=== PATIENT | female | born 1945 | race Two or more races ===

== ENCOUNTER 2017-01-18 08:38 | Inpatient (IN) | payer BC, MEDICAID ==
[~2017-01-18] VITALS: Ht 160 cm; Wt 79.8 kg
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
[2017-01-18 08:45] VITALS: BP 117/51
[2017-01-18 09:04] LABS: BASOPHILS % (AUTO) 0.2 % (0.0-2.0); EOSINOPHILS % (AUTO) 0.1 % (0.0-6.0); HEMATOCRIT 28 % (33-45); HEMOGLOBIN 9.5 g/dL (11.5-14.8); LYMPHOCYTES # (AUTO) 1.5 /CMM (0.8-4.8); LYMPHOCYTES % (AUTO) 13.2 % (20.0-44.0); MEAN CORPUSCULAR HEMOGLOBIN 30 PG (26.0-33.0); MEAN CORPUSCULAR HGB CONC 34 g/dl (31.0-36.0); MEAN CORPUSCULAR VOLUME 88 fL (82-100); MONOCYTES # (AUTO) 0.5 /CMM (0.1-1.30); MONOCYTES % (AUTO) 4.6 % (2.0-12.0); NEUTROPHILS # (AUTO) 9.5 /CMM (1.8-8.9); NEUTROPHILS % (AUTO) 81.9 % (43.0-81.0); PLATELET COUNT (AUTO) 261 /CMM (150-450); RDW COEFFICIENT OF VARIATION 15.6 (11.5-15.0); RED BLOOD CELL COUNT(AUTO) 3.22 MIL/uL (4.0-5.2); WHITE BLOOD COUNT (AUTO) 11.6 K/uL (4.3-11.0)
--- NOTE | 2017-01-18 09:05 | NUR ---
XRAY AT BEDSIDE
[2017-01-18 09:13] LABS: CALCIUM, SERUM 10.1 mg/dL (8.5-10.1); CARBON DIOXIDE 28 mmol/L (21-32); CHLORIDE 99 mmol/L (98-107); CREATININE 1.5 mg/dL (0.6-1.3); GLUCOSE 139 mg/dL (74-106); POTASSIUM 5.1 mmol/L (3.5-5.1); SODIUM SERUM 136 mmol/L (136-145); UREA NITROGEN, BLOOD 35 mg/dL (7-18)
[2017-01-18 09:19] LABS: ALANINE AMINOTRANSFERASE 41 U/L (12-78); ALBUMIN 2.9 g/dL (3.4-5.0); ALKALINE PHOSPHATASE 165 U/L (46-116); ASPARTATE AMINOTRANSFERASE 58 U/L (15-37); BILIRUBIN,DIRECT 0.2 mg/dL (0.0-0.2); BILIRUBIN,TOTAL 0.5 mg/dL (0.2-1.0); TOTAL PROTEIN, SERUM 10.2 g/dL (6.4-8.2)
[2017-01-18 09:21] LABS: TROPONIN I < 0.017 ng/mL (0.00-0.056)
[2017-01-18 09:23] LABS: ACETAMINOPHEN 0 ug/ml (10-30); ALCOHOL, BLOOD < 3 mg/dL (0-0); SALICYLATE 1.5 mg/dL (2.8-20.0)
--- NOTE | 2017-01-18 10:03 | NUR ---
panel batch or continuous still operator paged
--- NOTE | 2017-01-18 10:05 | NUR ---
UA COLLECTED, SENT TO LAB
--- NOTE | 2017-01-18 10:27 | NUR ---
ASSIGNED BED 319. GIVE REPORT TO PAUL SANCHEZ
[2017-01-18] MEDS ORDERED: IV NS 0.9% 500 ML BAG IV ONE (10:30)
[2017-01-18] MEDS ORDERED: FURO20TA4 GT (10:37)
[2017-01-18] MEDS ORDERED: ISOS10TA2 GT (10:37)
[2017-01-18] MEDS ORDERED: IPRA3AMP IH (10:37)
[2017-01-18] MEDS ORDERED: PANT40SU2 GT (10:37)
[2017-01-18] MEDS ORDERED: CHOL200026 GT (10:37)
[2017-01-18] MEDS ORDERED: ASPI81TA2 GT (10:37)
[2017-01-18] MEDS ORDERED: ZOLP5TAB7 GT (10:37)
[2017-01-18] MEDS ORDERED: LEVE500T20 GT (10:37)
[2017-01-18] MEDS ORDERED: GABA-532 GT (10:37)
[2017-01-18] MEDS ORDERED: QUET50TA GT (10:37)
[2017-01-18] MEDS ORDERED: NPH,100V SQ (10:37)
[2017-01-18] MEDS ORDERED: CLON0.5T4 GT (10:37)
[2017-01-18] MEDS ORDERED: OLAN5TAB3 GT (10:37)
[2017-01-18] MEDS ORDERED: LEVO100T9 GT (10:37)
[2017-01-18] MEDS ORDERED: DIVA250T GT (10:37)
[2017-01-18] MEDS ORDERED: BLOO-668 IN (10:37)
[2017-01-18] MEDS ORDERED: FOLI1TAB16 GT (10:37)
[2017-01-18] MEDS ORDERED: ATOR20TA GT (10:37)
[2017-01-18] MEDS ORDERED: INSU100V27 SQ (10:37)
[2017-01-18] MEDS ORDERED: QUET100T PO (10:37)
[2017-01-18] MEDS ORDERED: ACET325T53 GT (10:40)
[2017-01-18] MEDS ORDERED: LORA1TAB GT (10:40)
[2017-01-18] MEDS ORDERED: ACET-73 GT (10:40)
--- NOTE | 2017-01-18 10:44 | NUR ---
REPORT GIVEN TO GALINA, MED SURG 3RD FLOOR
[2017-01-18] MEDS ORDERED: CIPR2.5D EACHEYE (10:51)
[2017-01-18 11:00] LABS: BILIRUBIN,URINE Negative (NEGATIVE); BLOOD, URINE Trace-intact Ery/uL (NEGATIVE); COLOR,URINE Yellow (YELLOW); KETONES,URINE Negative (NEGATIVE); LEUKOCYTE ESTERASE ,URINE Small (NEGATIVE); NITRITE, URINE Negative (NEGATIVE); PH,URINE 6.5 (5.0-8.0); PROTEIN,URINE Negative (NEGATIVE); UGLUCOSE Negative (NEGATIVE); UROBILINOGEN,URINE 0.2 EU/dL (0.2)
[2017-01-18 11:02] LABS: APPEARANCE,URINE Hazy (CLEAR)
[2017-01-18 11:05] LABS: BACTERIA,URINE None seen /HPF (None Seen)
[2017-01-18 11:06] LABS: SQUAMOUS EPITHELIAL CELL,UR Few /HPF (None Seen)
[2017-01-18 11:30] VITALS: BP 132/56
[2017-01-18] MEDS ORDERED: ACETAMINOPHEN 325 MG TABLET MC PRN (11:30)
[2017-01-18] MEDS ORDERED: MAG HYDROX/AL HYDROX/SIMETH 30 ML UDC PO PRN (11:30)
[2017-01-18] MEDS ORDERED: MAGNESIUM HYDROXIDE 30 ML UDC PO PRN (11:30)
[2017-01-18] MEDS ORDERED: ZOLPIDEM TARTRATE 5 MG TABLET PO PRN (11:30)
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
[2017-01-18] MEDS: IV NS 0.9% 1,000 ML IV PRN (11:53)
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
[2017-01-18] MEDS: BLOOD SUGAR DIAGNOSTIC 1 EACH STRIP IN SCH ×2 (12:58→17:38)
[2017-01-18] MEDS: LEVETIRACETAM SOL (5 ML) 100 MG/ML UDC GT SCH ×2 (12:59→22:07)
[2017-01-18] MEDS: DIVALPROEX SODIUM 125 MG CAP.SPRINK GT SCH ×2 (13:00→22:05)
[2017-01-18] MEDS: CIPROFLOXACIN HCL 0.3% 5 ML BOTTLE EACHEYE SCH ×3 (13:00→22:04)
[2017-01-18] MEDS: GABAPENTIN 100 MG CAPSULE GT SCH ×2 (13:00→22:09)
[2017-01-18] MEDS: ENOXAPARIN SODIUM 30 MG/0.3 ML DISP.SYRIN SQ SCH (13:00)
[2017-01-18] MEDS: IPRATROPIUM NEB FS 0.5 MG/2.5 ML AMPUL.NEB NEB SCH ×2 (13:26→20:03)
[2017-01-18] MEDS: ALBUTEROL FS 2.5 MG/0.5 ML VIAL.NEB NEB SCH ×2 (13:26→20:03)
[2017-01-18] MEDS ORDERED: Medication Not On Formulary EA (Ipratropium/Albuterol Sulfate (Duoneb 2.5-0.5 Mg/3 Ml So IH SCH (13:30)
[2017-01-18] MEDS ORDERED: GLYTROL 1,000 ML BAG GT SCH ×2 (14:00→18:10)
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
[2017-01-18 16:00] VITALS: BP 130/52
--- NOTE | 2017-01-18 16:00 | NUR ---
PT WAS SEEN BY TANIAPIPE AND BOILER COVERS SUPERVISOR WHO NOTIFIED APS(ADULT PROTECTION SERVICES) FOR THE PT.
--- NOTE | 2017-01-18 17:00 | NUR ---
PT WAS SEEN BY PSYCH UPKEEP MECHANIC,DR RUSHING WITH NO NEW ORDERS SAYING THAT 51/50 CRITERIA IS NOT MET AND PT DIDN'T VERBALIZE ANY SUICIDAL IDEATIONS.
[2017-01-18] MEDS: QUETIAPINE FUMARATE 25 MG TABLET GT SCH (17:37)
--- NOTE | 2017-01-18 18:14 | NUR ---
UNIFORM ATTENDANT: CLOSING NOTE PT ALERT AND ORIENTED X3. ON VENTILATOR. SATING AT 98%. NO DISTRESS NOTED. NO SOB NOTED. NO PAIN NOTED. RUNNING G-TUBE LUQ WITH GLYTROL AT 65ML/HR FOR 20 HOURS. NO RESIDUAL NOTED. G-TUBE PATENT. NO REDNESS. NO PAIN AT SITE. ALL MEDICATIONS GIVEN VIA G-TUBE. NO ADVERSE REACTIONS NOTED. SKIN INTACT. R AC RUNNING NS AT 75ML/HR. CONTACT DAUGHTER FREDDIE AT FOR ANY QUESTIONS OR UPDATES. PT IS ROMANIAN SPEAKING ONLY. RESTING COMFORTABLY IN BED. CALL LIGHT WITHIN REACH.
--- NOTE | 2017-01-18 19:30 | NUR ---
TELE/ACCOUNT RETENTION REPRESENTATIVE; RECEIVED PT FROM THE DAY SHIFT RN REPORT FOR CONTINUITY OF CARE. PT AT THIS TIME IN BED AWAKE, NON VERBAL . TRACH/ VENT INTACT. IVF ON PROGRESS NS AT 75 ML / HOUR ON RAC INFUSING FINE. GT FEEDING ON PROGRESS WITH 5 ML RESIDUAL. GT SITE INTACT NO DRAINAGE. BED ON LOWER POSITION AND LOCKED FOR SAFETY. SIDE RAILS ARE UP FOR SAFETY. WITH TELEMETRY ON. CONTINUE TO MONITOR . CALL LIGHT WITHIN REACH.
[2017-01-18 20:00] VITALS: BP 123/76
[2017-01-18] MEDS: Z GUARD REMEDY 4 OZ OINT TP SCH (21:00)
--- NOTE | 2017-01-18 21:30 | NUR ---
TELE/ASSISTANCE COORDINATOR; BS 236 NOVOLIN N 32 UNITS SQ GIVEN ORDERED.
[2017-01-18] MEDS: INSULIN NPH, HUMAN ISOPHANE 100 UNIT/ML VIAL SQ SCH (21:39)
[2017-01-18] MEDS: ISOSORBIDE DINITRATE (10MG) 10 MG TABLET GT SCH (22:07)
[2017-01-18] MEDS: FUROSEMIDE 20 MG TABLET GT SCH (22:08)
[2017-01-18] MEDS: OLANZAPINE 5 MG TABLET GT SCH (22:10)
[2017-01-18] MEDS: ATORVASTATIN 10 MG TABLET GT SCH (22:13)
[2017-01-18] MEDS: clonazePAM 0.5 MG TABLET GT SCH (22:13)
[2017-01-18] MEDS: QUETIAPINE FUMARATE 100 MG TABLET PO SCH (22:14)
[2017-01-19] VITALS (7 sets, daily range): BP systolic 121–138; BP diastolic 49–81
--- NOTE | 2017-01-19 | NUR ---
TELE/PHOTOGRAPHIC EQUIPMENT TECHNICIAN; BS 276 NO SLIDING SCALE COVERAGE ORDER. CHARGE NURSE MADE AWARE.
[2017-01-19] MEDS: BLOOD SUGAR DIAGNOSTIC 1 EACH STRIP IN SCH ×4 (00:04→17:03)
[2017-01-19] MEDS: CIPROFLOXACIN HCL 0.3% 5 ML BOTTLE EACHEYE SCH ×6 (00:51→21:26)
[2017-01-19] MEDS: IV NS 0.9% 1,000 ML IV PRN (01:27)
[2017-01-19] MEDS: IPRATROPIUM NEB FS 0.5 MG/2.5 ML AMPUL.NEB NEB SCH ×4 (01:59→20:06)
[2017-01-19] MEDS: ALBUTEROL FS 2.5 MG/0.5 ML VIAL.NEB NEB SCH ×4 (01:59→20:06)
[2017-01-19] MEDS: DIVALPROEX SODIUM 125 MG CAP.SPRINK GT SCH ×3 (05:21→21:25)
[2017-01-19] MEDS: GABAPENTIN 100 MG CAPSULE GT SCH ×3 (05:22→21:27)
--- NOTE | 2017-01-19 06:00 | NUR ---
TELE/FIRE EXTINGUISHER INSPECTOR; BS 237 NO SLIDING SCALE COVERAGE ORDER.
[2017-01-19 06:48] LABS: BASOPHILS % (AUTO) 0.3 % (0.0-2.0); EOSINOPHILS # (AUTO) 0.1 /CMM (0.0-0.7); EOSINOPHILS % (AUTO) 1.7 % (0.0-6.0); HEMATOCRIT 25 % (33-45); HEMOGLOBIN 8.5 g/dL (11.5-14.8); LYMPHOCYTES # (AUTO) 1.4 /CMM (0.8-4.8); LYMPHOCYTES % (AUTO) 17.1 % (20.0-44.0); MEAN CORPUSCULAR HEMOGLOBIN 30 PG (26.0-33.0); MEAN CORPUSCULAR HGB CONC 34 g/dl (31.0-36.0); MEAN CORPUSCULAR VOLUME 89 fL (82-100); MONOCYTES # (AUTO) 0.6 /CMM (0.1-1.30); MONOCYTES % (AUTO) 7.1 % (2.0-12.0); NEUTROPHILS # (AUTO) 6.2 /CMM (1.8-8.9); NEUTROPHILS % (AUTO) 73.8 % (43.0-81.0); PLATELET COUNT (AUTO) 220 /CMM (150-450); RDW COEFFICIENT OF VARIATION 15.4 (11.5-15.0); RED BLOOD CELL COUNT(AUTO) 2.84 MIL/uL (4.0-5.2); WHITE BLOOD COUNT (AUTO) 8.4 K/uL (4.3-11.0)
--- NOTE | 2017-01-19 07:00 | NUR ---
TELE/WATERSHED COORDINATOR; PT ON SR 100. GT FEEDING ON PROGRESS. HAS SOFT BM LAST NIGHT. TRACH/ VENT INTACT. WILL ENDORSE TO THE DAY SHIFT NURSE.
[2017-01-19 07:15] LABS: CREATININE 1.1 mg/dL (0.6-1.3); MAGNESIUM 1.5 mg/dL (1.8-2.4); PHOSPHORUS 3.4 mg/dL (2.5-4.9); POTASSIUM 4.2 mmol/L (3.5-5.1)
--- NOTE | 2017-01-19 08:17 | NUR ---
SEASONAL PACKAGE HANDLER: INITIAL NOTE RECEIVED PT A/O X2-3. COLOMBIAN SPEAKING ONLY. SITTER AT BEDSIDE. VENT PATIENT. NO DISTRESS NOTED. NO SOB NOTED. NO PAIN NOTED. IV RUNNING NS AT 75ML/HR ON RIGHT AC. NO REDNESS OR INFILTRATION NOTED. G-TUBE RUNNING GLYTROL AT 65ML/HR. SITE CLEAR, PATENT. RESTING COMFORTABLY IN BED. CALL LIGHT WITHIN REACH.
[2017-01-19] MEDS: INSULIN NPH, HUMAN ISOPHANE 100 UNIT/ML VIAL SQ SCH ×2 (08:57→21:30)
[2017-01-19] MEDS: LEVETIRACETAM SOL (5 ML) 100 MG/ML UDC GT SCH ×2 (08:59→21:26)
[2017-01-19] MEDS: PANTOPRAZOLE 40 MG TABLET.DR PO SCH (08:59)
[2017-01-19] MEDS: ENOXAPARIN SODIUM 30 MG/0.3 ML DISP.SYRIN SQ SCH (08:59)
[2017-01-19] MEDS: Z GUARD REMEDY 4 OZ OINT TP SCH ×2 (09:00→21:30)
[2017-01-19] MEDS: FUROSEMIDE 20 MG TABLET GT SCH ×2 (09:01→21:26)
[2017-01-19] MEDS: FOLIC ACID 1 MG TABLET GT SCH (09:01)
[2017-01-19] MEDS: ISOSORBIDE DINITRATE (10MG) 10 MG TABLET GT SCH ×2 (09:01→21:26)
[2017-01-19] MEDS: OLANZAPINE 5 MG TABLET GT SCH ×2 (09:01→21:27)
[2017-01-19] MEDS: ASPIRIN 81 MG TAB.CHEW GT SCH (09:01)
[2017-01-19] MEDS: QUETIAPINE FUMARATE 25 MG TABLET GT SCH ×2 (09:01→17:01)
--- NOTE | 2017-01-19 09:59 | NUR ---
ANTONIA filed a report with Dept. of Public health at [email or web address] the following was the response after report was filed by ANTOINA: "Thank you for filing your complaint about the health facility/provider. You will receive a letter from the Licensing and Certification District Office within the next 2 working days. This letter will confirm receipt of your complaint and other important information including the Departments investigation process and your rights as the complainant."
[2017-01-19] MEDS: Magnesium 1GM/D5W 100ML PREMIX 100 ML IV SCH ×3 (11:09→13:31)
[2017-01-19] MEDS: INSULIN NPH/REG 70/30 MIX INJ 100 UNIT/ML CARTRIDGE SQ SCH ×2 (11:53→17:02)
[2017-01-19] MEDS: PROSOURCE / PROSTAT (PYXIS) 30 ML UDC GT SCH (17:07)
--- NOTE | 2017-01-19 18:18 | NUR ---
SIDE LASTER TACK: CLOSING NOTE PT ALERT AND ORIENTED X2-3. ADMINISTERED ALL MEDICATIONS VIA G-TUBE. SITE CLEAR. 3ML RESIDUAL NOTED. NO REDNESS OR DRAINAGE. GLYTROL FEEDING RUNNING AT 65ML/HR FOR 20 HOURS. STOPPED AT 1600 AND SHOULD RESTART AT 2000. NO DISTRESS NOTED. NO SOB NOTED. VENT PATIENT. 1:1 SITTER AT BEDSIDE THROUGHOUT ENTIRE SHIFT. PT ATTEMPTED TO GET OUT OF BED BUT STOPPED AND RE-ORIENTED TO SITUATION AND PLACE. PT VERBALIZED UNDERSTANDING. PT REPOSITIONED [id number]. RESTING COMFORTABLY IN BED. CALL LIGHT WITHIN REACH.
[2017-01-19] MEDS: GLYTROL 1,000 ML BAG GT PRN (19:24)
--- NOTE | 2017-01-19 20:06 | NUR ---
PT RCVD ON [facility] VENT WITH NOTED SETTINGS . VENT ALARM WORKING AND AUDIBLE, VENT PLUGGED INTO RED OUTLET. TRACH SECURE IN AND IN PROPER POSITION. CUFF CHECKED PROCESSING SUPERVISOR. SXN SMALL AMOUNT OF WHITE THICK SECRETIONS . NO RESPIRATORY DISTRESS AT THIS TIME .BREATHING TX'S GIVEN ORDERED, NO ADVERSE REACTION NOTED. AMBU BAG AT [facility], WILL CONTINUE THE PT. Addendum: 01/20/17 at 0448 by SUSANNE FISHER RT WILL CONTINUE TO MONITOR THE PT.
--- NOTE | 2017-01-19 20:14 | NUR ---
RN NOTE RECEIVED REPORT. PT ON TRACH, VENT SETTINGS ACCURATE. RESTING COMFORTABLY IN BED WITH EYES CLOSED. 1:1 SITTER AT BEDSIDE. TELE SHOWS ST 105. IV INTACT AND PATENT, TOLERATING FLUIDS WELL. TOLERATING GTF WELL. CALL LIGHT IN REACH, WILL CONT TO MONITOR.
[2017-01-19] MEDS: QUETIAPINE FUMARATE 100 MG TABLET PO SCH (21:26)
[2017-01-19] MEDS: ATORVASTATIN 10 MG TABLET GT SCH (21:26)
[2017-01-19] MEDS: clonazePAM 0.5 MG TABLET GT SCH (21:30)
[2017-01-20] VITALS: BP 123/45
[2017-01-20] MEDS: IV NS 0.9% 1,000 ML IV PRN (00:16)
[2017-01-20] MEDS: BLOOD SUGAR DIAGNOSTIC 1 EACH STRIP IN SCH ×5 (00:18→23:19)
[2017-01-20] MEDS: CIPROFLOXACIN HCL 0.3% 5 ML BOTTLE EACHEYE SCH ×6 (01:00→20:35)
[2017-01-20] MEDS: IPRATROPIUM NEB FS 0.5 MG/2.5 ML AMPUL.NEB NEB SCH ×4 (01:04→20:09)
[2017-01-20] MEDS: ALBUTEROL FS 2.5 MG/0.5 ML VIAL.NEB NEB SCH ×4 (01:04→20:09)
--- NOTE | 2017-01-20 01:59 | NUR ---
RN NOTE REPORT GIVEN TO FRANK HOLBROOK. PT STABLE, NO DISTRESS NOTED.
--- NOTE | 2017-01-20 02:00 | NUR ---
TELE/ISOTOPE TECHNOLOGIST; RECEIVED PT FROM THE RN FARAZ FOR CONTINUITY OF CARE. PT AT THIS TIME SLEEPING WITH EYES CLOSED. IVF ON PROGRESS. GT FEEDING ON PROGRESS TOLERATED. TRACH/ VENT INTACT. TRACH FRANSISCA # 8. WILL CONTINUE TO MONITOR.
--- NOTE | 2017-01-20 04:00 | NUR ---
TELE/SALES ADMINISTRATION SPECIALIST; PT SLEEPING QUIETLY. TRACH/ VENT INTACT. IVF INFUSING FINE. GT FEEDING ON PROGRESS TOLERATING.
[2017-01-20 04:15] VITALS: BP 125/49
[2017-01-20] MEDS: DIVALPROEX SODIUM 125 MG CAP.SPRINK GT SCH ×3 (05:06→20:15)
[2017-01-20] MEDS: GABAPENTIN 100 MG CAPSULE GT SCH ×3 (05:07→20:15)
--- NOTE | 2017-01-20 06:00 | NUR ---
TELE/REIKI PRACTITIONER; BS 209 NO SLIDING SCALE COVERAGE ORDER.
--- NOTE | 2017-01-20 06:30 | NUR ---
TELE/LIGHT RAIL VEHICLE OPERATOR; PT ON SR 99 WITH PVC'S. MORNING BED BATH RENDERED. GT FEEDING ON PROGRESS. HAS SLIGHT LOOSE BM LAST NIGHT. NO SEIZURE'S ACTIVITIES NOTED. PT WOKE UP EVERY TIMES SHE HAD A BM THEN BACK TO SLEEP. IVF ON PROGRESS . SITTER PRESENT AT ALL TIMES. SOMETIMES PT NOTED SHE KEEP REMOVING THE BED SHEET NAND TRYING TO PUT HER LEGS TO THE SIDE RAILS. ORAL CARE RENDERED. WILL CONTINUE TO MONITOR WILL ENDORSE TO THE DAY SHIFT NURSE.
[2017-01-20 07:34] VITALS: BP 122/57
[2017-01-20 07:46] LABS: CALCIUM, SERUM 9.2 mg/dL (8.5-10.1); MAGNESIUM 1.8 mg/dL (1.8-2.4); POTASSIUM 4.5 mmol/L (3.5-5.1)
[2017-01-20 08:00] VITALS: BP 122/57
--- NOTE | 2017-01-20 08:09 | NUR ---
INSURANCE VERIFIER: INITIAL NOTE RECEIVED PT A/O X2-3. ON VENT. NO DISTRESS NOTED. NO SOB NOTED. NO PAIN NOTED. SLIGHTLY RESTLESS. R AC RUNNING IV NS AT 40ML/HR. NO REDNESS. NO INFILTRATION NOTED. G-TUBE RUNNING GLYTROL AT 65ML/HR FOR 20 HOURS. SITE CLEAR. NO REDNESS NOTED. PATENT. RESTING COMFORTABLY IN BED. CALL LIGHT WITHIN REACH. 1:1 SITTER.
[2017-01-20 08:28] LABS: BASOPHILS % (AUTO) 0.1 % (0.0-2.0); EOSINOPHILS # (AUTO) 0.1 /CMM (0.0-0.7); EOSINOPHILS % (AUTO) 1.2 % (0.0-6.0); HEMATOCRIT 22 % (33-45); HEMOGLOBIN 7.4 g/dL (11.5-14.8); LYMPHOCYTES # (AUTO) 2.3 /CMM (0.8-4.8); LYMPHOCYTES % (AUTO) 19.6 % (20.0-44.0); MEAN CORPUSCULAR HEMOGLOBIN 29 PG (26.0-33.0); MEAN CORPUSCULAR HGB CONC 33 g/dl (31.0-36.0); MEAN CORPUSCULAR VOLUME 87 fL (82-100); MONOCYTES # (AUTO) 0.7 /CMM (0.1-1.30); MONOCYTES % (AUTO) 6.2 % (2.0-12.0); NEUTROPHILS # (AUTO) 8.6 /CMM (1.8-8.9); NEUTROPHILS % (AUTO) 72.9 % (43.0-81.0); PLATELET COUNT (AUTO) 207 /CMM (150-450); RDW COEFFICIENT OF VARIATION 14.9 (11.5-15.0); RED BLOOD CELL COUNT(AUTO) 2.57 MIL/uL (4.0-5.2); WHITE BLOOD COUNT (AUTO) 11.8 K/uL (4.3-11.0)
--- NOTE | 2017-01-20 09:10 | NUR ---
AM CARE DONE AND REPOSITIONED PT EVERY TWO HRS.PT REFUSED TO HAVE PILLOWS PLACED UNDER HER HEELS AND KICKS THE PILLOWS OUT OF HER ARMS AND BLE.ON DVT PUMP.REAPPLIED PILLOWS TO AFLOAT HEELS NEEDED.
[2017-01-20] MEDS: ASPIRIN 81 MG TAB.CHEW GT SCH (09:11)
[2017-01-20] MEDS: LEVETIRACETAM SOL (5 ML) 100 MG/ML UDC GT SCH ×2 (09:11→20:14)
[2017-01-20] MEDS: FOLIC ACID 1 MG TABLET GT SCH (09:11)
[2017-01-20] MEDS: PROSOURCE / PROSTAT (PYXIS) 30 ML UDC GT SCH ×2 (09:11→16:38)
[2017-01-20] MEDS: ISOSORBIDE DINITRATE (10MG) 10 MG TABLET GT SCH ×2 (09:11→20:22)
[2017-01-20] MEDS: OLANZAPINE 5 MG TABLET GT SCH ×2 (09:11→20:15)
[2017-01-20] MEDS: FUROSEMIDE 20 MG TABLET GT SCH ×2 (09:11→20:31)
[2017-01-20] MEDS: PANTOPRAZOLE 40 MG TABLET.DR PO SCH (09:12)
[2017-01-20] MEDS: QUETIAPINE FUMARATE 25 MG TABLET GT SCH ×2 (09:12→16:36)
[2017-01-20] MEDS: INSULIN NPH/REG 70/30 MIX INJ 100 UNIT/ML CARTRIDGE SQ SCH ×2 (09:16→16:39)
[2017-01-20] MEDS: ENOXAPARIN SODIUM 30 MG/0.3 ML DISP.SYRIN SQ SCH (09:16)
[2017-01-20] MEDS: INSULIN NPH, HUMAN ISOPHANE 100 UNIT/ML VIAL SQ SCH ×2 (09:16→21:04)
[2017-01-20] MEDS: Z GUARD REMEDY 4 OZ OINT TP SCH (09:17)
[2017-01-20] MEDS: Z GUARD REMEDY 2 OZ OINT TP SCH ×2 (09:24→20:31)
[2017-01-20] MEDS: LORAZEPAM 1 MG TABLET GT PRN ×2 (09:27→16:36)
--- NOTE | 2017-01-20 09:27 | NUR ---
POULTRY OFFAL ICER: NOTE PT WAS RESTLESS IN BED. KICKING PILLOWS OF, TRYING TO LIFT SELF UP, AND TRYING TO PULL OUT TRACH. FACIAL GRIMACING NOTED.SITTER 1:1 THROUGHOUT SHIFT. RE-ORIENTED PT TO CONDITION, AND PLACE. REPOSITIONED PT FOR COMFORT. NORCO 5-325MG 1 TAB G-TUBE AND ATIVAN 1MG G-TUBE ADMINISTERED DUE TO PTS CONDITION. WILL CONTINUE TO MONITOR.
[2017-01-20] MEDS: HYDROCODONE/APAP 5/325MG 1 EACH TABLET PO PRN (09:28)
--- NOTE | 2017-01-20 10:27 | NUR ---
GATE CUTTER: NOTE RE-ASSESSED PT, PT NOT RESTLESS, NO DISTRESS NOTED. SLEEPING COMFORTABLY IN BED BUT AROUSABLE. MEDICATION GIVEN EFFECTIVE. CALL LIGHT WITHIN REACH. 1:1 SITTER.
--- NOTE | 2017-01-20 10:42 | NUR ---
WOUND CARE CONSULT: PT PRESENTS IMMOBILE AND INCONTINENT, ON VENTILATOR. DRY CALLUS NOTED TO RT PLANTAR FOOT, PRESENT ON ADMISSION. SOME SCARRING AND DISCOLORATION NOTED TO UPPER AND LOWER EXTREMITIES. SOME SKIN STAINING NOTED TO BUTTOCKS. ALL SKIN PROTECTION MEASURES IN PLACE AND DISCUSSED WITH NURSING STAFF. WILL SEE PRN. BARNES IN AGREEMENT WITH PLAN OF CARE. CURRENT KENDRA SCORE IS 12. Addendum: 01/20/17 at 1044 by GLORY SALMON WNDNU Amended: Links added.
--- NOTE | 2017-01-20 12:00 | NUR ---
VIDEO GAME PRODUCER: NOTE PT TURNED AND REPOSITIONED Q2 HOURS. COMFORTABLY SLEEPING IN BED. AROUSABLE TO LIGHT TOUCH. NO DISTRESS. FAMILY WENT TO MEET WITH THE INTERNET ARCHITECT. 1:1 SITTER.
--- NOTE | 2017-01-20 18:48 | NUR ---
TWIST PACKER: CLOSING NOTE PT A/O X2-3. TOOK ALL MEDICATIONS ON TIME VIA G-TUBE. SITE CLEAR AND PATENT. NO ADVERSE REACTIONS NOTED. ADMINISTERED ATIVAN X2 DURING SHIFT DUE TO RESTLESSNESS, PUSHING PILLOWS AWAY, TRYING TO MOVE OUT OF BED. RE-ORIENTED TO SITUATION IMMEDIATELY. SITTER 1:1. ATIVAN WAS EFFECTIVE IN CALMING PT. NO SOB NOTED. VENT PT. PAIN CONTROLLED WITH PAIN MANAGEMENT. IV R AC RUNNING NS AT 40ML/HR. SITE CLEAR AND PATENT. RESTING COMFORTABLY IN BED. CALL LIGHT WITHIN REACH.
--- NOTE | 2017-01-20 19:52 | NUR ---
TELE/RN NOTES PATIENT IN BED,HOB ELEVATED, RESPIRATIONS EVEN AND UNLABORED.SKIN WARM TO TOUCH, REQUIRE 1:1 SITTER PATIENT TRIES TO PULL OUT TUBINGS. ON SR 98. ON VENT W/ SETTING AC 14, FI02-40%, TV 500 PEEP 5. BED IN LOCK POSITION GTUBE WILL START FEEDING 1999. WILL MONITOR RESIDUAL/PLACEMENT. WILL CONTINUE TO MONITOR.
[2017-01-20 20:26] VITALS: BP 138/55
[2017-01-20] MEDS: GLYTROL 1,000 ML BAG GT PRN (20:57)
[2017-01-20] MEDS: clonazePAM 0.5 MG TABLET GT SCH (22:29)
[2017-01-20] MEDS: ATORVASTATIN 10 MG TABLET GT SCH (22:29)
[2017-01-20] MEDS: QUETIAPINE FUMARATE 100 MG TABLET PO SCH (22:29)
[2017-01-21] VITALS: BP 133/54
[2017-01-21] MEDS: CIPROFLOXACIN HCL 0.3% 5 ML BOTTLE EACHEYE SCH ×6 (01:01→21:24)
--- NOTE | 2017-01-21 01:12 | NUR ---
TELE/RN NOTES PATIENT HAD BM 5 TIMES SEMI FORMED DURING SHIFT.
[2017-01-21] MEDS: IPRATROPIUM NEB FS 0.5 MG/2.5 ML AMPUL.NEB NEB SCH ×4 (02:08→19:41)
[2017-01-21] MEDS: ALBUTEROL FS 2.5 MG/0.5 ML VIAL.NEB NEB SCH ×4 (02:08→19:41)
[2017-01-21] MEDS: ACETAMINOPHEN 325 MG TABLET PO PRN (02:44)
[2017-01-21] MEDS: LORAZEPAM 1 MG TABLET GT PRN ×2 (03:15→11:42)
--- NOTE | 2017-01-21 03:20 | NUR ---
tele/rn notes patient pulling out tubings, sitter at bedside, assist and remind not to pull tubings, patient unable to relax, as needed medication ativan give and monitoring for effectiveness.
[2017-01-21 04:00] VITALS: BP 146/74
[2017-01-21] MEDS: DIVALPROEX SODIUM 125 MG CAP.SPRINK GT SCH ×3 (04:19→21:24)
[2017-01-21] MEDS: GABAPENTIN 100 MG CAPSULE GT SCH ×3 (04:19→21:25)
[2017-01-21] MEDS: BLOOD SUGAR DIAGNOSTIC 1 EACH STRIP IN SCH ×4 (05:35→23:47)
[2017-01-21] MEDS: IV NS 0.9% 1,000 ML IV PRN (06:26)
--- NOTE | 2017-01-21 06:36 | NUR ---
329-1 Tele/rn closing notes patient hob elevated, on vent , traech,, w/ gtube, patent and w/ no residual., require extensive assistance and change diaper for bm, had bm 7x.will endorse to am tong paul.
--- NOTE | 2017-01-21 07:10 | NUR ---
customs compliance analyst Initial Notes: Received patient resting in bed. Patient alert oriented x2-3. Non-labored breathing noted. Patient on Mechanical Ventilation. No signs of distress. Patient on Telemetry monitoring with sinus rhythm and PVCs noted. IV patent and intact. Gtube feeding running. Bed in lowest/locked position. Call light within reach. Sitter at bed side. Will continue to monitor.
[2017-01-21 08:00] VITALS: BP_SYST 132; BP_SYST 145; BP_DIAS 50; BP_DIAS 70
[2017-01-21] MEDS: ISOSORBIDE DINITRATE (10MG) 10 MG TABLET GT SCH ×2 (09:00→21:00)
[2017-01-21] MEDS: FOLIC ACID 1 MG TABLET GT SCH (09:21)
[2017-01-21] MEDS: LEVETIRACETAM SOL (5 ML) 100 MG/ML UDC GT SCH ×2 (09:21→21:24)
[2017-01-21] MEDS: QUETIAPINE FUMARATE 25 MG TABLET GT SCH ×2 (09:22→16:22)
[2017-01-21] MEDS: ASPIRIN 81 MG TAB.CHEW GT SCH (09:23)
[2017-01-21] MEDS: FUROSEMIDE 20 MG TABLET GT SCH ×2 (09:23→21:00)
[2017-01-21] MEDS: PANTOPRAZOLE 40 MG TABLET.DR PO SCH (09:23)
[2017-01-21] MEDS: OLANZAPINE 5 MG TABLET GT SCH ×2 (09:24→21:25)
[2017-01-21] MEDS: PROSOURCE / PROSTAT (PYXIS) 30 ML UDC GT SCH ×2 (09:46→16:21)
[2017-01-21 09:48] LABS: BASOPHILS % (AUTO) 0.1 % (0.0-2.0); EOSINOPHILS # (AUTO) 0.2 /CMM (0.0-0.7); HEMATOCRIT 26 % (33-45); HEMOGLOBIN 8.4 g/dL (11.5-14.8); LYMPHOCYTES # (AUTO) 2.2 /CMM (0.8-4.8); LYMPHOCYTES % (AUTO) 20.2 % (20.0-44.0); MEAN CORPUSCULAR HEMOGLOBIN 28 PG (26.0-33.0); MEAN CORPUSCULAR HGB CONC 32 g/dl (31.0-36.0); MEAN CORPUSCULAR VOLUME 88 fL (82-100); MONOCYTES # (AUTO) 0.7 /CMM (0.1-1.30); MONOCYTES % (AUTO) 6.2 % (2.0-12.0); NEUTROPHILS # (AUTO) 7.8 /CMM (1.8-8.9); NEUTROPHILS % (AUTO) 71.5 % (43.0-81.0); PLATELET COUNT (AUTO) 187 /CMM (150-450); RDW COEFFICIENT OF VARIATION 15.1 (11.5-15.0); RED BLOOD CELL COUNT(AUTO) 2.96 MIL/uL (4.0-5.2); WHITE BLOOD COUNT (AUTO) 10.8 K/uL (4.3-11.0)
[2017-01-21] MEDS: INSULIN NPH, HUMAN ISOPHANE 100 UNIT/ML VIAL SQ SCH ×2 (09:48→21:00)
[2017-01-21] MEDS: INSULIN NPH/REG 70/30 MIX INJ 100 UNIT/ML CARTRIDGE SQ SCH ×2 (09:48→16:28)
[2017-01-21] MEDS: ENOXAPARIN SODIUM 30 MG/0.3 ML DISP.SYRIN SQ SCH (09:51)
[2017-01-21] MEDS: Z GUARD REMEDY 2 OZ OINT TP SCH ×2 (09:56→21:25)
[2017-01-21 12:00] VITALS: BP 99/54
[2017-01-21 16:00] VITALS: BP 108/42
--- NOTE | 2017-01-21 18:50 | NUR ---
associate professor of geography Closing Notes: Patient resting in bed. Patient alert oriented x2-3. Non-labored breathing noted. Patient on Mechanical Ventilation. No signs of distress. Patient on Telemetry monitoring with sinus rhythm noted. IV patent and intact. Bed in lowest/locked position. Call light within reach. Sitter at bed side. Will endorse to next shift.
--- NOTE | 2017-01-21 19:45 | NUR ---
SLEEVE FIXER NOTES RECEIVED ON BED A/O X1-2,APPEARS RESTLESS.ON TRACH TO VENT AC-14,TV-500,FIO2-40%,PEEP-5,SHILEY#8 TOLERATED WELL.SUCTION ORALLY AND VIA TRACH NEEDED.SITTER AT BEDSIDE FOR SUICIDAL IDEATION.SCD MACHINE IN USED FOR DVT PROPHYLAXIS,ISOFLEX BED IN USED FOR SKIN MANAGEMENT.REPOSITION Q 2 HOURS PER PROTOCOL.GT FEEDING HOLD FOR 4 HOURS.OFF AT 1600,ON AT 2000.GT FLUSHED WITH 30ML WATER,NO RESIDUAL VOLUME NOTED.ABDOMEN SOFT NON DISTENDED,PER REPORT,SHE HAD 5X LOOSE BM.HAD ONE ON MY SHIFT BEFORE FEEDING START AND IT WAS SOFT AND FORMED.WITH IVF NS AT 40ML/HR RATE.SITE PATENT,RIGHT AC.WILL CONTONUE TO MONITOR STATUS.
[2017-01-21 19:57] LABS: CALCIUM, SERUM 9.3 mg/dL (8.5-10.1); MAGNESIUM 1.6 mg/dL (1.8-2.4); POTASSIUM 3.9 mmol/L (3.5-5.1)
[2017-01-21] MEDS: GLYTROL 1,000 ML BAG GT PRN (20:14)
--- NOTE | 2017-01-21 21:00 | NUR ---
SENIOR CLINICAL PROJECT MANAGER NOTES DUE PO MEDS GIVEN VIA GT,HOB ELEVATED FOR ASPIRATION PRECAUTION
--- NOTE | 2017-01-21 21:00 | NUR ---
GEAR ROOM KEEPER NOTES DUE BP MED HELD FOR LOW DIASTOLIC BP 129/51
[2017-01-21 22:00] VITALS: BP 129/51
--- NOTE | 2017-01-21 22:00 | NUR ---
GOSPEL SINGER NOTES ACCU-CHECK BLOOD SUGAR CHECK 68,ASYMPTOMATIC,OPEN EYES,NON DIAPHORETIC. ORANGE JUICE GIVEN WITH SUGAR,AND APPLE SAUCE GIVEN WITH DUE MEDS,ADDED SUGAR TAKEN WELL.NEGATIVE FOR ASPIRATION.WILL CONTINUE TO MONITOR STATUS. Addendum: 01/21/17 at 2316 by WICHO SCHULTZ RN WRONG PATIENT NOTES
--- NOTE | 2017-01-21 22:00 | NUR ---
LUMBER SALVAGER NOTES ACCU-CHECK BLOOD SUGAE CHECK 96,NOVOLIN N 32 UNITS HELD. GLYTROL FEEDING IN PROGRESS.
[2017-01-21] MEDS: ATORVASTATIN 10 MG TABLET GT SCH (22:31)
[2017-01-21] MEDS: QUETIAPINE FUMARATE 100 MG TABLET PO SCH (22:31)
[2017-01-21] MEDS: clonazePAM 0.5 MG TABLET GT SCH (22:31)
--- NOTE | 2017-01-21 23:51 | NUR ---
INSPECTOR FIBROUS WALLBOARD NOTES ACCU-CHECK BLOOD SUGAR CHECK 102,NO INSULIN COVERAGE
[2017-01-22] VITALS: BP 100/50
[2017-01-22] MEDS: CIPROFLOXACIN HCL 0.3% 5 ML BOTTLE EACHEYE SCH ×6 (01:01→20:50)
[2017-01-22] MEDS: ALBUTEROL FS 2.5 MG/0.5 ML VIAL.NEB NEB SCH ×4 (01:52→19:42)
[2017-01-22] MEDS: IPRATROPIUM NEB FS 0.5 MG/2.5 ML AMPUL.NEB NEB SCH ×4 (01:52→19:42)
[2017-01-22 04:00] VITALS: BP 120/40
[2017-01-22] MEDS: GABAPENTIN 100 MG CAPSULE GT SCH ×3 (04:30→20:50)
[2017-01-22] MEDS: DIVALPROEX SODIUM 125 MG CAP.SPRINK GT SCH ×3 (04:30→20:50)
--- NOTE | 2017-01-22 04:30 | NUR ---
STABLEHAND NOTES AWAKE,RESTLESS,DUE NEURONTIN AND DEPAKOTE /GT GIVEN EARLY TO CALM HER DOWN
--- NOTE | 2017-01-22 05:45 | NUR ---
SENIOR BUYER PLANNER NOTES ACCU-CHECK BLOOD SUGAR CHECK 132,NO SLIDING SCALE COVERAGE BUT NPH 70/30 10 UNITS AND NOVOLIN N 32 UNITS AT 0900.
[2017-01-22] MEDS: BLOOD SUGAR DIAGNOSTIC 1 EACH STRIP IN SCH ×3 (05:50→17:31)
--- NOTE | 2017-01-22 06:56 | NUR ---
YOUTH SUPPORT WORKER NOTES STILL WITH EPISODE ON CONFUSION.SLEPT WITH INTERVALS.IVF INFUSING.VENT SETTINGS TOLERATED WELL.GT FEEDING IN PROGRESS.WITH 5 BM LAST NIGHT,WITH ONLY LOOSE BM MIX WITH PEE.IN NO ACUTE DISTRESS.SITTER AT BEDSIDE..WILL ENDORSE TO DAY NURSE FOR SANJEEV.
--- NOTE | 2017-01-22 07:15 | NUR ---
COFFEE ROASTER Notes Patient in bed, A/O x1. On Tele monitor sinus rhythm with PVC HR 94. On mech vent. Maintain HOB elevated, on Gtube feeding Glytrol at 65ml/hr. No c/o pain at this time, no moaning, no facial grimacing. Call light within reach. 1:1 sitter at the bedside.
[2017-01-22] MEDS: PANTOPRAZOLE 40 MG TABLET.DR PO SCH (07:43)
[2017-01-22] MEDS: LORAZEPAM 1 MG TABLET GT PRN ×2 (07:43→13:31)
--- NOTE | 2017-01-22 07:47 | NUR ---
Patient in bed, appears anxious, slides herself while lying in bed, fall precaution observed. Given ativan 1 mg via GT. 1:1 sitter at the bedside.
[2017-01-22 08:00] VITALS: BP 121/57
[2017-01-22] MEDS: LEVETIRACETAM SOL (5 ML) 100 MG/ML UDC GT SCH ×2 (08:47→20:50)
[2017-01-22] MEDS: FOLIC ACID 1 MG TABLET GT SCH (08:47)
[2017-01-22] MEDS: ISOSORBIDE DINITRATE (10MG) 10 MG TABLET GT SCH ×2 (08:47→20:54)
[2017-01-22] MEDS: FUROSEMIDE 20 MG TABLET GT SCH ×2 (08:47→20:53)
[2017-01-22] MEDS: ASPIRIN 81 MG TAB.CHEW GT SCH (08:47)
[2017-01-22] MEDS: ENOXAPARIN SODIUM 30 MG/0.3 ML DISP.SYRIN SQ SCH (08:49)
[2017-01-22] MEDS: OLANZAPINE 5 MG TABLET GT SCH ×2 (08:53→20:49)
[2017-01-22] MEDS: PROSOURCE / PROSTAT (PYXIS) 30 ML UDC GT SCH ×2 (08:53→16:25)
[2017-01-22] MEDS: QUETIAPINE FUMARATE 25 MG TABLET GT SCH ×2 (08:53→16:25)
[2017-01-22] MEDS: INSULIN NPH/REG 70/30 MIX INJ 100 UNIT/ML CARTRIDGE SQ SCH ×2 (09:04→17:37)
[2017-01-22] MEDS: INSULIN NPH, HUMAN ISOPHANE 100 UNIT/ML VIAL SQ SCH ×2 (09:05→20:57)
[2017-01-22] MEDS: Z GUARD REMEDY 2 OZ OINT TP SCH ×2 (09:07→20:56)
[2017-01-22] MEDS: IV NS 0.9% 1,000 ML IV PRN (11:38)
[2017-01-22 12:00] VITALS: BP 122/59
[2017-01-22] MEDS: ACETAMINOPHEN 325 MG TABLET PO PRN (12:18)
[2017-01-22 14:11] LABS: BASOPHILS % (AUTO) 0.5 % (0.0-2.0); EOSINOPHILS # (AUTO) 0.2 /CMM (0.0-0.7); EOSINOPHILS % (AUTO) 2.1 % (0.0-6.0); HEMATOCRIT 24 % (33-45); HEMOGLOBIN 7.9 g/dL (11.5-14.8); LYMPHOCYTES # (AUTO) 2.3 /CMM (0.8-4.8); LYMPHOCYTES % (AUTO) 23.7 % (20.0-44.0); MEAN CORPUSCULAR HEMOGLOBIN 29 PG (26.0-33.0); MEAN CORPUSCULAR HGB CONC 33 g/dl (31.0-36.0); MEAN CORPUSCULAR VOLUME 87 fL (82-100); MONOCYTES # (AUTO) 0.7 /CMM (0.1-1.30); MONOCYTES % (AUTO) 6.7 % (2.0-12.0); NEUTROPHILS # (AUTO) 6.5 /CMM (1.8-8.9); PLATELET COUNT (AUTO) 202 /CMM (150-450); RED BLOOD CELL COUNT(AUTO) 2.73 MIL/uL (4.0-5.2); WHITE BLOOD COUNT (AUTO) 9.7 K/uL (4.3-11.0)
[2017-01-22 14:25] LABS: CALCIUM, SERUM 9.1 mg/dL (8.5-10.1); CREATININE 0.8 mg/dL (0.6-1.3); MAGNESIUM 1.4 mg/dL (1.8-2.4); PHOSPHORUS 3.8 mg/dL (2.5-4.9); POTASSIUM 3.7 mmol/L (3.5-5.1)
[2017-01-22 16:00] VITALS: BP 146/69
[2017-01-22] MEDS: Magnesium 1GM/D5W 100ML PREMIX 100 ML IV SCH ×4 (16:56→20:27)
--- NOTE | 2017-01-22 17:16 | NUR ---
Stool OB resulted positive. hemoglobin 7.9 hct 24 no active bleeding. Notified Jolley/HANDBAG FINISHER ordered to changed protonix to 2 x a day and refer patient to GI. Charge nurse made aware.
[2017-01-22] MEDS: PANTOPRAZOLE 40 MG/PACK PACK GT SCH (17:31)
--- NOTE | 2017-01-22 18:34 | NUR ---
KNIFE GLAZER closing notes Patient in bed, on tele monitor sinus rhythm HR 98. Vent settings remains the same, breathing treatment given by RT. Blood sugar monitored, on gtube feeding glytrol at 65ml/hr, tolerating well, no episode of vomiting, no c/o nausea. Turn and reposition in bed, with anxiety behavior during the shift, medicated PRN. 1:1 sitter at the bed side. For GI consult per Shola/FOAM MOLDER. Will endorse to rn night RN for continuity of care.
--- NOTE | 2017-01-22 19:30 | NUR ---
CAREER PLACEMENT SERVICES COUNSELOR OPENING NOTES: PATIENT IN BED, AOX1, OPENS EYES SPONTANEOUSLY WHEN CALLED, APPEARS CALM AND IN NO DISTRESS AT THIS TIME. ON [facility] VENTILATION WITH THE FF SETTINGS: AC:14, TV: 500, FIO2: 40%, PEEP: 5. RHONCHI SOUNDS HEARD OVER MID UPPER LUNG ELLIS. ON TELE MONITORING: SR AT RATE OF 90S WITH PACS. WITH G TUBE AT MID ABDOMEN, BUT FEEDING TO BE STARTED AT 2000 PM. PIV OVER RAC G20 INTACT AND INFUSING WELL CURRENTLY WITH 3RD BAG OF MAGNESIUM 1 GM IV. PROVIDED FOR COMFORT AND SAFETY. BED IN LOWEST AND LOCKED POSITION, SIDERAILS UP X3, SITTER AT BEDSIDE. WILL CONT TO MONITOR.
[2017-01-22 20:00] VITALS: BP 158/62
[2017-01-22] MEDS: GLYTROL 1,000 ML BAG GT PRN (20:12)
--- NOTE | 2017-01-22 20:20 | NUR ---
RN NOTES: GTUBE WITHOUT RESIDUAL, RESTARTED FEEDING OF GLYTROL AT 65 ML/HR. MAINTAINED HOB ELEVATED AT ALL TIMES.
[2017-01-22] MEDS: ATORVASTATIN 10 MG TABLET GT SCH (22:43)
[2017-01-22] MEDS: QUETIAPINE FUMARATE 100 MG TABLET PO SCH (22:43)
[2017-01-22] MEDS: clonazePAM 0.5 MG TABLET GT SCH (22:43)
--- NOTE | 2017-01-22 23:57 | NUR ---
RN NOTES: SPOKE TO DR DINH RE LOOSE , FOUL SMELLING DIARRHEA, ORDERED FOR STOOL FOR C.DIFF. ALSO INFORMED MD THAT PATIENT IS HAVING SR AT RATE OF 90S WITH PACs IN [facility]. NO ORDER GIVEN.
[2017-01-23] VITALS: BP_SYST 117; BP_SYST 142; BP_DIAS 49; BP_DIAS 52
[2017-01-23] MEDS: BLOOD SUGAR DIAGNOSTIC 1 EACH STRIP IN SCH ×4 (00:09→17:00)
--- NOTE | 2017-01-23 00:15 | NUR ---
RN NOTES: BS CHECKED AT 220 MG/DL, NO INSULIN SLIDING SCALE INDICATED, BUT 32 UNITS HUMULIN N GIVEN SQ EARLIER AT 2100 PM. ON CONTINUOUS GT FEEDING OF GLYTROL RUNNING AT 65 ML/HR.
[2017-01-23] MEDS: CIPROFLOXACIN HCL 0.3% 5 ML BOTTLE EACHEYE SCH ×6 (01:18→21:39)
[2017-01-23] MEDS: IPRATROPIUM NEB FS 0.5 MG/2.5 ML AMPUL.NEB NEB SCH ×4 (01:25→19:55)
[2017-01-23] MEDS: ALBUTEROL FS 2.5 MG/0.5 ML VIAL.NEB NEB SCH ×4 (01:25→19:55)
[2017-01-23 04:00] VITALS: BP 144/63
[2017-01-23] MEDS: DIVALPROEX SODIUM 125 MG CAP.SPRINK GT SCH ×3 (04:38→21:40)
[2017-01-23] MEDS: GABAPENTIN 100 MG CAPSULE GT SCH ×3 (04:38→21:40)
--- NOTE | 2017-01-23 06:00 | NUR ---
RN NOTES: BLOOD SUGAR CHECKED AT 179 MG/DL, NO INSULIN SS INDICATED. HUMULIN N 32 UNITS GIVEN AT 2100 PM LAST NIGHT. ON CONTINUOUS GT FEEDING OF GLYTROL AT 65 ML/HR, PATIENT TOLERATING FEEDING WELL.
[2017-01-23 06:44] LABS: CALCIUM, SERUM 8.8 mg/dL (8.5-10.1); CREATININE 0.9 mg/dL (0.6-1.3); MAGNESIUM 1.9 mg/dL (1.8-2.4); POTASSIUM 3.7 mmol/L (3.5-5.1)
--- NOTE | 2017-01-23 07:10 | NUR ---
DIRECTOR AMBULATORY Notes Patient in bed, A/O x1. Appears calm, On Tele monitor sinus rhythm with PAC HR 86. On mech vent. Maintain HOB elevated, on Gtube feeding Glytrol at 65ml/hr. Appears comfortable in bed, No c/o pain at this time, no moaning, no facial grimacing. Call light within reach. 1:1 sitter at the bedside. Will cont to monitor.
--- NOTE | 2017-01-23 07:30 | NUR ---
MS RN CLOSING NOTES: PATIENT IN BED, AOX1, ON [facility] VENTILATION, BREATHING EVEN AND UNLABORED, O2 SATS AT 100% THROUGH SHIFT. APPEARED CALM AND WAS ABLE TO SLEEP WELL THROUGH NIGHT. ON TELE MONITORING: SR AT RATE OF 90S WITH PACS. PIV OVER RAC INFUSING WELL WITH NS RUNNING AT 40 ML/HR. DUE MEDS GIVEN. PROVIDED FOR COMFORT AND SAFETY. TURNED AND REPOSITIONED. NO ACUTE CHANGE IN CONDITION NOTED THROUGH SHIFT. BED IN LOWEST NAD LOCKED POSITION. ENDORSED TO PAUL VASQUEZ FOR SANJEEV.
[2017-01-23 08:00] VITALS: BP 119/60
[2017-01-23] MEDS: PROSOURCE / PROSTAT (PYXIS) 30 ML UDC GT SCH ×2 (08:07→16:09)
[2017-01-23] MEDS: FOLIC ACID 1 MG TABLET GT SCH (08:07)
[2017-01-23] MEDS: ASPIRIN 81 MG TAB.CHEW GT SCH (08:07)
[2017-01-23] MEDS: FUROSEMIDE 20 MG TABLET GT SCH ×2 (08:07→21:40)
[2017-01-23] MEDS: LEVETIRACETAM SOL (5 ML) 100 MG/ML UDC GT SCH ×2 (08:07→21:39)
[2017-01-23] MEDS: PANTOPRAZOLE 40 MG/PACK PACK GT SCH ×2 (08:07→16:09)
[2017-01-23] MEDS: ISOSORBIDE DINITRATE (10MG) 10 MG TABLET GT SCH ×2 (08:08→21:00)
[2017-01-23] MEDS: OLANZAPINE 5 MG TABLET GT SCH ×2 (08:08→21:40)
[2017-01-23] MEDS: QUETIAPINE FUMARATE 25 MG TABLET GT SCH ×2 (08:13→16:09)
[2017-01-23] MEDS: INSULIN NPH/REG 70/30 MIX INJ 100 UNIT/ML CARTRIDGE SQ SCH ×2 (08:21→17:01)
[2017-01-23] MEDS: ENOXAPARIN SODIUM 30 MG/0.3 ML DISP.SYRIN SQ SCH (09:00)
[2017-01-23] MEDS: INSULIN NPH, HUMAN ISOPHANE 100 UNIT/ML VIAL SQ SCH ×2 (09:10→21:00)
[2017-01-23] MEDS: Z GUARD REMEDY 2 OZ OINT TP SCH ×2 (09:11→21:47)
--- NOTE | 2017-01-23 09:21 | NUR ---
ciprofloxacin eyedrops not available at this time, informed pharmacy.
--- NOTE | 2017-01-23 11:30 | NUR ---
Patient is on contact isolation C-diff stool. Notified Nunuz/STATISTICAL PROGRAMMER, Family informed. Contact isolation observed.
[2017-01-23 12:00] VITALS: BP 124/50
[2017-01-23 16:00] VITALS: BP 118/58
[2017-01-23] MEDS: IV NS 0.9% 1,000 ML IV PRN (16:09)
[2017-01-23] MEDS: VANCOMYCIN HCL 125 MG/2.5 ML ORAL.SUSP PO SCH (17:02)
--- NOTE | 2017-01-23 18:57 | NUR ---
SLAT TWISTER closing notes Patient in bed, on tele monitor sinus rhythm with PAC HR 86. Vent settings remains the same, breathing treatment given by RT. On gtube feeding glytrol at 65ml/hr, tolerating well, no episode of vomiting, no c/o nausea. Started on antibiotic today for c-diff stool, contact isolation observed. 1:1 sitter at the bed side. For GI consult. Will endorse to casino shift manager RN for continuity of care.
--- NOTE | 2017-01-23 19:35 | NUR ---
COMMERCIAL ASSISTANT Notes Patient in bed, A/O x1. Appears calm, On Tele monitor sinus rhythm with PAC HR 88. On mech vent. Maintain HOB elevated, on Gtube feeding Glytrol at 65ml/hr to be started at 1999. iv access is intact and infusing with NS @ 40cc/hr. Appears comfortable in bed, No c/o pain at this time, no moaning, no facial grimacing. Call light within reach. 1:1 sitter at the bedside. Will cont to monitor.
[2017-01-23] MEDS: LORAZEPAM 1 MG TABLET GT PRN (19:47)
--- NOTE | 2017-01-23 20:00 | NUR ---
pt began to get anxious, ativan was administered
[2017-01-23] MEDS: GLYTROL 1,000 ML BAG GT PRN (20:05)
--- NOTE | 2017-01-23 20:20 | NUR ---
glytrol @ 65 ml/hr was started
[2017-01-23] MEDS: QUETIAPINE FUMARATE 100 MG TABLET PO SCH (21:40)
[2017-01-23] MEDS: ATORVASTATIN 10 MG TABLET GT SCH (21:40)
[2017-01-23] MEDS: clonazePAM 0.5 MG TABLET GT SCH (21:40)
[2017-01-24] VITALS: BP 150/95
[2017-01-24] MEDS: VANCOMYCIN HCL 125 MG/2.5 ML ORAL.SUSP PO SCH ×5 (00:03→23:15)
[2017-01-24] MEDS: CIPROFLOXACIN HCL 0.3% 5 ML BOTTLE EACHEYE SCH ×6 (00:19→21:34)
[2017-01-24] MEDS: IPRATROPIUM NEB FS 0.5 MG/2.5 ML AMPUL.NEB NEB SCH ×4 (01:50→20:00)
[2017-01-24] MEDS: ALBUTEROL FS 2.5 MG/0.5 ML VIAL.NEB NEB SCH ×4 (01:51→20:00)
[2017-01-24 04:00] VITALS: BP 132/81
[2017-01-24] MEDS: BLOOD SUGAR DIAGNOSTIC 1 EACH STRIP IN SCH ×5 (05:01→23:11)
[2017-01-24] MEDS: GABAPENTIN 100 MG CAPSULE GT SCH ×3 (05:02→21:28)
[2017-01-24] MEDS: DIVALPROEX SODIUM 125 MG CAP.SPRINK GT SCH ×3 (05:02→21:28)
--- NOTE | 2017-01-24 06:14 | NUR ---
RN ONCOLOGY CLOSING NOTES PT IS IN BED RESTING, NO SIGNS OF SOB OR DISTRESS. ON MECHANICAL VENT TOLERATING WELL. G-TUBE IS INTACT WITH FEEDING RUNNING AT 65 CC/HR. IV ACCESS IS INTACT AND PATENT WITH NS RUNNING AT 40 ML/HR. 1:1 SITTER IN THE ROOM. WILL ENDORSE TO DAY SHIFT
--- NOTE | 2017-01-24 07:30 | NUR ---
MAINTENANCE CRAFTSMAN NOTES PATIENT ALERT AND ORIENTED, APPEARS TO BE RESTLESS, SITTER AT BEDSIDE, NO S/SX OF DISTRESS NOTED, NO SOB NOR COMPLAINT OF PAIN AT THIS TIME, PIV PATENT AND INTACT, IVF INFUSING AND TOLERATING WELL, GTF FEEDING ONGOING, PLACEMENT VERIFIED, NO RESIDUAL NOTED, CALL LIGHT WITHIN REACH, SAFETY MEASURES IN PLACED, HOB ELEVATED AT ALL TIMES, TURNED AND REPOSITION FOR COMFORT, WILL CONTINUE TO MONITOR.
[2017-01-24] MEDS: ASPIRIN 81 MG TAB.CHEW GT SCH (08:27)
[2017-01-24] MEDS: FUROSEMIDE 20 MG TABLET GT SCH ×2 (08:27→21:28)
[2017-01-24] MEDS: PROSOURCE / PROSTAT (PYXIS) 30 ML UDC GT SCH ×2 (08:27→17:02)
[2017-01-24] MEDS: LEVETIRACETAM SOL (5 ML) 100 MG/ML UDC GT SCH ×2 (08:27→21:27)
[2017-01-24] MEDS: OLANZAPINE 5 MG TABLET GT SCH ×2 (08:27→21:28)
[2017-01-24] MEDS: PANTOPRAZOLE 40 MG/PACK PACK GT SCH ×2 (08:28→17:02)
[2017-01-24] MEDS: FOLIC ACID 1 MG TABLET GT SCH (08:28)
[2017-01-24] MEDS: ACETAMINOPHEN 325 MG TABLET PO PRN (08:28)
[2017-01-24] MEDS: ISOSORBIDE DINITRATE (10MG) 10 MG TABLET GT SCH ×2 (08:29→21:29)
[2017-01-24] MEDS: Z GUARD REMEDY 2 OZ OINT TP SCH ×2 (08:29→21:30)
--- NOTE | 2017-01-24 08:40 | NUR ---
FILLER FEEDER NOTES PATIENT APPEARS TO BE TEARY EYED, DENIES ANY SUICIDAL IDEATION AT THIS TIME, ACTIVELY LISTENED, COMFORTED PATIENT, ENCOURAGED PATIENT TO REST, COMPLAINED OF ABDOMINAL PAIN, ALL DUE MEDICATIONS PROVIDED, WILL CONTINUE TO MONITOR.
[2017-01-24] MEDS: QUETIAPINE FUMARATE 25 MG TABLET GT SCH ×2 (08:42→17:02)
[2017-01-24] MEDS: INSULIN NPH, HUMAN ISOPHANE 100 UNIT/ML VIAL SQ SCH ×2 (08:45→21:47)
[2017-01-24] MEDS: INSULIN NPH/REG 70/30 MIX INJ 100 UNIT/ML CARTRIDGE SQ SCH ×2 (08:45→17:22)
[2017-01-24] MEDS: ENOXAPARIN SODIUM 30 MG/0.3 ML DISP.SYRIN SQ SCH (09:16)
--- NOTE | 2017-01-24 09:30 | NUR ---
MACHINE ASSEMBLER SUPERVISOR NOTES PATIENT RESTING AT THIS TIME, APPEARS TO BE ASLEEP, BUT EASILY AROUSABLE, NO S/SX OF PAIN AT THIS TIME, REPOSITIONED PATIENT FOR SAFETY AND COMFORT, CALL LIGHT WITHIN REACH, WILL CONTINUE TO MONITOR.
[2017-01-24 12:00] VITALS: BP 119/76
[2017-01-24] MEDS: LORAZEPAM 1 MG TABLET GT PRN (12:14)
[2017-01-24] MEDS: ACIDOPHILUS/BULGARICUS 1 EACH TAB.CHEW PO SCH ×2 (12:15→17:02)
[2017-01-24 12:32] LABS: BASOPHILS % (AUTO) 0.3 % (0.0-2.0); EOSINOPHILS # (AUTO) 0.2 /CMM (0.0-0.7); EOSINOPHILS % (AUTO) 2.2 % (0.0-6.0); HEMATOCRIT 24 % (33-45); LYMPHOCYTES % (AUTO) 24.6 % (20.0-44.0); MEAN CORPUSCULAR HEMOGLOBIN 30 PG (26.0-33.0); MEAN CORPUSCULAR HGB CONC 34 g/dl (31.0-36.0); MEAN CORPUSCULAR VOLUME 88 fL (82-100); MONOCYTES # (AUTO) 0.6 /CMM (0.1-1.30); MONOCYTES % (AUTO) 6.7 % (2.0-12.0); NEUTROPHILS # (AUTO) 5.5 /CMM (1.8-8.9); NEUTROPHILS % (AUTO) 66.2 % (43.0-81.0); PLATELET COUNT (AUTO) 210 /CMM (150-450); RDW COEFFICIENT OF VARIATION 15.3 (11.5-15.0); WHITE BLOOD COUNT (AUTO) 8.3 K/uL (4.3-11.0)
[2017-01-24 12:40] LABS: CALCIUM, SERUM 8.4 mg/dL (8.5-10.1); POTASSIUM 3.2 mmol/L (3.5-5.1)
[2017-01-24] MEDS ORDERED: ACIDOPHILUS/BULGARICUS 1 EACH GRAN.PACK PO SCH (13:00)
--- NOTE | 2017-01-24 13:27 | NUR ---
LAST PICKER NOTES CLARIFIED WITH DR. DAWKINS RE: MICHAEL RIVERA, PER , ITS OK TO GIVE. Addendum: 01/24/17 at 1328 by AMPARO BRUNER RN CLARIFICATION TIME OF ENTRY: 09
[2017-01-24] MEDS: POTASSIUM CHLORIDE 20 MEQ POWDER PACKET NG SCH ×2 (13:40→14:50)
[2017-01-24] MEDS: QUETIAPINE FUMARATE 25 MG TABLET PO PRN (14:51)
[2017-01-24] MEDS: IV NS 0.9% 1,000 ML IV PRN (17:10)
--- NOTE | 2017-01-24 19:00 | NUR ---
MS RN NOTES RECEIVE PT RESTING IN BED, A/OX 1. NO S/S OF DISTRESS OR SOB. SAFETY MEASURES IN PLACE, ON ISOLATION, ON LOW BED TO ENSURE SAFETY. CALL LIGHT WITHIN REACH. WILL CONTINUE TO MONITOR.
--- NOTE | 2017-01-24 19:04 | NUR ---
CORPSMAN NOTES PATIENT ALERT AND ORIENTED X1, ABLE TO MOUTH WORDS, NO S/SX OF RESPIRATORY DISTRESS, DENIES PAIN OR DISCOMFORT AT THIS TIME, SITTER AT BEDSIDE TO ENSURE SAFETY, ISOLATION PRECAUTION OBSERVED, PIV PATENT AND FLUSHES WELL, ON IVF NS AT 40CC/HR, GTF OFF AT THIS TIME, ALL DUE MEDICATIONS GIVEN ORDERED, PATIENT HAD 2 LOOSE BM THIS SHIFT, ADL CARE RENDERED, TURNED AND REPOSITIONED, OFFLOADED, ALL NEEDS ATTENDED, CALL LIGHT WITHIN REACH, WILL ENDORSE TO RN PEDIATRIC ICU FOR SANJEEV.
[2017-01-24 20:00] VITALS: BP 138/92
--- NOTE | 2017-01-24 20:00 | NUR ---
PT RCVD ON [facility] VENT WITH NOTED SETTINGS . VENT ALARM WORKING AND AUDIBLE, VENT PLUGGED INTO RED OUTLET. TRACH SECURE IN AND IN PROPER POSITION. CUFF CHECKED EXERCISER. SXN SMALL AMOUNT OF WHITE THIN SECRETIONS . NO RESPIRATORY DISTRESS AT THIS TIME .BREATHING TX'S GIVEN ORDERED, NO ADVERSE REACTION NOTED. AMBU BAG AT [facility], WILL CONTINUE THE PT.
[2017-01-24 20:48] VITALS: BP 138/92
[2017-01-24] MEDS: GLYTROL 1,000 ML BAG GT PRN (21:27)
[2017-01-24] MEDS: QUETIAPINE FUMARATE 100 MG TABLET PO SCH (21:28)
[2017-01-24] MEDS: clonazePAM 0.5 MG TABLET GT SCH (21:28)
[2017-01-24] MEDS: ATORVASTATIN 10 MG TABLET GT SCH (21:33)
[2017-01-25] VITALS: BP 129/60
[2017-01-25] MEDS: CIPROFLOXACIN HCL 0.3% 5 ML BOTTLE EACHEYE SCH ×7 (01:20→23:46)
[2017-01-25] MEDS: ALBUTEROL FS 2.5 MG/0.5 ML VIAL.NEB NEB SCH ×4 (01:23→19:38)
[2017-01-25] MEDS: IPRATROPIUM NEB FS 0.5 MG/2.5 ML AMPUL.NEB NEB SCH ×4 (01:23→19:38)
[2017-01-25 04:00] VITALS: BP 123/53
[2017-01-25] MEDS: GABAPENTIN 100 MG CAPSULE GT SCH ×3 (05:13→20:47)
[2017-01-25] MEDS: DIVALPROEX SODIUM 125 MG CAP.SPRINK GT SCH ×3 (05:13→20:47)
[2017-01-25] MEDS: VANCOMYCIN HCL 125 MG/2.5 ML ORAL.SUSP PO SCH ×4 (05:17→23:46)
[2017-01-25] MEDS: BLOOD SUGAR DIAGNOSTIC 1 EACH STRIP IN SCH ×4 (05:17→23:46)
--- NOTE | 2017-01-25 06:42 | NUR ---
MS RN CLOSING NOTES PATIENT COMFORTABLY ASLEEP AND EASILY AWAKEN, HEAD OF BED ELEVATED, GLYTROL RUNNING AT 65 CC/HR INFUSING AND TOLERATED WELL.NO S/S OF HYPO/HYPERGLYCEMIA. MECH VENT SETTING ORDERED RAC 20 PATENT AND INTACT WITH NO S/S OF INFILTRATION NOTED. NS 40 CC/HR. APPEARS NOT IN DISTRESS. RESPIRATIONS EVEN AND UNLABORED, FREQUENT VISUAL CHECK DONE FOR SAFETY EVERY 2 HOURS. PATIENT WAS REPOSITIONED EVERY 2 HOURS FOR SKIN MGT. NURSING CARE RENDERED, NEEDS ATTENDED AND ANTICIPATED, KEPT CLEAN AND DRY AND COMFORTABLE, GOOD SKIN CARE PROVIDED. OFFLOAD AT ALL TIMES. SAFE HAZARD FREE ENVIRONMENT PROVIDED. CALL LIGHT WITHIN EASY TO REACH, ON LOW BED AT ALL TIMES TO ENSURE SAFETY, WILL ENDORSE TO THE NEXT SHIFT CONTINUE PLAN OF CARE
--- NOTE | 2017-01-25 07:42 | NUR ---
RN NOTES RECEIVED PT. PT IS STABLE AND IN BED RESTING. A/OX1. NO S/S OF DISTRESS OR SOB. NO APPARENT SIGNS OF PAIN AT THIS MOMENT. PT IS VENT DEPENDENT, VENT SETTINGS IN PLACE. PT IS ON A TELE MONITOR, CURRENTLY READING SR AT 70BPM. IV ACCESS LOCATED ON RIGHT AC 20G RUNNING NS AT 40 ML/HR. PT IS ON A G TUBE FEEDING OF GLYTROL AT 65 ML/HR. SAFETY MEASURES IN PLACE, CALL LIGHT WITHIN REACH. WILL CONTINUE TO MONITOR.
[2017-01-25 07:46] LABS: BASOPHILS % (AUTO) 0.3 % (0.0-2.0); EOSINOPHILS # (AUTO) 0.1 /CMM (0.0-0.7); EOSINOPHILS % (AUTO) 1.8 % (0.0-6.0); HEMATOCRIT 23 % (33-45); HEMOGLOBIN 7.9 g/dL (11.5-14.8); LYMPHOCYTES # (AUTO) 1.5 /CMM (0.8-4.8); LYMPHOCYTES % (AUTO) 19.2 % (20.0-44.0); MEAN CORPUSCULAR HEMOGLOBIN 30 PG (26.0-33.0); MEAN CORPUSCULAR HGB CONC 34 g/dl (31.0-36.0); MEAN CORPUSCULAR VOLUME 87 fL (82-100); MONOCYTES # (AUTO) 0.5 /CMM (0.1-1.30); MONOCYTES % (AUTO) 5.8 % (2.0-12.0); NEUTROPHILS # (AUTO) 5.8 /CMM (1.8-8.9); NEUTROPHILS % (AUTO) 72.9 % (43.0-81.0); PLATELET COUNT (AUTO) 232 /CMM (150-450); RDW COEFFICIENT OF VARIATION 15.1 (11.5-15.0); RED BLOOD CELL COUNT(AUTO) 2.69 MIL/uL (4.0-5.2)
[2017-01-25] MEDS: ASPIRIN 81 MG TAB.CHEW GT SCH (08:13)
[2017-01-25] MEDS: FOLIC ACID 1 MG TABLET GT SCH (08:13)
[2017-01-25] MEDS: PANTOPRAZOLE 40 MG/PACK PACK GT SCH ×2 (08:14→17:15)
[2017-01-25] MEDS: OLANZAPINE 5 MG TABLET GT SCH ×2 (08:14→20:47)
[2017-01-25] MEDS: QUETIAPINE FUMARATE 25 MG TABLET GT SCH ×2 (08:14→17:15)
[2017-01-25] MEDS: LEVETIRACETAM SOL (5 ML) 100 MG/ML UDC GT SCH ×2 (08:15→20:47)
[2017-01-25] MEDS: FUROSEMIDE 20 MG TABLET GT SCH ×2 (08:15→20:48)
[2017-01-25] MEDS: ACIDOPHILUS/BULGARICUS 1 EACH TAB.CHEW PO SCH ×3 (08:15→17:15)
[2017-01-25] MEDS: PROSOURCE / PROSTAT (PYXIS) 30 ML UDC GT SCH ×2 (08:16→17:15)
[2017-01-25] MEDS: ENOXAPARIN SODIUM 30 MG/0.3 ML DISP.SYRIN SQ SCH (08:20)
[2017-01-25] MEDS: INSULIN NPH, HUMAN ISOPHANE 100 UNIT/ML VIAL SQ SCH ×2 (08:21→20:57)
[2017-01-25] MEDS: INSULIN NPH/REG 70/30 MIX INJ 100 UNIT/ML CARTRIDGE SQ SCH ×2 (08:21→17:50)
[2017-01-25 08:24] LABS: CALCIUM, SERUM 8.7 mg/dL (8.5-10.1); CREATININE 0.8 mg/dL (0.6-1.3); MAGNESIUM 1.5 mg/dL (1.8-2.4); POTASSIUM 4.2 mmol/L (3.5-5.1)
[2017-01-25] MEDS: ISOSORBIDE DINITRATE (10MG) 10 MG TABLET GT SCH ×2 (09:00→20:52)
[2017-01-25] MEDS: Z GUARD REMEDY 2 OZ OINT TP SCH ×2 (09:15→20:58)
--- NOTE | 2017-01-25 09:49 | NUR ---
RN NOTES SPOKE TO DAUGHTER REGARDING CASE MANAGEMENT DISCHARGE PLACEMENT. WILL FOLLOW UP WITH ER MEDICAL TECHNICIAN.
[2017-01-25] MEDS: Magnesium 1GM/D5W 100ML PREMIX 100 ML IV SCH ×2 (11:12→12:38)
--- NOTE | 2017-01-25 12:28 | NUR ---
RN NOTES RIGHT AC IV ACCESS REMOVED BY PT. NEW IV ACCESS INSERTED INTO RIGHT HAND FINGER, 22G.
[2017-01-25] MEDS: LORAZEPAM 1 MG TABLET GT PRN (13:22)
[2017-01-25] MEDS: HYDROCODONE/APAP 5/325MG 1 EACH TABLET PO PRN (13:22)
--- NOTE | 2017-01-25 13:59 | NUR ---
RN NOTES PT IS IN BED, STABLE. NO S/S OF DISTRESS OR SOB. SITTER IS AT BEDSIDE 1:1. PT GIVEN ATIVAN FOR ANXIETY AND HYDROCODONE FOR PAIN. WILL CONTINUE TO MONITOR.
[2017-01-25] MEDS: GLYTROL 1,000 ML BAG GT PRN (17:20)
[2017-01-25] MEDS: IV NS 0.9% 1,000 ML IV PRN (17:56)
--- NOTE | 2017-01-25 18:37 | NUR ---
RN CLOSING NOTES PT IN BED RESTING. NO S/S OF DISTRESS OR SOB. NO SIGNS OF APPARENT PAIN. 1:1 SITTER IS AT THE BEDSIDE. ALL PT NEEDS ANTICIPATED AND MET. SAFETY MEASURES IN PLACE, CALL LIGHT WITHIN REACH. WILL ENDORSE TO THE TALENT BUYER FOR SANJEEV.
--- NOTE | 2017-01-25 19:30 | NUR ---
MS RN NOTES PATIENT COMFORTABLY ASLEEP AND EASILY AWAKEN, HEAD OF BED ELEVATED, GTUBE FEEDING RUNNING ORDERED. NO S/S OF HYPO/HYPERGLYCEMIA. MECH VENT SETTING ORDERED RAC 20 PATENT AND INTACT WITH NO S/S OF INFILTRATION NOTED. NS 40 CC/HR. APPEARS NOT IN DISTRESS. RESPIRATIONS EVEN AND UNLABORED, CALL LIGHT WITHIN EASY TO REACH, ON LOW BED AT ALL TIMES TO ENSURE SAFETY, WILL CONTINUE TO MONITOR.
--- NOTE | 2017-01-25 19:38 | NUR ---
PT RCVD ON [facility] VENT WITH NOTED SETTINGS . VENT ALARM WORKING AND AUDIBLE, VENT PLUGGED INTO RED OUTLET. TRACH SECURE IN AND IN PROPER POSITION. CUFF CHECKED CHECKER [employer]. SXN SMALL AMOUNT OF PALE YELLOW SECRETIONS . NO RESPIRATORY DISTRESS AT THIS TIME .BREATHING TX'S GIVEN ORDERED, NO ADVERSE REACTION NOTED. AMBU BAG AT [facility], WILL CONTINUE THE PT. Addendum: 01/26/17 at 0539 by SUSANNE FISHER RT WILL CONTINUE TO MONITOR THE PT.
[2017-01-25 20:00] VITALS: BP 94/46
[2017-01-25] MEDS: ATORVASTATIN 10 MG TABLET GT SCH (20:47)
[2017-01-25] MEDS: clonazePAM 0.5 MG TABLET GT SCH (20:47)
[2017-01-25] MEDS: QUETIAPINE FUMARATE 100 MG TABLET PO SCH (20:49)
[2017-01-26] MEDS: ALBUTEROL FS 2.5 MG/0.5 ML VIAL.NEB NEB SCH ×4 (02:03→19:40)
[2017-01-26] MEDS: IPRATROPIUM NEB FS 0.5 MG/2.5 ML AMPUL.NEB NEB SCH ×4 (02:03→19:40)
[2017-01-26] MEDS: GABAPENTIN 100 MG CAPSULE GT SCH ×3 (04:31→21:54)
[2017-01-26] MEDS: DIVALPROEX SODIUM 125 MG CAP.SPRINK GT SCH ×3 (04:31→21:54)
[2017-01-26] MEDS: CIPROFLOXACIN HCL 0.3% 5 ML BOTTLE EACHEYE SCH ×5 (04:33→21:55)
[2017-01-26] MEDS: VANCOMYCIN HCL 125 MG/2.5 ML ORAL.SUSP PO SCH ×4 (05:17→23:25)
[2017-01-26] MEDS: BLOOD SUGAR DIAGNOSTIC 1 EACH STRIP IN SCH ×4 (05:18→23:02)
--- NOTE | 2017-01-26 06:33 | NUR ---
RN CLOSING NOTES PT IN BED RESTING. NO S/S OF DISTRESS OR SOB. NO SIGNS OF APPARENT PAIN. 1:1 SITTER IS AT THE BEDSIDE. ALL PT NEEDS ANTICIPATED AND MET. SAFETY MEASURES IN PLACE, CALL LIGHT WITHIN REACH. WILL ENDORSE TO THE DAY SHIFT FOR SANJEEV.
--- NOTE | 2017-01-26 07:54 | NUR ---
MS/RN OPENING NOTE PATIENT RECEIVED IN BED IN STABLE CONDITION. ALERT AND ORIENTED TIMES 1. SITTER AT BEDSIDE. NO SIGNS OF ACUTE DISTRESS. NO COMPLAIN OF PAIN OR DISCOMFORT. ALL NEEDS ATTENDED TO. CALL LIGHT WITHIN REACH. WILL CONTINUE TO MONITOR TO ENSURE SAFETY.
[2017-01-26] MEDS: Z GUARD REMEDY 2 OZ OINT TP SCH ×2 (09:01→21:55)
[2017-01-26] MEDS: ISOSORBIDE DINITRATE (10MG) 10 MG TABLET GT SCH ×2 (09:02→21:54)
[2017-01-26] MEDS: PROSOURCE / PROSTAT (PYXIS) 30 ML UDC GT SCH ×2 (09:02→17:22)
[2017-01-26] MEDS: PANTOPRAZOLE 40 MG/PACK PACK GT SCH ×2 (09:02→17:23)
[2017-01-26] MEDS: QUETIAPINE FUMARATE 25 MG TABLET GT SCH ×2 (09:03→17:23)
[2017-01-26] MEDS: ACIDOPHILUS/BULGARICUS 1 EACH TAB.CHEW PO SCH ×3 (09:03→17:23)
[2017-01-26] MEDS: FOLIC ACID 1 MG TABLET GT SCH (09:03)
[2017-01-26] MEDS: LEVETIRACETAM SOL (5 ML) 100 MG/ML UDC GT SCH ×2 (09:03→21:53)
[2017-01-26] MEDS: OLANZAPINE 5 MG TABLET GT SCH ×2 (09:03→21:54)
[2017-01-26] MEDS: ASPIRIN 81 MG TAB.CHEW GT SCH (09:03)
[2017-01-26] MEDS: FUROSEMIDE 20 MG TABLET GT SCH ×2 (09:03→21:54)
[2017-01-26] MEDS: ENOXAPARIN SODIUM 30 MG/0.3 ML DISP.SYRIN SQ SCH (09:04)
[2017-01-26] MEDS: INSULIN NPH/REG 70/30 MIX INJ 100 UNIT/ML CARTRIDGE SQ SCH ×2 (09:05→17:00)
[2017-01-26] MEDS: INSULIN NPH, HUMAN ISOPHANE 100 UNIT/ML VIAL SQ SCH ×2 (09:06→22:13)
--- NOTE | 2017-01-26 10:15 | NUR ---
MS/RN SEEN BY DR ZHANG PATIENT SEEN BY DR ZHANG WITH NO NEW ORDERS.
[2017-01-26] MEDS ORDERED: ONDANSETRON HCL/PF 4 MG/2 ML VIAL ONE (11:43)
[2017-01-26] MEDS ORDERED: MORPHINE SULFATE INJ 4 MG/ML DISP.SYRIN ONE (11:44)
[2017-01-26] MEDS ORDERED: FAMOTIDINE/PF INJ 20 MG/2 ML VIAL IV ONE (11:44)
--- NOTE | 2017-01-26 16:22 | NUR ---
MS/RN DR ZHANG PATIENT NOTED WITH RIGHT FINGER IV SALINE LOCK PULLED OUT. DR ZHANG AWARE WITH ORDERS TO INSERT MIDLINE.
--- NOTE | 2017-01-26 18:02 | NUR ---
MS/RN LOW BLOOD SUGAR PATIENT NOTED WITH BLOOD SUGAR OF 63. D5 UNABLE TO BE GIVEN SINCE PATIENT HAVE NO IV ACCESS. AWAITING FOR MIDLINE PLACEMENT. ORANGE JUICE WITH SUGAR GIVEN VIA GT. AFTER ORANGE JUICE BS NOTED 104. PER ORDERED G TUBE TO BE SWITCHED OFF AT [address], [address] ZHANG TO CONTINUE G TUBE FEEDING SECONDARY TO PATIENT HAVE NO IV ACCESS TO MAINTAIN NORMAL BLOOD SUGAR LEVEL.
--- NOTE | 2017-01-26 18:26 | NUR ---
MS/RN CLOSING NOTE PATIENT IN BED IN STABLE CONDITION. ALERT TIMES 1, MARSHALLESE SPEAKING. SITTER AT BEDSIDE. NO SIGNS OF ACUTE DISTRESS. NO COMPLAIN OF PAIN OR DISCOMFORT. TRACH AND VENT DEPENDENT TOLERATING WELL. ALL NEEDS ATTENDED TO. CALL LIGHT WITHIN REACH. WILL ENDORSE TO NEXT SHIFT FOR CONTINUITY OF CARE.
--- NOTE | 2017-01-26 19:45 | NUR ---
CLIENT SUPPORT ANALYST NOTE: PATIENT RESTING IN BED, NO ACUTE DISTRESS NOTED, FAMILY AT BEDSIDE. BREATHING EVEN AND UNLABORED, NO SOB NOTED. VENT SETTINGS IN PLACE. TELE READING SR 90. G-TUBE IN PLACE, WITH 5ML OF RESIDUAL, INFUSING GLYTROL AT 65 ML/HR. HOB ELEVATED. PATIENT PULLED OUT IV DURING DAY SHIFT, WAITING FOR MIDLINE PLACEMENT. ISOLATION PRECAUTIONS OBSERVED. BED LOCKED AND IN LOWEST POSITION, CALL LIGHT IN REACH. CONTINUE TO MONITOR.
[2017-01-26 20:00] VITALS: BP 121/63
--- NOTE | 2017-01-26 21:00 | NUR ---
FULFILLMENT MAIL CLERK NOTE: MIDLINE NURSE ON FLOOR. MIDLINE INSERTED TO RIGHT UPPER ARM #18G WITHOUT COMPLICATIONS. IV FLUIDS CONNECTED. WILL CONTINUE TO MONITOR.
[2017-01-26] MEDS: clonazePAM 0.5 MG TABLET GT SCH (21:53)
[2017-01-26] MEDS: ATORVASTATIN 10 MG TABLET GT SCH (21:53)
[2017-01-26] MEDS: IV NS 0.9% 1,000 ML IV PRN (21:53)
[2017-01-26] MEDS: QUETIAPINE FUMARATE 100 MG TABLET PO SCH (21:54)
--- NOTE | 2017-01-26 22:15 | NUR ---
TELEVISION INSTALLER HELPER NOTE: PATIENT BLOOD SUGAR LEVEL 162 MG/DL, PATIENT TO RECEIVE 34 UNITS OF NOVOLIN N PER MD ORDER. NO S/S OF HYPER/HYPOGLYCEMIA NOTED. PATIENT ON G-TUBE FEEDING. WILL CONTINUE TO MONITOR.
[2017-01-26 22:30] VITALS: BP 121/63
[2017-01-26] MEDS: GLYTROL 1,000 ML BAG GT PRN (23:25)
[2017-01-27] VITALS (9 sets, daily range): BP systolic 65–113; BP diastolic 24–58
[2017-01-27] MEDS: CIPROFLOXACIN HCL 0.3% 5 ML BOTTLE EACHEYE SCH ×6 (00:23→22:23)
[2017-01-27] MEDS: ALBUTEROL FS 2.5 MG/0.5 ML VIAL.NEB NEB SCH ×4 (00:56→20:03)
[2017-01-27] MEDS: IPRATROPIUM NEB FS 0.5 MG/2.5 ML AMPUL.NEB NEB SCH ×4 (00:56→20:03)
[2017-01-27] MEDS: BLOOD SUGAR DIAGNOSTIC 1 EACH STRIP IN SCH ×3 (05:54→18:16)
[2017-01-27] MEDS: GABAPENTIN 100 MG CAPSULE GT SCH ×3 (05:54→21:52)
[2017-01-27] MEDS: DIVALPROEX SODIUM 125 MG CAP.SPRINK GT SCH ×3 (05:54→21:51)
[2017-01-27] MEDS: VANCOMYCIN HCL 125 MG/2.5 ML ORAL.SUSP PO SCH ×3 (05:55→18:16)
--- NOTE | 2017-01-27 05:55 | NUR ---
FUSE CUTTER NOTE: ALL MORNING MEDICATIONS ADMINISTERED ORDERED. SIGNED PAPER MAR AND FILED IN CHART SINCE SYSTEM DOWN. WILL CONTINUE TO MONITOR.
--- NOTE | 2017-01-27 06:20 | NUR ---
SHANK CEMENTER HAND NOTE: PATIENT RESTING IN BED, NO ACUTE DISTRESS NOTED. BREATHING EVEN AND UNLABORED, NO SOB NOTED. VENT SETTINGS IN PLACE. TELE READING SR 88. G-TUBE IN PLACE, INFUSING GLYTROL AT 65 ML/HR. HOB ELEVATED. MIDLINE TO JENELLE #18G IN PLACE, INFUSING NS AT 40ML/HR. ISOLATION PRECAUTIONS OBSERVED. BED LOCKED AND IN LOWEST POSITION, CALL LIGHT IN REACH. WILL ENDORSE TO DAY NURSE TO CONTINUE WITH PLAN OF CARE.
--- NOTE | 2017-01-27 07:15 | NUR ---
RN PSYCHIATRIC NOTE: PATIENT STILL WITH SMALL AMOUNT OF DIARRHEA. PATIENT BLOOD SUGAR LEVEL 290 MG/DL, NO S/S OF HYPERGLYCEMIA NOTED. WITH INSULIN PER MD ORDER.
--- NOTE | 2017-01-27 07:44 | NUR ---
RN NOTES RECEIVED PT. PT IS IN BED RESTING. A/OX1, PT IS NON VERBAL BUT UNDERSTANDS KINYARWANDA. NO S/S OF DISTRESS OR SOB. NO APPARENT SIGNS OF PAIN AT THIS TIME. PT IS VENT DEPENDENT, VENT SETTINGS IN PLACE. IV ACCESS LOCATED ON JENELLE, MIDLINE RUNNING NS AT 40 ML/HR. PT D/C IS PENDING PLACEMENT BY CASE MANAGEMENT, WILL F/U. SITTER IS AT BEDSIDE. SAFETY MEASURES IN PLACE, CALL LIGHT WITHIN REACH. WILL CONTINUE TO MONITOR.
[2017-01-27 07:56] LABS: BASOPHILS % (AUTO) 0.3 % (0.0-2.0); EOSINOPHILS # (AUTO) 0.1 /CMM (0.0-0.7); EOSINOPHILS % (AUTO) 1.7 % (0.0-6.0); HEMATOCRIT 25 % (33-45); HEMOGLOBIN 8.1 g/dL (11.5-14.8); LYMPHOCYTES # (AUTO) 1.6 /CMM (0.8-4.8); LYMPHOCYTES % (AUTO) 19.2 % (20.0-44.0); MEAN CORPUSCULAR HEMOGLOBIN 30 PG (26.0-33.0); MEAN CORPUSCULAR HGB CONC 33 g/dl (31.0-36.0); MEAN CORPUSCULAR VOLUME 90 fL (82-100); MONOCYTES # (AUTO) 0.2 /CMM (0.1-1.30); MONOCYTES % (AUTO) 2.5 % (2.0-12.0); NEUTROPHILS # (AUTO) 6.4 /CMM (1.8-8.9); NEUTROPHILS % (AUTO) 76.3 % (43.0-81.0); PLATELET COUNT (AUTO) 335 /CMM (150-450); RED BLOOD CELL COUNT(AUTO) 2.74 MIL/uL (4.0-5.2); WHITE BLOOD COUNT (AUTO) 8.4 K/uL (4.3-11.0)
[2017-01-27] MEDS: ISOSORBIDE DINITRATE (10MG) 10 MG TABLET GT SCH ×2 (09:00→21:00)
[2017-01-27 09:01] LABS: CALCIUM, SERUM 8.9 mg/dL (8.5-10.1); CREATININE 0.9 mg/dL (0.6-1.3)
[2017-01-27] MEDS: FOLIC ACID 1 MG TABLET GT SCH (09:27)
[2017-01-27] MEDS: ASPIRIN 81 MG TAB.CHEW GT SCH (09:27)
[2017-01-27] MEDS: LEVETIRACETAM SOL (5 ML) 100 MG/ML UDC GT SCH ×2 (09:27→21:52)
[2017-01-27] MEDS: PANTOPRAZOLE 40 MG/PACK PACK GT SCH ×2 (09:27→17:00)
[2017-01-27] MEDS: ACIDOPHILUS/BULGARICUS 1 EACH TAB.CHEW PO SCH ×3 (09:28→17:00)
[2017-01-27] MEDS: QUETIAPINE FUMARATE 25 MG TABLET GT SCH ×2 (09:28→17:00)
[2017-01-27] MEDS: FUROSEMIDE 20 MG TABLET GT SCH ×2 (09:28→21:00)
[2017-01-27] MEDS: OLANZAPINE 5 MG TABLET GT SCH ×2 (09:28→21:52)
[2017-01-27] MEDS: INSULIN NPH/REG 70/30 MIX INJ 100 UNIT/ML CARTRIDGE SQ SCH ×2 (09:43→17:00)
[2017-01-27] MEDS: INSULIN NPH, HUMAN ISOPHANE 100 UNIT/ML VIAL SQ SCH ×2 (09:43→21:00)
[2017-01-27] MEDS: ENOXAPARIN SODIUM 30 MG/0.3 ML DISP.SYRIN SQ SCH (09:44)
[2017-01-27] MEDS: LORAZEPAM 1 MG TABLET GT PRN (09:51)
[2017-01-27] MEDS: Z GUARD REMEDY 2 OZ OINT TP SCH ×2 (09:59→22:23)
[2017-01-27] MEDS: PROSOURCE / PROSTAT (PYXIS) 30 ML UDC GT SCH ×2 (09:59→17:00)
--- NOTE | 2017-01-27 11:12 | NUR ---
RN NOTES AM BLOOD PRESSURE MEDICATION HELD DUE TO LOW BP OF 109/48.
--- NOTE | 2017-01-27 19:46 | NUR ---
RN CLOSING NOTES PT IS IN BED RESTING. NO S/S OF DISTRESS OR SOB. NO C/O PAIN AT THIS MOMENT. SITTER IS BEDSIDE. VENT SETTINGS IN PLACE. SAFETY MEASURES IN PLACE. CALL LIGHT WITHIN REACH. WILL ENDORSE TO LABORATORY SUPERVISOR FOR SANJEEV.
--- NOTE | 2017-01-27 20:00 | NUR ---
RN INITIAL NOTES: RECEIVED REPORT FROM NICOLA RN, PT IN BED, VENT TRACH DEPENDENT WITH THE FF SETTING AC 14 TV 500 FIO2 40% PEEP 5, SHILEY#8, PT IS ASLEEP, NO FACIAL GRIMACE NOTED, APPEARS COMFORTABLE, 1:1 SITTER AT BED SIDE, PT TRIES TO PULL OUT TRACHE AND GTUBE WHEN AWAKE, JENELLE MIDLINE IN PLACED WITH ONGOING IVF OF NS AT 40CC/HR, GTUBE IN PLACED, FEEDING WILL BE TURN ON AT 2100, BLE OFFLOADED, PT ON SR HR 78, SAFETY PRECAUTIONS FOR FALL INITIATED CALL LIGHT IN REACH, WILL CONTINUE TO MONITOR
--- NOTE | 2017-01-27 20:36 | NUR ---
RN NOTES: PT'S BP ON LOW 70, BP 70/30 63/50, INFORMED DR GALVAN, PER MD TO GIVE 1L BOLUS NS AND CHECK VS AFTER HALF AN HOUR POST BOLUS
[2017-01-27] MEDS ORDERED: IV NS 0.9% 1,000 ML IV PRN (21:00)
--- NOTE | 2017-01-27 21:00 | NUR ---
RN NOTES: TURNED ON TUBE FEEDING, PT RECEIVING GLYTROL ULTRAPAK AT 65ML/HR,
--- NOTE | 2017-01-27 21:30 | NUR ---
RN NOTES: PT HAS BLOOD TINGED STOOL, AND DISCHARGE, PT POSITIVE FOR STOOL OB
--- NOTE | 2017-01-27 21:40 | NUR ---
RN NOTES: CHECKED PT'S GTUBE PLACEMENT AND RESIDUAL, OBTAINED 0ML, DUE MEDS GIVEN VIA GTUBE, ABDOMEN IS SOFT TO TOUCH WITH ACTIVE BOWEL SOUND NOTED,
[2017-01-27] MEDS: QUETIAPINE FUMARATE 100 MG TABLET PO SCH (21:50)
--- NOTE | 2017-01-27 21:52 | NUR ---
RN NOTES: ISORDIL 10MG AND LASIX 20MG NOT ADMINISTERED AT THIS TIME, DUE TO PT'S LOW BP, FUROSEMIDE UNFORTUNATELY WAS OPENED BY ME AND WHEN I RECHECK THE BP OF THE PT IT WAS 94/58, FUROSEMIDE WAS WASTED WITH ANOTHER RN, AND ISORDIL WAS RETURNED IN THE [place].
[2017-01-27] MEDS: clonazePAM 0.5 MG TABLET GT SCH (21:53)
[2017-01-27] MEDS: ATORVASTATIN 10 MG TABLET GT SCH (21:53)
--- NOTE | 2017-01-27 22:15 | NUR ---
ACCUC CHECK: BLOOD SUGAR WAS CHECK AND REVEAL 97, ON GTUBE FEEDING GLYTROL AT 65ML/HR, NOVOLIN 34UNITS NOT ADMINISTERED AT THIS TIME, DUE TO RISK OF HYPOGLYCEMIA, WILL MONITOR PT FOR S/S OF HYPOGLYCEMIA
--- NOTE | 2017-01-27 22:27 | NUR ---
difficult placement, [facility] will not accept patient back. [facility] [phone] will coordinate transfer once sub-acute facility is secured. Addendum: 01/27/17 at 2227 by TERRI GIBSON RN Amended: Links added.
--- NOTE | 2017-01-27 22:37 | NUR ---
RN NOTES: TALKED TRO DR GALVAN REGARDING LATEST VS OF THE PT AFTER GIVING 1L NS BOLUS, 108/39 HR 74, 94/58 HR 77, AND 99/33 HR 76, DIASTOLIC ON LOW SIDE, PER MD, ITS OKAY, CONTINUE MONITORING THE PT, ALSO INFORMED MD THAT DUE TO THE PT'S BP I HOLD PT'S FUROSEMIDE/LASIX AND ISORDIL 10MG, MD STATED OKAY
[2017-01-28] VITALS: BP 111/30
[2017-01-28] MEDS: BLOOD SUGAR DIAGNOSTIC 1 EACH STRIP IN SCH ×5 (00:25→23:28)
[2017-01-28] MEDS: GLYTROL 1,000 ML BAG GT PRN ×2 (00:26→21:30)
[2017-01-28] MEDS: VANCOMYCIN HCL 125 MG/2.5 ML ORAL.SUSP PO SCH ×5 (00:26→23:28)
[2017-01-28] MEDS: IV NS 0.9% 1,000 ML IV PRN (00:28)
--- NOTE | 2017-01-28 00:29 | NUR ---
ACCU CHECK: BLOOD SUGAR CHECK AND REVEAL 124, NO INSULIN COVERAGE PER MD
[2017-01-28] MEDS ORDERED: Z GUARD REMEDY 4 OZ OINT TP ONE (00:39)
[2017-01-28] MEDS: IPRATROPIUM NEB FS 0.5 MG/2.5 ML AMPUL.NEB NEB SCH ×4 (00:51→19:16)
[2017-01-28] MEDS: ALBUTEROL FS 2.5 MG/0.5 ML VIAL.NEB NEB SCH ×4 (00:51→19:16)
[2017-01-28] MEDS: CIPROFLOXACIN HCL 0.3% 5 ML BOTTLE EACHEYE SCH ×6 (00:56→21:30)
[2017-01-28 04:00] VITALS: BP 95/60
[2017-01-28] MEDS: DIVALPROEX SODIUM 125 MG CAP.SPRINK GT SCH ×3 (05:02→21:31)
[2017-01-28] MEDS: GABAPENTIN 100 MG CAPSULE GT SCH ×3 (05:02→21:32)
--- NOTE | 2017-01-28 05:11 | NUR ---
ACCU CHECK: BLOOD SUGAR WAS CHECKED AT THIS TIME AND REVEAL 165, NO INSULIN COVERAGE PER MD, WILL CONTINUE TO MONITOR
[2017-01-28 06:42] LABS: BASOPHILS % (AUTO) 0.4 % (0.0-2.0); EOSINOPHILS # (AUTO) 0.2 /CMM (0.0-0.7); EOSINOPHILS % (AUTO) 1.8 % (0.0-6.0); HEMATOCRIT 23 % (33-45); HEMOGLOBIN 7.9 g/dL (11.5-14.8); LYMPHOCYTES # (AUTO) 2.5 /CMM (0.8-4.8); LYMPHOCYTES % (AUTO) 27.9 % (20.0-44.0); MEAN CORPUSCULAR HEMOGLOBIN 30 PG (26.0-33.0); MEAN CORPUSCULAR HGB CONC 34 g/dl (31.0-36.0); MEAN CORPUSCULAR VOLUME 89 fL (82-100); MONOCYTES # (AUTO) 0.5 /CMM (0.1-1.30); MONOCYTES % (AUTO) 5.8 % (2.0-12.0); NEUTROPHILS # (AUTO) 5.7 /CMM (1.8-8.9); NEUTROPHILS % (AUTO) 64.1 % (43.0-81.0); PLATELET COUNT (AUTO) 272 /CMM (150-450); RDW COEFFICIENT OF VARIATION 16.4 (11.5-15.0); RED BLOOD CELL COUNT(AUTO) 2.63 MIL/uL (4.0-5.2); WHITE BLOOD COUNT (AUTO) 8.9 K/uL (4.3-11.0)
--- NOTE | 2017-01-28 06:47 | NUR ---
RN CLOSING NOTES: PT IN BED, AWAKE, TOLERATED MECH VENT SETTING WELL, AMBU BAG AT BED SIDE, CLINICAL ALARMS REMAIN AUDIBLE, ON SR HR 80, SITTER AT BED SIDE, JENELLE MIDLINE REMAINS PATENT AND FLUSHING WELL, INFUSING WITH NS AT 40CC/HR, G-TUBE FEEDING REMAINS INFUSING WITH GLYTROL ULTRAPAK AT 65ML/HR. BLE KEPT OFFLOADED. VS REMAINS STABLE, NEEDS ATTENDED. VS REMAINS STABLE, NEEDS ATTENDED, SAFETY [id number] FOR FALL REMAINS ENGAGED, CALL LIGHT IN REACH, WILL ENDORSE TO DAY RN FOR SANJEEV.
--- NOTE | 2017-01-28 08:00 | NUR ---
SKI PATROL DIRECTOR NOTES PATIENT IN BED RESTING. SITTER AT BEDSIDE. VENT SETTINGS NOTED. G TUBE PATENT RUNNING GLYTROL AT 65ML/HR. RIGHT UPPER ARM MIDLINE INTACT AND PATENT. RUNNING NS AT 40ML/HR. NOTED WITH BLOOD PRESSURE OF 113/36. MD AWARE OF LOW BP. WILL CONTINUE TO MONITOR.
[2017-01-28] MEDS: ASPIRIN 81 MG TAB.CHEW GT SCH (08:28)
[2017-01-28] MEDS: LEVETIRACETAM SOL (5 ML) 100 MG/ML UDC GT SCH ×2 (08:28→21:32)
[2017-01-28 08:29] LABS: CALCIUM, SERUM 8.5 mg/dL (8.5-10.1); CREATININE 0.9 mg/dL (0.6-1.3); POTASSIUM 3.7 mmol/L (3.5-5.1)
[2017-01-28] MEDS: QUETIAPINE FUMARATE 25 MG TABLET GT SCH ×2 (08:29→17:44)
[2017-01-28] MEDS: OLANZAPINE 5 MG TABLET GT SCH ×2 (08:29→21:32)
[2017-01-28] MEDS: PANTOPRAZOLE 40 MG/PACK PACK GT SCH ×2 (08:29→17:44)
[2017-01-28] MEDS: FOLIC ACID 1 MG TABLET GT SCH (08:29)
[2017-01-28] MEDS: ACIDOPHILUS/BULGARICUS 1 EACH TAB.CHEW PO SCH ×3 (08:29→17:44)
[2017-01-28] MEDS: ENOXAPARIN SODIUM 30 MG/0.3 ML DISP.SYRIN SQ SCH (08:30)
[2017-01-28] MEDS: Z GUARD REMEDY 2 OZ OINT TP SCH ×2 (08:31→21:33)
[2017-01-28] MEDS: INSULIN NPH/REG 70/30 MIX INJ 100 UNIT/ML CARTRIDGE SQ SCH ×2 (08:47→18:50)
[2017-01-28] MEDS: INSULIN NPH, HUMAN ISOPHANE 100 UNIT/ML VIAL SQ SCH ×2 (08:48→21:46)
[2017-01-28] MEDS: FUROSEMIDE 20 MG TABLET GT SCH ×2 (09:00→21:32)
[2017-01-28] MEDS: ISOSORBIDE DINITRATE (10MG) 10 MG TABLET GT SCH ×2 (09:00→21:31)
[2017-01-28] MEDS: PROSOURCE / PROSTAT (PYXIS) 30 ML UDC GT SCH ×2 (09:08→17:44)
[2017-01-28 12:00] VITALS: BP 97/39
--- NOTE | 2017-01-28 12:00 | NUR ---
CARPENTRY FOREMAN NOTES PATIENT NOTES WITH BP OF 103/34 PULSE OF 63 MAY BUSBY NOTIFIED CONTINUE TO MONITOR.
[2017-01-28 16:00] VITALS: BP 108/35
--- NOTE | 2017-01-28 19:00 | NUR ---
DETONATOR ASSEMBLER NOTES PATIENT IN BED RESTING. VENT SETTINGS NOTED. ALL DUE MEDICATIONS ADMINISTERED. ALL NEEDS MET. PATIENT WITH SITTER MIDLINE INTACT PATENT ON RIGHT UPPER ARM. WILL ENDORSE CARE TO PM SHIFT.
--- NOTE | 2017-01-28 19:00 | NUR ---
MS RN NOTES RECEIVE PT RESTING IN BED, ON VENT ORDERED. A/OX 1. NO S/S OF DISTRESS OR SOB. SAFETY MEASURES IN PLACE, ON ISOLATION, ON LOW BED TO ENSURE SAFETY. CALL LIGHT WITHIN REACH. WILL CONTINUE TO MONITOR.
[2017-01-28 20:00] VITALS: BP 130/43
[2017-01-28] MEDS: QUETIAPINE FUMARATE 100 MG TABLET PO SCH (21:33)
[2017-01-28] MEDS: ATORVASTATIN 10 MG TABLET GT SCH (21:33)
[2017-01-28] MEDS: clonazePAM 0.5 MG TABLET GT SCH (21:33)
[2017-01-29] VITALS: BP 110/54
[2017-01-29] MEDS: IPRATROPIUM NEB FS 0.5 MG/2.5 ML AMPUL.NEB NEB SCH ×4 (01:16→19:56)
[2017-01-29] MEDS: ALBUTEROL FS 2.5 MG/0.5 ML VIAL.NEB NEB SCH ×4 (01:16→19:56)
[2017-01-29] MEDS: CIPROFLOXACIN HCL 0.3% 5 ML BOTTLE EACHEYE SCH ×6 (01:22→21:13)
[2017-01-29] MEDS: IV NS 0.9% 1,000 ML IV PRN ×2 (01:22→17:31)
[2017-01-29 04:00] VITALS: BP 108/49
[2017-01-29] MEDS: VANCOMYCIN HCL 125 MG/2.5 ML ORAL.SUSP PO SCH ×3 (05:12→18:08)
[2017-01-29] MEDS: BLOOD SUGAR DIAGNOSTIC 1 EACH STRIP IN SCH ×3 (05:14→18:21)
[2017-01-29] MEDS: DIVALPROEX SODIUM 125 MG CAP.SPRINK GT SCH ×3 (05:15→21:13)
[2017-01-29] MEDS: GABAPENTIN 100 MG CAPSULE GT SCH ×3 (05:16→21:14)
--- NOTE | 2017-01-29 06:36 | NUR ---
FELT PAD CUTTER CLOSING NOTES PATIENT COMFORTABLY ASLEEP AND EASILY AWAKEN, HOB ELEVATED AT ALL TIMES. NO RESPIRATORY DISTRESS AT THIS TIME. JENELLE MIDLINE INTACT WITH NO S/S OF INFILTRATION NOTED. TRACH SECURE IN AND PROPER POSITION. AMBU BAG AT [facility], ON [facility] VENT WITH NOTED SETTINGS, VENT PLUGGED INTO RED OUTLET. NS 40 CC/HR RUNNING. GLYTROL 65 CC/HR INFUSING ORDERED. FREQUENT VISUAL CHECK DONE FOR SAFETY EVERY 2 HOURS. PATIENT WAS REPOSITIONED EVERY 2 HOURS FOR SKIN MGT. 1:1 SITTER, NURSING CARE RENDERED, NEEDS ATTENDED AND ANTICIPATED, KEPT CLEAN AND DRY AND COMFORTABLE, GOOD SKIN CARE PROVIDED. OFFLOAD AT ALL TIMES. SAFE HAZARD FREE ENVIRONMENT PROVIDED. CALL LIGHT WITHIN EASY TO REACH, ON LOW BED AT ALL TIMES TO ENSURE SAFETY, WILL ENDORSE TO THE NEXT SHIFT CONTINUE PLAN OF CARE.
[2017-01-29 07:10] LABS: BASOPHILS % (AUTO) 0.2 % (0.0-2.0); EOSINOPHILS # (AUTO) 0.3 /CMM (0.0-0.7); EOSINOPHILS % (AUTO) 2.1 % (0.0-6.0); HEMATOCRIT 24 % (33-45); HEMOGLOBIN 8.1 g/dL (11.5-14.8); LYMPHOCYTES # (AUTO) 2.3 /CMM (0.8-4.8); LYMPHOCYTES % (AUTO) 18.4 % (20.0-44.0); MEAN CORPUSCULAR HEMOGLOBIN 30 PG (26.0-33.0); MEAN CORPUSCULAR HGB CONC 34 g/dl (31.0-36.0); MEAN CORPUSCULAR VOLUME 87 fL (82-100); MONOCYTES # (AUTO) 0.6 /CMM (0.1-1.30); MONOCYTES % (AUTO) 5.1 % (2.0-12.0); NEUTROPHILS # (AUTO) 9.2 /CMM (1.8-8.9); NEUTROPHILS % (AUTO) 74.2 % (43.0-81.0); PLATELET COUNT (AUTO) 351 /CMM (150-450); RDW COEFFICIENT OF VARIATION 15.2 (11.5-15.0); RED BLOOD CELL COUNT(AUTO) 2.72 MIL/uL (4.0-5.2); WHITE BLOOD COUNT (AUTO) 12.4 K/uL (4.3-11.0)
--- NOTE | 2017-01-29 07:20 | NUR ---
RN NOTES PATIENT ALERT AND ORIENTED X1. HOB ELEVATED. SITTER NEXT TO THE BED. GLYTROL 65 CC/HR. IV INTACT. NO INFILTRATION. NS RUNNING 40 CC/HR. TRACH SECURE IN PROPER PLACE. MORNING CARE PROVIDED. SKIN CLEAN AND DRY. BED IN LOW POSITION. SIDE RAILS X2. CALL LIGHT WITHIN REACH. CONTINUE TO MONITOR.
[2017-01-29 07:29] LABS: CALCIUM, SERUM 8.3 mg/dL (8.5-10.1); CREATININE 0.8 mg/dL (0.6-1.3); POTASSIUM 3.5 mmol/L (3.5-5.1)
[2017-01-29 08:00] VITALS: BP 126/27
--- NOTE | 2017-01-29 08:18 | NUR ---
wire steward notes Spoke to Dr. Guaman on site regarding patient blood pressure low and ordered to hold lasix and give bolus of NS 500ml x 1. All orders carried out and noted. Informed RN assigned and made aware. Will continue to monitor accordingly.
[2017-01-29] MEDS ORDERED: IV NS 0.9% 500 ML BAG IV ONE ×2 (08:30→13:00)
[2017-01-29] MEDS: QUETIAPINE FUMARATE 25 MG TABLET GT SCH ×2 (08:56→17:09)
[2017-01-29] MEDS: LEVETIRACETAM SOL (5 ML) 100 MG/ML UDC GT SCH ×2 (08:56→21:47)
[2017-01-29] MEDS: FOLIC ACID 1 MG TABLET GT SCH (08:57)
[2017-01-29] MEDS: ACIDOPHILUS/BULGARICUS 1 EACH TAB.CHEW PO SCH ×3 (08:57→17:10)
[2017-01-29] MEDS: ASPIRIN 81 MG TAB.CHEW GT SCH (08:57)
[2017-01-29] MEDS: OLANZAPINE 5 MG TABLET GT SCH ×2 (08:57→21:14)
[2017-01-29] MEDS: PANTOPRAZOLE 40 MG/PACK PACK GT SCH ×2 (08:57→17:05)
[2017-01-29] MEDS: INSULIN NPH, HUMAN ISOPHANE 100 UNIT/ML VIAL SQ SCH ×2 (08:59→21:49)
[2017-01-29] MEDS: ISOSORBIDE DINITRATE (10MG) 10 MG TABLET GT SCH ×2 (09:00→21:00)
[2017-01-29] MEDS: FUROSEMIDE 20 MG TABLET GT SCH ×2 (09:00→21:00)
[2017-01-29] MEDS: Z GUARD REMEDY 2 OZ OINT TP SCH ×2 (09:02→21:18)
[2017-01-29] MEDS: INSULIN NPH/REG 70/30 MIX INJ 100 UNIT/ML CARTRIDGE SQ SCH ×2 (09:03→17:25)
[2017-01-29] MEDS: ENOXAPARIN SODIUM 30 MG/0.3 ML DISP.SYRIN SQ SCH (09:04)
[2017-01-29] MEDS: GLYTROL 1,000 ML BAG GT PRN (09:05)
[2017-01-29] MEDS: PROSOURCE / PROSTAT (PYXIS) 30 ML UDC GT SCH ×2 (09:15→17:05)
--- NOTE | 2017-01-29 10:50 | NUR ---
GROUND SUPPORT AGENT NOTES PATIENT EXAMINED BY MAY BUSBY TOOL GRINDING TECHNICIAN. STATES PATIENT IS NOT RESPONDING, NOT OPENING EYES. UPON INSURANCE CLAIMS SPECIALIST PATIENT RESPONDED TO PAINFUL STIMULI, SELECTIVELY OPENS EYES. NOTED ABLE TO MOVE UPPER EXTREMITIES. PER TOOL GRINDING TECHNICIAN WILL ORDER EXAMS. CONTINUE TO MONITOR AT THIS TIME.
[2017-01-29 11:29] LABS: ABG BASE EXCESS 5.1 mmol/L; ABG OXYGEN SATURATION 97.8 % (92.0-98.5); ABG PCO2 40.5 mmHg (35.0-45.0); ABG PH 7.475 (7.350-7.450); ABG PO2 122.3 mmHg (75.0-100.0); AaDO2 116.3 mmHg; COHb 0.2 % (0.5-1.5); MetHb 0.8 % (0.0-1.5); O2Hb 96.8 % (94.0-97.0); PEEP,BG 5 cm H2O; SITE, ABG Right Radial; VT, ABG 500 mL
[2017-01-29 11:49] LABS: TROPONIN I < 0.017 ng/mL (0.00-0.056)
[2017-01-29 12:00] VITALS: BP 98/25
[2017-01-29 16:00] VITALS: BP 117/29
--- NOTE | 2017-01-29 19:12 | NUR ---
STENOCAPTIONER CLOSING NOTES PATIENT ALERT AND ORIENTED X1. HOB ELEVATED. NO C/O PAIN. OFFLOADING LOWER EXTREMITIES. TRACH SECURE IN PROPER PLACE. SITTER NEXT THE BED. GLYTROL 55 CC/HR. NS 40 ML/HR. IV PATENT. NO SIGNS OF INFILTRATION. VS STABLE. BED IN LOW POSITION. SIDE RAILSX2. CALL LIGHT WITHIN REACH. WILL ENDORSE TO THE DISTRIBUTOR OF DIRECTORIESINTERNAL AUDIT SENIOR MANAGER FOR CONTINUITY OF CARE
--- NOTE | 2017-01-29 19:30 | NUR ---
TELE ASSOCIATE PROFESSOR OF FORESTRY INITIAL NOTES RECEIVED REPORT FROM AM NURSE DOMENICO, CHECKED PT SHE'S AWAKE AND SEEMS DEPRESSED BECAUSE SHE'S CRYING. DAUGHTER AT THE BEDSIDE AT THIS TIME TRYING TO TALKED TO HER . NO SIGNS OF ANY ACUTE DISTRESS NOTED. SKIN WARM AND DRY TO TOUCH, PT ON MECHANICAL VENT SET UP BY RT , TV 500, AC 14 FI02 AT 40 % AND PEEP 5. WITH TRACH SHILEY #8. SHE ALSO ON G-TUBE FEEDING CLAMPED AT THIS TIME AND AND ON AT 2100. NO ASPIRATION NOTED. SHE ALSO WITH IVF NS AT 40ML/HR INFUSING ON HER RIGHT UPPER ARM MIDLINE. NO REDNESS NOTED. SHE ALSO WITH DVT PUMP BOTH LOWER LEGS PULSE PRESENT. KEPT HER COMFORTABLE AND SAFE AT ALL TIMES. TELE SINUS RHYTHM HEART RATE 91 PER MONITOR. ON CONTACT ISOLATION PRECAUTION IMPLEMENTED AND OBSERVED. WILL CONTINUE CLOSELY MONITORING FOR SAFETY.
[2017-01-29 20:00] VITALS: BP 92/50
[2017-01-29] MEDS: ATORVASTATIN 10 MG TABLET GT SCH (21:16)
[2017-01-29] MEDS: QUETIAPINE FUMARATE 100 MG TABLET PO SCH (21:16)
[2017-01-29] MEDS: clonazePAM 0.5 MG TABLET GT SCH (21:17)
--- NOTE | 2017-01-29 21:31 | NUR ---
TELE CONSULTING APPLICATION ENGINEER NOTES ROUTINE MEDS GIVEN JAYME HER G-TUBE EXCEPT LASIX AND ISORDIL BECAUSE BLOOD PRESSURE OF THE PT IS LOW 92/50. NO EDEMA NOTED AT THIS TIME. KEPT HER SAFE AT ALL TIMES. NO ASPIRATION NOTED, G-TUBE IN PLACE NO RESIDUAL NOTED. KEPT HER ON SEMI FOWLERS POSITION WITH SIDE RAILS UP. CLOSELY MONITORING FOR SAFETY.
--- NOTE | 2017-01-29 22:20 | NUR ---
TELE INTERVENTIONIST NOTES COLEMAN GIVEN JAYME G-TUBE FEEDING TO HELP THE PATIENT TO SLEEP. STILL CONFUSION NOTED, RE-ORIENTED WHERE SHE AT , NO SIGNS OF ANY ACUTE DISTRESS NOTED. WILL CONTINUE TO MONITOR.
[2017-01-30] VITALS (7 sets, daily range): BP systolic 96–123; BP diastolic 34–97
[2017-01-30] MEDS: Z GUARD REMEDY 2 OZ OINT TP PRN
--- NOTE | 2017-01-30 | NUR ---
principal automation engineer/notes pt still wake and confusion noted, gave warm sponges bath rendered maybe helped her to relaxed and sleep. breathing even and non-labored , not in any acute distress noted. g-tube feeding tolerated well no aspiration noted. . kept her warm and comfortable at all times. tele SR heart rate 91 per monitor. will continue closely monintoring for safety.
[2017-01-30] MEDS: BLOOD SUGAR DIAGNOSTIC 1 EACH STRIP IN SCH ×5 (01:06→23:51)
[2017-01-30] MEDS: CIPROFLOXACIN HCL 0.3% 5 ML BOTTLE EACHEYE SCH ×6 (01:11→21:41)
[2017-01-30] MEDS: IPRATROPIUM NEB FS 0.5 MG/2.5 ML AMPUL.NEB NEB SCH ×4 (01:36→20:05)
[2017-01-30] MEDS: ALBUTEROL FS 2.5 MG/0.5 ML VIAL.NEB NEB SCH ×4 (01:36→20:05)
--- NOTE | 2017-01-30 02:50 | NUR ---
FRANK NOTES PT STILL AWAKE AND SO CONFUSED AND COMBATIVE, CALLED SOME HELPED BECAUSE SHE TRIED TO GET UP AND AT THE SAME TIME PULLING HER TUBING. HOLD HER G-TUBE FEEDING FOR A WHILE TO PREVENT HER FROM ASPIRATION, ESTRELLA /OMAR HELPED TO TRANSLATE TO THE PT ,BECAUSE PT SPEAK AMHARIC WHILE WE PULLING HER UP AND REPOSITION HER FOR COMFORT. DIAPER ALSO CHANGED. KEPT HER WARM AND COMFORTABLE AT ALL TIMES. CONTINUE MONITORING AND EDUCATE AND RE-ORIENT PT .
--- NOTE | 2017-01-30 02:56 | NUR ---
rn notes: dr henriquez currently in the unit, discussed about pt's behavior, still trying to get out of bed and pull out trache despite giving scheduled night medicine, pt's bp on low 90's, ambien cannot be given due to low bp, md ask about pt's qt interval and per air sampling and monitoring luciana qt interval is 0.43 sec, per dr henriquez to give haldol 0.5mg via gt one time dose, tong smith aware Addendum: 01/30/17 at 0316 by MURIEL MOORE RN correction of entry: not ambien, but instead cannot give prn ativan
--- NOTE | 2017-01-30 02:56 | NUR ---
rn notes: dr henriquez currently in the unit, discussed about pt's behavior, still trying to get out of bed and pull out trache despite giving scheduled night medicine, pt's bp on low 90's, prn ativan cannot be given due to low bp, md ask about pt's qt interval and per cardiac monitor technician jay qt interval is 0.43 sec, per dr henriquez to give haldol 0.5mg via gt one time dose, metal furniture assembler luis aware
[2017-01-30] MEDS ORDERED: HALOPERIDOL 1 MG TABLET ONE (03:00)
[2017-01-30] MEDS ORDERED: HALOPERIDOL 1 MG TABLET GT PRN (03:00)
[2017-01-30] MEDS ORDERED: HALOPERIDOL 1 MG TABLET GT ONE (03:00)
--- NOTE | 2017-01-30 03:13 | NUR ---
TELE ROCK DUST SPRAYER NOTES HALDOL 0.5 MG GIVEN JAYME G-TUBE PER MD ORDERED. VITAL SIGNS FF. BP 100/52, PULSE 81, RESPIRATION 14 . CONTINUE MONITORING FOR SAFETY.
[2017-01-30] MEDS: IV NS 0.9% 1,000 ML IV PRN (03:37)
[2017-01-30] MEDS: GLYTROL 1,000 ML BAG GT PRN (04:31)
--- NOTE | 2017-01-30 04:42 | NUR ---
checker in/notes pt resting and calmed at this time after haldol given. breathing even and non-labored , not in any acute distress noted.will continue monitoring.
[2017-01-30] MEDS: GABAPENTIN 100 MG CAPSULE GT SCH ×3 (05:55→21:41)
[2017-01-30] MEDS: DIVALPROEX SODIUM 125 MG CAP.SPRINK GT SCH ×3 (05:55→21:40)
[2017-01-30] MEDS: VANCOMYCIN HCL 125 MG/2.5 ML ORAL.SUSP PO SCH ×4 (05:56→17:39)
--- NOTE | 2017-01-30 06:00 | NUR ---
PARTS SALVAGER NOTES PT STARTED TO MOVED TRYING TO GET UP , DOESN'T LISTENED, CALLED FOR HELPED AND JUANY/RN CAME WE FULL HER UP USING THE LINEN TO PREVENT FROM ASPIRATION BUT PATIENT SO AGITATED, STARTED TO HIT US AND KICKING WELL. CALLED ANOTHER ONE TO HELPED TO TRANSLATE MAYBE IT HELPED HER TO CALMED DOWN BUT INSTEAD PATIENT SAYING DIFF. THINGS. AFTER WE GIVE SPONGES BATH SHE 'S QUIET BUT ON AND OFF CONFUSION AND AGITATED NOTED. NEEDS TO REMIND HER WHERE SHE AT AND SAYING DON'T DO THIS DON'T DO THAT. NO SIGNS OF ANY ACUTE DISTRESS NOTED EVEN THOUGH SHE'S MOVING O SLIDING HER SELF. TELE SR PER MONITOR.
[2017-01-30 06:40] LABS: BASOPHILS % (AUTO) 0.3 % (0.0-2.0); EOSINOPHILS # (AUTO) 0.2 /CMM (0.0-0.7); EOSINOPHILS % (AUTO) 1.9 % (0.0-6.0); HEMATOCRIT 24 % (33-45); HEMOGLOBIN 8.1 g/dL (11.5-14.8); LYMPHOCYTES # (AUTO) 2.3 /CMM (0.8-4.8); LYMPHOCYTES % (AUTO) 22.7 % (20.0-44.0); MEAN CORPUSCULAR HEMOGLOBIN 30 PG (26.0-33.0); MEAN CORPUSCULAR HGB CONC 35 g/dl (31.0-36.0); MEAN CORPUSCULAR VOLUME 88 fL (82-100); MONOCYTES # (AUTO) 0.7 /CMM (0.1-1.30); MONOCYTES % (AUTO) 6.6 % (2.0-12.0); NEUTROPHILS % (AUTO) 68.5 % (43.0-81.0); PLATELET COUNT (AUTO) 388 /CMM (150-450); RDW COEFFICIENT OF VARIATION 15.2 (11.5-15.0); RED BLOOD CELL COUNT(AUTO) 2.67 MIL/uL (4.0-5.2); WHITE BLOOD COUNT (AUTO) 10.2 K/uL (4.3-11.0)
[2017-01-30 06:58] LABS: CALCIUM, SERUM 8.3 mg/dL (8.5-10.1); CREATININE 0.6 mg/dL (0.6-1.3); POTASSIUM 3.3 mmol/L (3.5-5.1)
[2017-01-30] MEDS: INSULIN NPH/REG 70/30 MIX INJ 100 UNIT/ML CARTRIDGE SQ SCH ×2 (06:59→17:39)
--- NOTE | 2017-01-30 07:16 | NUR ---
TELE REPAIRER PUMP CLOSING NOTES PT REMAINS AWAKE ON SEMI FOWLERS POSITION, ON AND OFF CONFUSION, G-TUBE TOLERATED WELL, NO ASPIRATION NOTED, IVF STILL INFUSING ON HER RIGHT UPPER ARM. TELE SR PER MONITOR. ALL DUE MEDS GIVEN AND ALL NEEDS MET. SLEPT NOT WELL LIKE ONLY 1-2 HRS EVEN AMBIEN GIVEN . HALDO ALSO ADMINISTERED BUT PT CALMED FOR ONLY 30 MINUTES. SITTER AT THE BEDSIDE FOR SAFETY. ENDORSE TO AM NURSE FOR CONTINUITY OF CARE.
--- NOTE | 2017-01-30 07:46 | NUR ---
BRICK PITCHER: INITIAL NOTE RECEIVED PT A/O X2-3. NO DISTRESS NOTED. ON VENT. SR AT 92. NO SOB. NO PAIN NOTED. PT RESTLESS AND TRYING TO MOVE OUT OF BED. 1:1 SITTER AT BEDSIDE. RE-ORIENTED PT. JENELLE MIDLINE RUNNING NS AT 40 ML/HR. NO REDNESS, NO BLEEDING. G-TUBE SITE PATENT. NO REDNESS, NO BLEEDING. G-TUBE RUNNING GLYTROL AT 40CC/HR FOR 20 HOURS. ON CONTACT ISOLATION FOR C.DIFF.
[2017-01-30] MEDS: ACIDOPHILUS/BULGARICUS 1 EACH TAB.CHEW PO SCH ×3 (08:22→17:37)
[2017-01-30] MEDS: FOLIC ACID 1 MG TABLET GT SCH (08:22)
[2017-01-30] MEDS: ASPIRIN 81 MG TAB.CHEW GT SCH (08:22)
[2017-01-30] MEDS: LEVETIRACETAM SOL (5 ML) 100 MG/ML UDC GT SCH ×2 (08:22→21:40)
[2017-01-30] MEDS: FUROSEMIDE 20 MG TABLET GT SCH ×2 (08:22→22:21)
[2017-01-30] MEDS: OLANZAPINE 5 MG TABLET GT SCH ×2 (08:22→21:50)
[2017-01-30] MEDS: QUETIAPINE FUMARATE 25 MG TABLET GT SCH ×2 (08:22→17:37)
[2017-01-30] MEDS: ENOXAPARIN SODIUM 30 MG/0.3 ML DISP.SYRIN SQ SCH (08:24)
[2017-01-30] MEDS: PROSOURCE / PROSTAT (PYXIS) 30 ML UDC GT SCH ×2 (08:24→17:37)
[2017-01-30] MEDS: PANTOPRAZOLE 40 MG/PACK PACK GT SCH ×2 (08:28→17:37)
[2017-01-30] MEDS: INSULIN NPH, HUMAN ISOPHANE 100 UNIT/ML VIAL SQ SCH ×2 (08:28→21:00)
[2017-01-30] MEDS: Z GUARD REMEDY 2 OZ OINT TP SCH ×2 (08:31→21:00)
[2017-01-30] MEDS: ISOSORBIDE DINITRATE (10MG) 10 MG TABLET GT SCH ×2 (08:32→21:44)
[2017-01-30] MEDS: HYDROCODONE/APAP 5/325MG 1 EACH TABLET PO PRN (09:01)
[2017-01-30] MEDS ORDERED: POTASSIUM CHLORIDE 20 MEQ POWDER PACKET GT SCH (12:00)
--- NOTE | 2017-01-30 13:42 | NUR ---
ANTONIA met with pt's daughter Mary Ann who is requesting the Advance Directive Form. ANTONIA discussed the form with her and reiterated to her that patient needs to be able to be alert and oriented to make the decisions and with a notary present while the application is being completed. Mary Ann stated she understood.
--- NOTE | 2017-01-30 18:47 | NUR ---
EXTRUDER OPERATOR VERTICAL: CLOSING NOTE PT A/O X1-2. TOOK ALL MEDICATIONS ON TIME. NO ADVERSE REACTIONS NOTED. NO PAIN NOTED. NO DISTRESS NOTED. 1:1 SITTER THROUGHOUT SHIFT. CONTACT SOFIA TO D/C CONTACT ISOLATION DUE TO NO DIARRHEA (LEFT MSG). JENELLE MIDLINE IN PLACE RUNNING NS AT 40ML/HR. G-TUBE IN PLACE. RUNNING AT 66ML/HR FOR 20 HOURS. STOPPED AT 1700. NO RESIDUAL NOTED. SITE CLEAR AND PATENT. PT WAS CALM THROUGHOUT SHIFT. RESTING COMFORTABLY IN BED. CALL LIGHT WITHIN REACH.
--- NOTE | 2017-01-30 20:58 | NUR ---
Patient is awake and akert to nurse at the bedside. She with actions, legs over the bed, to indicate she wants to get OOB. Repositioned her and this was effective to have her watch TV and relax. Resp even and unlabored. Lunds clear vis auscultation. Patient enjoys being spoken to . small conversation.
[2017-01-30] MEDS: ATORVASTATIN 10 MG TABLET GT SCH (21:40)
[2017-01-30] MEDS: clonazePAM 0.5 MG TABLET GT SCH (21:41)
[2017-01-30] MEDS: QUETIAPINE FUMARATE 100 MG TABLET PO SCH (21:44)
--- NOTE | 2017-01-30 22:00 | NUR ---
FOR PHARMACY: Getting out her medications for the night, I entered to remove LASIX. Opened the drawer and went to the bin instructed to remove the tablet. Removed the tablet, but back at her bed side when med scan..wrong medication..the medication read Finasteride, went back to the pixis and took out LASIX and chewcked the name and this time it was the correct tablet. The FINASTERIDE tablet was not opened and I gave it to the Charge nurse on maintenance mechanic 2nd shift 01/30/2017
--- NOTE | 2017-01-30 22:29 | NUR ---
Luz albert held d/t Bloodsugar 70, will recheck her blood sugar 2400 feeding is infusing as ordered.
--- NOTE | 2017-01-31 00:13 | NUR ---
ACCUCHECK 2400 was 56 1 container of orange juice given via GT followed by water, asp precautions, will reckeck in 30 minutes. Patient is aspytomiatic
[2017-01-31] MEDS: VANCOMYCIN HCL 125 MG/2.5 ML ORAL.SUSP PO SCH ×4 (00:18→17:42)
[2017-01-31 00:43] VITALS: BP 113/37
--- NOTE | 2017-01-31 00:45 | NUR ---
made aware that the blood pressure 113/37 diastolic running low and that the blood sugar was 56 after juice up to 83 new orders for the blood sugars
[2017-01-31] MEDS: IPRATROPIUM NEB FS 0.5 MG/2.5 ML AMPUL.NEB NEB SCH ×4 (00:49→19:26)
[2017-01-31] MEDS: ALBUTEROL FS 2.5 MG/0.5 ML VIAL.NEB NEB SCH ×4 (00:49→19:26)
[2017-01-31] MEDS: CIPROFLOXACIN HCL 0.3% 5 ML BOTTLE EACHEYE SCH ×6 (00:54→22:15)
[2017-01-31] MEDS ORDERED: DEXTROSE 50%-WATER 50 ML DISP.SYRIN IV PRN (01:00)
--- NOTE | 2017-01-31 01:06 | NUR ---
Patient multiple times repositioned and using pillows for support and in an attempt to keep her on her side, was not effective to keep her on her sides, she will scoot over and then be on her back just after the nurse had repositioned her.
[2017-01-31] MEDS: GLYTROL 1,000 ML BAG GT PRN (04:05)
[2017-01-31] MEDS: DIVALPROEX SODIUM 125 MG CAP.SPRINK GT SCH ×3 (05:03→22:16)
[2017-01-31] MEDS: GABAPENTIN 100 MG CAPSULE GT SCH ×3 (05:26→22:20)
[2017-01-31] MEDS: BLOOD SUGAR DIAGNOSTIC 1 EACH STRIP IN SCH ×4 (05:41→17:45)
[2017-01-31] MEDS: INSULIN REGULAR, HUMAN 100 UNIT/ML 3 ML VIAL SQ PRN ×3 (05:52→17:49)
--- NOTE | 2017-01-31 05:57 | NUR ---
Patient awake watching TV. When turned to cange her diaper and wash her buttocks and faustino area, she swing her arm at the nurse, and yells out names ,as if asking for assist from someone she knows. Verbally reassured her over and over, unsuccessfully. She refuses to lie on her sides and be supported with pillows, multiple attempts to reposition her. Patient is on Lasix, and d/t this medication voided frequently. She can be cooperative. She does understand when nurse speaks in Angolan/ [place] sugars at the begininng of the shift 56 Md made aware, after being given 118ml orange juice sugar up to 83 30 minutes later. Sliding scale in effect this 0600 Bloodsugar was 239 coverage given. Mouthcare throughout the night
[2017-01-31 07:00] LABS: CALCIUM, SERUM 7.7 mg/dL (8.5-10.1); CREATININE 0.8 mg/dL (0.6-1.3); POTASSIUM 3.5 mmol/L (3.5-5.1)
[2017-01-31 07:30] VITALS: BP 117/29
--- NOTE | 2017-01-31 07:30 | NUR ---
tele bucket turner: initial assessment received pt in bed with eyes close, easily arousable. vent dependent with settings: ac 15, tv500, fio2 at 40% and with peep of 5. hob elevated. on g-tube feeding, jenise. well. no residual obtained. reality orientation provided prn. will continue to monitor. Addendum: 01/31/17 at 1111 by LISA ANDERSEN JAVA [employer] LEAD tele sr=80's. continue on 1:1 sitter for safety.
[2017-01-31 08:00] VITALS: BP 106/36
[2017-01-31] MEDS: ISOSORBIDE DINITRATE (10MG) 10 MG TABLET GT SCH ×2 (08:14→22:17)
--- NOTE | 2017-01-31 08:45 | NUR ---
tele thermite bomb loader: notes lucretia (ancp) here and informed md re: low blood sugar episodes last night and also informed acnp re: 70/30 and nph on her med lists, stated, "i will review her meds." also informed md re: blood pressure and question the lasix order with order to hold dose today." will hold lasix as ordered. will continue to monitor.
[2017-01-31] MEDS: FUROSEMIDE 20 MG TABLET GT SCH ×2 (08:51→22:18)
[2017-01-31] MEDS: ASPIRIN 81 MG TAB.CHEW GT SCH (08:57)
[2017-01-31] MEDS: LEVETIRACETAM SOL (5 ML) 100 MG/ML UDC GT SCH ×2 (08:57→22:18)
[2017-01-31] MEDS: PANTOPRAZOLE 40 MG/PACK PACK GT SCH ×2 (08:57→17:42)
[2017-01-31] MEDS: FOLIC ACID 1 MG TABLET GT SCH (08:57)
[2017-01-31] MEDS: PROSOURCE / PROSTAT (PYXIS) 30 ML UDC GT SCH ×2 (08:57→17:42)
[2017-01-31] MEDS: ACIDOPHILUS/BULGARICUS 1 EACH TAB.CHEW PO SCH ×3 (08:57→17:42)
[2017-01-31] MEDS: QUETIAPINE FUMARATE 25 MG TABLET GT SCH ×2 (08:57→17:42)
[2017-01-31] MEDS: OLANZAPINE 5 MG TABLET GT SCH ×2 (08:58→22:20)
[2017-01-31] MEDS: ENOXAPARIN SODIUM 30 MG/0.3 ML DISP.SYRIN SQ SCH (09:00)
[2017-01-31] MEDS: INSULIN NPH/REG 70/30 MIX INJ 100 UNIT/ML CARTRIDGE SQ SCH ×2 (09:24→17:48)
[2017-01-31] MEDS: INSULIN NPH, HUMAN ISOPHANE 100 UNIT/ML VIAL SQ SCH ×2 (09:24→22:46)
--- NOTE | 2017-01-31 09:30 | NUR ---
tele hospitality intern: pulmo f/u seen by dr. youngblood with no new order.
[2017-01-31] MEDS: Z GUARD REMEDY 2 OZ OINT TP SCH ×2 (09:43→22:41)
--- NOTE | 2017-01-31 10:00 | NUR ---
tele acquisition editor: notes am care rendered. kept clean and dry. trach and g-tube care rendered. will continue to monitor.
--- NOTE | 2017-01-31 11:07 | NUR ---
tele shop fitter: md visit seen and examined by lucretia (acnp) at this time.
[2017-01-31] MEDS: LORAZEPAM 1 MG TABLET GT PRN (13:34)
--- NOTE | 2017-01-31 14:00 | NUR ---
tele manager payment: notes incontinent care rendered. kept clean and dry. turned and repositioned. will continue to monitor.
--- NOTE | 2017-01-31 16:00 | NUR ---
tele digitizer operator: notes turned and repositioned and incontinent care rendered. daughter at bedside. will continue to monitor.
[2017-01-31 16:25] VITALS: BP 110/33
--- NOTE | 2017-01-31 18:00 | NUR ---
tele hose seamer: notes resting comfortable in bed with no distress noted. hob elevated. tolerated g-tube feeding. no residual obtained. turned and repositioned. needs attended. will continue to monitor.
--- NOTE | 2017-01-31 19:30 | NUR ---
RN NOTES Received patient in bed, asleep. easily arousable with verbal and tactile stimuli. No apparent distress noted. No acute respiratory distress noted. Patient still on one on none sitter. Patient is calm and relaxed as of this time. Will continue to monitor.
[2017-01-31 20:00] VITALS: BP 153/66
[2017-01-31] MEDS: ATORVASTATIN 10 MG TABLET GT SCH (22:49)
[2017-01-31] MEDS: clonazePAM 0.5 MG TABLET GT SCH (22:49)
[2017-01-31] MEDS: QUETIAPINE FUMARATE 100 MG TABLET PO SCH (22:49)
[2017-02-01] VITALS (7 sets, daily range): BP systolic 74–141; BP diastolic 40–56
[2017-02-01] MEDS: VANCOMYCIN HCL 125 MG/2.5 ML ORAL.SUSP PO SCH ×4 (00:15→17:59)
[2017-02-01] MEDS: CIPROFLOXACIN HCL 0.3% 5 ML BOTTLE EACHEYE SCH ×6 (00:16→20:36)
[2017-02-01] MEDS: INSULIN REGULAR, HUMAN 100 UNIT/ML 3 ML VIAL SQ PRN ×2 (01:27→12:36)
[2017-02-01] MEDS: IPRATROPIUM NEB FS 0.5 MG/2.5 ML AMPUL.NEB NEB SCH ×4 (01:29→19:51)
[2017-02-01] MEDS: ALBUTEROL FS 2.5 MG/0.5 ML VIAL.NEB NEB SCH ×4 (01:29→19:51)
[2017-02-01] MEDS: GLYTROL 1,000 ML BAG GT PRN (01:58)
[2017-02-01] MEDS: IV NS 0.9% 1,000 ML IV PRN (04:28)
[2017-02-01] MEDS: GABAPENTIN 100 MG CAPSULE GT SCH ×3 (04:50→20:38)
[2017-02-01] MEDS: DIVALPROEX SODIUM 125 MG CAP.SPRINK GT SCH ×3 (04:50→20:37)
[2017-02-01] MEDS: BLOOD SUGAR DIAGNOSTIC 1 EACH STRIP IN SCH ×4 (06:23→17:38)
--- NOTE | 2017-02-01 08:34 | NUR ---
RN OPENING NOTES RECEIVED PATIENT RESTING COMFORTABLY WITH EYES CLOSED. PATIENT DIFFICULT TO AROUSE. PATIENT AOX1. SITTER AT THE BEDSIDE FOR REPORT SI. PATIENT TO BE TRANSFERRED TO CLEAN ROOM PER ID. PATIENT D/C ISO. PATIENT HAS GTUBE IN PLACE WITH GLYTROL RUNNING AT 55ML/HR. PATIENT HAS A TRACH IN PLACE WITH VENT SETTINGS AC:14, TV: 500, PEEP: 5.0, FIO2 40%. FRANSISCA 8. JENELLE PICC LINE PATENT WITH NS RUNNING AT 40 ML/HR. PATIENT ON TELE MONITOR READING SR 82. BED LOCKED IN THE LOWEST POSITION WITH SIDE RAILS UP X2. CALL LIGHT WITHIN REACH. WILL CONTINUE TO MONITOR, ASSESS AND EDUCATE PATIENT THROUGHOUT SHIFT.
--- NOTE | 2017-02-01 08:50 | NUR ---
RN NOTES GTUBE RESIDUAL CHECKED PRIOR TO MEDICATION ADMINISTRATION. NO RESIDUALS NOTED. G TUBE IN PLACE AND PATENT. WILL GIVEN MEDICATIONS APPROPRIATE.
[2017-02-01] MEDS: ISOSORBIDE DINITRATE (10MG) 10 MG TABLET GT SCH ×2 (09:00→20:37)
[2017-02-01] MEDS: FOLIC ACID 1 MG TABLET GT SCH (10:08)
[2017-02-01] MEDS: ASPIRIN 81 MG TAB.CHEW GT SCH (10:08)
[2017-02-01] MEDS: FUROSEMIDE 20 MG TABLET GT SCH ×2 (10:08→20:37)
[2017-02-01] MEDS: PANTOPRAZOLE 40 MG/PACK PACK GT SCH ×2 (10:08→17:39)
[2017-02-01] MEDS: LEVETIRACETAM SOL (5 ML) 100 MG/ML UDC GT SCH ×2 (10:08→20:37)
[2017-02-01] MEDS: PROSOURCE / PROSTAT (PYXIS) 30 ML UDC GT SCH ×2 (10:08→17:39)
[2017-02-01] MEDS: OLANZAPINE 5 MG TABLET GT SCH ×2 (10:09→20:38)
[2017-02-01] MEDS: ACIDOPHILUS/BULGARICUS 1 EACH TAB.CHEW PO SCH ×3 (10:09→17:39)
[2017-02-01] MEDS: QUETIAPINE FUMARATE 25 MG TABLET GT SCH ×2 (10:10→17:38)
[2017-02-01] MEDS: ENOXAPARIN SODIUM 40 MG/0.4 ML DISP.SYRIN SQ SCH (10:16)
[2017-02-01] MEDS: Z GUARD REMEDY 2 OZ OINT TP SCH ×2 (10:20→20:40)
[2017-02-01] MEDS: INSULIN NPH/REG 70/30 MIX INJ 100 UNIT/ML CARTRIDGE SQ SCH ×2 (10:24→18:20)
[2017-02-01] MEDS: INSULIN NPH, HUMAN ISOPHANE 100 UNIT/ML VIAL SQ SCH ×2 (10:25→20:38)
--- NOTE | 2017-02-01 10:34 | NUR ---
RN NON ADMIN NOTES PATIENT BP 75/51 ISOSORBIDE HELD. BP TOO LOW
--- NOTE | 2017-02-01 12:00 | NUR ---
RN NOTES PATIENT TO BE REMOVED FROM ISOLATION ROOM. PATIENT IS NO LONGER ON ISOLATION. PATIENT IS CLEAR OF C-DIFF PER INFECTIOUS DISEASE. WILL CARRY OUT ORDERS GIVEN AND WILL NOTIFY BEATER ROOM SUPERVISOR NINO.
--- NOTE | 2017-02-01 13:50 | NUR ---
RN NOTES PATIENT CLEANED AND TRANSFERRED TO ROOM 311-2. PATIENT TRANSFERRED WITH RT. PATIENT TOLERATED WELL. NEW BED FOR PATIENT. NEW LINEN AND GOWN. PREDICTIVE MAINTENANCE SPECIALIST AWARE.
[2017-02-01] MEDS: HYDROCODONE/APAP 5/325MG 1 EACH TABLET PO PRN (14:32)
--- NOTE | 2017-02-01 19:40 | NUR ---
RN NOTES PATIENT AWAKE RESTING COMFORTABLY IN BED. PATIENT ON VENT SUPPORT AND SATURATING ADEQUATELY. PATIENT DENIES PAIN. DENIES SOB. DENIES ANY PAIN. HOB ELEVATED. GTUBE FEEDING TOLERATED. PATIENT TOLERATING IV HYDRATION. PATIENT URINATING APPROPRIATELY. NO BM NOTED. ALL NEEDS MET. ALL MEDS GIVEN APPROPRIATELY. WILL ENDORSE TO NIGHT RN FOR SANJEEV.
--- NOTE | 2017-02-01 19:41 | NUR ---
RN NOTES RECEIVED PT AWAKE, HOB ELEVATED, NO SOB, NOT IN DISTRESS, ON MECHANICAL VENT WITH SETTINGS IN PLACE AND TOLERATED WELL. PT ALERT AND ORIENTED X1, MUMBLE WORDS. TELEMONITOR READS SINUS RHYTHM AT 78. RIGHT UPPER ARM MIDLINE PATENT AND INTACT WITH ONGOING IVF INFUSING WELL. GT INTACT, NO RESIDUAL NOTED, GT FEEDING TOLERATED WELL, PT NOTED CONTINOUSLY MOVING IN BED, SITTER AT BEDSIDE. KEPT PT COMFORTABLE AND ATTENDED. KEPT BED IN THE LOWEST POSITION, LOCKED, SIDE RAILS X2 UP, FALL PRECAUTION OBSERVED. WILL CONTINUE TO MONITOR PT.
[2017-02-01] MEDS: QUETIAPINE FUMARATE 100 MG TABLET PO SCH (21:58)
[2017-02-01] MEDS: ATORVASTATIN 10 MG TABLET GT SCH (21:58)
[2017-02-01] MEDS: clonazePAM 0.5 MG TABLET GT SCH (22:00)
[2017-02-02] VITALS: BP 88/46
[2017-02-02] MEDS: BLOOD SUGAR DIAGNOSTIC 1 EACH STRIP IN SCH ×5 (00:26→23:27)
[2017-02-02] MEDS: INSULIN REGULAR, HUMAN 100 UNIT/ML 3 ML VIAL SQ PRN ×4 (00:27→23:37)
[2017-02-02] MEDS: VANCOMYCIN HCL 125 MG/2.5 ML ORAL.SUSP PO SCH ×5 (00:27→23:35)
[2017-02-02] MEDS: CIPROFLOXACIN HCL 0.3% 5 ML BOTTLE EACHEYE SCH ×6 (00:38→20:35)
[2017-02-02] MEDS: IPRATROPIUM NEB FS 0.5 MG/2.5 ML AMPUL.NEB NEB SCH ×4 (01:12→19:35)
[2017-02-02] MEDS: ALBUTEROL FS 2.5 MG/0.5 ML VIAL.NEB NEB SCH ×4 (01:12→19:35)
[2017-02-02 04:00] VITALS: BP_SYST 94; BP_DIAS 28; BP_DIAS 48
[2017-02-02] MEDS: GABAPENTIN 100 MG CAPSULE GT SCH ×3 (04:46→20:37)
[2017-02-02] MEDS: DIVALPROEX SODIUM 125 MG CAP.SPRINK GT SCH ×3 (04:46→20:36)
[2017-02-02] MEDS: GLYTROL 1,000 ML BAG GT PRN (04:46)
[2017-02-02 06:00] VITALS: BP 121/47
[2017-02-02 07:12] LABS: CALCIUM, SERUM 8.4 mg/dL (8.5-10.1); CREATININE 0.8 mg/dL (0.6-1.3); POTASSIUM 3.4 mmol/L (3.5-5.1)
[2017-02-02 07:13] LABS: BASOPHILS % (AUTO) 0.2 % (0.0-2.0); EOSINOPHILS # (AUTO) 0.2 /CMM (0.0-0.7); EOSINOPHILS % (AUTO) 1.8 % (0.0-6.0); HEMATOCRIT 24 % (33-45); HEMOGLOBIN 7.9 g/dL (11.5-14.8); LYMPHOCYTES # (AUTO) 2.3 /CMM (0.8-4.8); LYMPHOCYTES % (AUTO) 24.8 % (20.0-44.0); MEAN CORPUSCULAR HEMOGLOBIN 29 PG (26.0-33.0); MEAN CORPUSCULAR HGB CONC 34 g/dl (31.0-36.0); MEAN CORPUSCULAR VOLUME 87 fL (82-100); MONOCYTES # (AUTO) 0.6 /CMM (0.1-1.30); MONOCYTES % (AUTO) 6.4 % (2.0-12.0); NEUTROPHILS # (AUTO) 6.1 /CMM (1.8-8.9); NEUTROPHILS % (AUTO) 66.8 % (43.0-81.0); PLATELET COUNT (AUTO) 497 /CMM (150-450); RDW COEFFICIENT OF VARIATION 15.5 (11.5-15.0); RED BLOOD CELL COUNT(AUTO) 2.71 MIL/uL (4.0-5.2); WHITE BLOOD COUNT (AUTO) 9.2 K/uL (4.3-11.0)
--- NOTE | 2017-02-02 07:35 | NUR ---
RN NOTES PT AWAKE, HOB ELEVATED, NO SOB, NO SIGNS OF DISTRESS AND DISCOMFORT NOTED, ON MECHANICAL VENT AND TOLERATED WELL. VITAL SIGNS STABLE, AFEBRILE. NO SIGNS OF HYPOGLYCEMIA NOTED, NO EPISODE OF NAUSEA AND VOMITING. PT STILL WITH EPISODE OF RESTLESSNESS AND AGITATION AND RESISTANCE WITH CARE. ALL DUE MEDS GIVEN EXCEPT FOR LASIX AND ISORDIL. SUCTION SECRETIONS PRN. TURNED AND REPOSITION SCHEDULED, Q2H. FALL PRECAUTION OBSERVED, SITTER AT BEDSIDE FOR SAFETY. ENDORSED TO MORNING RN FOR CONTINUITY OF CARE.
--- NOTE | 2017-02-02 07:50 | NUR ---
RN NOTES RECEIVED PT. PT IS IN BED AWAKE. NO S/S OF DISTRESS. PT IS VENT DEPENDENT, VENT SETTINGS IN PLACE. SITTER IS AT BEDSIDE. PT IS ON TELE MONITOR, CURRENTLY READING SR. PT G-TUBE CURRENTLY RUNNING GLYTROL AT 55 ML/HR. IV ACCESS IS LOCATED ON RIGHT UPPER ARM, MIDLINE RUNNING NS AT 40ML/HR. PER REPORT, SCHEDULED INSULIN HELD ON 02/01/17 FOR LOW BS. PT IS STILL AWAITING PLACEMENT TO FACILITY PER CASE MANAGEMENT, WILL F/U. ENVIRONMENTAL SAFETY CHECK PERFORMED, CALL LIGHT WITHIN REACH. WILL CONTINUE TO MONITOR.
[2017-02-02 08:00] VITALS: BP 84/54
[2017-02-02] MEDS: FUROSEMIDE 20 MG TABLET GT SCH ×2 (08:55→21:57)
[2017-02-02] MEDS: ISOSORBIDE DINITRATE (10MG) 10 MG TABLET GT SCH ×2 (09:00→21:00)
[2017-02-02] MEDS: QUETIAPINE FUMARATE 25 MG TABLET GT SCH ×2 (09:01→17:51)
[2017-02-02] MEDS: LEVETIRACETAM SOL (5 ML) 100 MG/ML UDC GT SCH ×2 (09:02→20:36)
[2017-02-02] MEDS: FOLIC ACID 1 MG TABLET GT SCH (09:02)
[2017-02-02] MEDS: OLANZAPINE 5 MG TABLET GT SCH ×2 (09:02→20:37)
[2017-02-02] MEDS: ACIDOPHILUS/BULGARICUS 1 EACH TAB.CHEW PO SCH ×3 (09:02→17:52)
[2017-02-02] MEDS: PROSOURCE / PROSTAT (PYXIS) 30 ML UDC GT SCH ×2 (09:03→17:51)
[2017-02-02] MEDS: PANTOPRAZOLE 40 MG/PACK PACK GT SCH ×2 (09:03→17:52)
[2017-02-02] MEDS: ENOXAPARIN SODIUM 40 MG/0.4 ML DISP.SYRIN SQ SCH (09:04)
[2017-02-02] MEDS: INSULIN NPH, HUMAN ISOPHANE 100 UNIT/ML VIAL SQ SCH ×2 (09:16→20:54)
[2017-02-02] MEDS: INSULIN NPH/REG 70/30 MIX INJ 100 UNIT/ML CARTRIDGE SQ SCH ×2 (09:16→17:00)
[2017-02-02] MEDS: ASPIRIN 81 MG TAB.CHEW GT SCH (09:17)
[2017-02-02] MEDS: Z GUARD REMEDY 2 OZ OINT TP SCH ×2 (09:18→21:20)
[2017-02-02] MEDS: IV NS 0.9% 1,000 ML IV PRN (09:29)
--- NOTE | 2017-02-02 10:05 | NUR ---
PAUL NOTES AM ISORSIBIDE HELD DUE TO LOW PT B Addendum: 02/02/17 at 1006 by ELIJAH METCALF * DUE TO LOW PT DIASTOLIC BP OF 121/47.
[2017-02-02] MEDS ORDERED: POTASSIUM CHLORIDE 20 MEQ TAB.PRT.SR PO ONE (11:30)
[2017-02-02] MEDS: LORAZEPAM 1 MG TABLET GT PRN (11:36)
[2017-02-02] MEDS: HYDROCODONE/APAP 5/325MG 1 EACH TABLET PO PRN (12:30)
[2017-02-02 13:01] VITALS: BP 141/56
[2017-02-02] MEDS: QUETIAPINE FUMARATE 25 MG TABLET PO PRN (14:29)
[2017-02-02] MEDS: ONDANSETRON HCL/PF 4 MG/2 ML VIAL IVP PRN (14:30)
[2017-02-02] MEDS ORDERED: PETROLATUM,WHITE PACKET 5 GM PACKET TP PRN (15:00)
[2017-02-02] MEDS ORDERED: WHITE PETROLATUM 28.35 GM TUBE TP PRN (15:30)
[2017-02-02] MEDS ORDERED: MORPHINE SULFATE INJ 2 MG/ML DISP.SYRIN IV PRN (16:00)
--- NOTE | 2017-02-02 18:50 | NUR ---
RN NOTES PT IS IN BED SLEEPING. SITTER AT BEDSIDE. NO S/S OF DISTRESS OR SOB. IV FLUIDS D/C. PT HAS C/O PAIN IN RLE THROUGHOUT THE DAY. PRN MORPH, AND US OF RLE ORDERED. SAFETY MEASURES IN PLACE, CALL LIGHT WITHIN REACH, WILL ENDORSE TO QUALITY IMPROVEMENT COORDINATOR FOR SANJEEV.
--- NOTE | 2017-02-02 19:25 | NUR ---
CLOTH WASHER BACK TENDER OPENING NOTES: RECEIVED PATIENT RESTING COMFORTABLY IN BED WITH HOB UP. PT IS A/OX1. PT HAS EYES OPEN AND IS ABLE TO MOUTH WORDS. SITTER AT BEDSIDE. PT HAS G TUBE. 5ML OF RESIDUAL NOTED. PT HAS GLYTROL FEEDING AT 55ML/HR. PT ALSO HAS TRACH IN PLACE SHILEY #8 AND IS ON MECHANICAL VENT. PT'S SETTINGS ARE AC #14, TV 500, PEEP 5, FIO2 40%. PT HAS JENELLE MIDLINE AND IS PATENT AND INTACT. PT IS CURRENTLY S/L. CALL LIGHT WITHIN PT'S REACH. BED KEPT IN LOW, LOCKED POSITION, AND SIDE RAILS X 2 UP. WILL CONTINUE TO MONITOR PT.
[2017-02-02 20:00] VITALS: BP 119/33
--- NOTE | 2017-02-02 20:54 | NUR ---
STUCCO PLASTERER NOTES: PT'S BLOOD SUGAR WAS 129. 34 UNITS OF NOVOLIN N WAS ADMINISTERED. WILL CONTINUE TO MONITOR PT.
[2017-02-02] MEDS: clonazePAM 0.5 MG TABLET GT SCH (21:57)
[2017-02-02] MEDS: QUETIAPINE FUMARATE 100 MG TABLET PO SCH (21:58)
[2017-02-02] MEDS: ATORVASTATIN 10 MG TABLET GT SCH (21:58)
--- NOTE | 2017-02-02 21:58 | NUR ---
YOUTH CAREER SPECIALIST NOTES: ISORDIL HELD D/T DIASTOLIC BEING 33. WILL CONTINUE TO MONITOR PT.
--- NOTE | 2017-02-02 23:37 | NUR ---
THREAD GRINDER TOOL NOTES: IT WAS MANUALLY ENTERED THAT 140 UNITS WAS GIVEN OF INSULIN. ERROR MADE AND MEANT THAT 140 WAS THE BLOOD SUGAR AND 2 UNITS OF INSULIN WAS ADMINISTERED. PLEASE NOTE ERROR.
--- NOTE | 2017-02-02 23:37 | NUR ---
RN NOTES: PT'S BLOOD SUGAR WAS 140. 2 UNITS OF INSULIN WAS ADMINISTERED. WILL CONTINUE TO MONITOR PT.
[2017-02-03] VITALS: BP 88/52
[2017-02-03] MEDS: CIPROFLOXACIN HCL 0.3% 5 ML BOTTLE EACHEYE SCH ×6 (00:02→20:25)
[2017-02-03] MEDS: IPRATROPIUM NEB FS 0.5 MG/2.5 ML AMPUL.NEB NEB SCH ×4 (01:17→20:01)
[2017-02-03] MEDS: ALBUTEROL FS 2.5 MG/0.5 ML VIAL.NEB NEB SCH ×4 (01:17→20:01)
[2017-02-03] MEDS: GLYTROL 1,000 ML BAG GT PRN ×2 (03:19→23:04)
[2017-02-03 04:00] VITALS: BP 113/36
[2017-02-03] MEDS: ONDANSETRON HCL/PF 4 MG/2 ML VIAL IVP PRN ×2 (04:19→10:34)
--- NOTE | 2017-02-03 04:20 | NUR ---
MARKETING SALES SUPERVISOR NOTES: PT IS COMPLAINING OF BEING NAUSEOUS. PT WAS ADMINISTERED ONDANSETRON IV. WILL CONTINUE TO MONITOR PT.
[2017-02-03] MEDS: GABAPENTIN 100 MG CAPSULE GT SCH ×3 (04:27→20:26)
[2017-02-03] MEDS: DIVALPROEX SODIUM 125 MG CAP.SPRINK GT SCH ×3 (04:27→20:26)
[2017-02-03] MEDS: BLOOD SUGAR DIAGNOSTIC 1 EACH STRIP IN SCH ×4 (05:08→23:04)
[2017-02-03] MEDS: VANCOMYCIN HCL 125 MG/2.5 ML ORAL.SUSP PO SCH ×4 (05:08→23:04)
[2017-02-03] MEDS: INSULIN REGULAR, HUMAN 100 UNIT/ML 3 ML VIAL SQ PRN ×3 (05:58→23:35)
--- NOTE | 2017-02-03 05:59 | NUR ---
SLIMER NOTES: BLOOD SUGAR THIS AM WAS 145. 2 UNITS OF INSULIN WAS ADMINISTERED. PT IS ALSO ON GLYTROL FEEDING VIA G TUBE AT 55ML/HR. WILL CONTINUE TO MONITOR PT.
--- NOTE | 2017-02-03 06:54 | NUR ---
INSPECTOR WATER POLLUTION CONTROL CLOSING NOTES: ALL NEEDS WERE ATTENDED AND ANTICIPATED FOR. PT IS CURRENTLY ASLEEP IN BED W/ HOB UP. PT IS A/OX1. PT ABLE TO MOUTH WORDS. SITTER AT BEDSIDE. PT HAS G TUBE. 5ML OF RESIDUAL NOTED. PT HAS GLYTROL FEEDING AT 55ML/HR. PT ALSO HAS TRACH IN PLACE SHILEY #8 AND IS ON MECHANICAL VENT. PT'S SETTINGS ARE AC #14, TV 500, PEEP 5, FIO2 40%. PT HAS JENELLE MIDLINE AND IS PATENT AND INTACT. PT IS CURRENTLY S/L. CALL LIGHT WITHIN PT'S REACH. PT IS ON TELE MONITOR AND IS SR 78. BED KEPT IN LOW, LOCKED POSITION, AND SIDE RAILS X 2 UP. WILL ENDORSE TO AM NURSE FOR SANJEEV.
--- NOTE | 2017-02-03 07:40 | NUR ---
RN NOTES RECEIVED PT. PT IS IN BED RESTING, SITTER AT BEDSIDE. NO S/S OF DISTRESS OR SOB. PT IS VENT DEPENDENT, VENT SETTINGS IN PLACE. PT DOES NOT APPEAR TO BE IN PAIN AT THIS MOMENT. PER SERGEANT OF OFFICERS REPORT, PT'S FAMILY REQUESTING IMAGING OF BLADDER/LOWER ABDOMINAL AREA DUE TO PRESUMED PAIN IN THE AREA. US OF LE ORDERED, WILL F/U WITH RADIOLOGY REGARDING PROCEDURE. SAFETY MEASURES IN PLACE, CALL LIGHT WITHIN REACH. WILL CONTINUE TO MONITOR.
[2017-02-03 08:00] VITALS: BP 70/44
[2017-02-03] MEDS: ASPIRIN 81 MG TAB.CHEW GT SCH (08:32)
[2017-02-03] MEDS: ACIDOPHILUS/BULGARICUS 1 EACH TAB.CHEW PO SCH ×3 (08:32→16:54)
[2017-02-03] MEDS: OLANZAPINE 5 MG TABLET GT SCH ×2 (08:32→20:26)
[2017-02-03] MEDS: PANTOPRAZOLE 40 MG/PACK PACK GT SCH ×2 (08:32→16:54)
[2017-02-03] MEDS: FOLIC ACID 1 MG TABLET GT SCH (08:33)
[2017-02-03] MEDS: FUROSEMIDE 20 MG TABLET GT SCH ×2 (08:33→21:21)
[2017-02-03] MEDS: LEVETIRACETAM SOL (5 ML) 100 MG/ML UDC GT SCH ×2 (08:33→20:26)
[2017-02-03] MEDS: PROSOURCE / PROSTAT (PYXIS) 30 ML UDC GT SCH ×2 (08:34→16:53)
[2017-02-03] MEDS: ENOXAPARIN SODIUM 40 MG/0.4 ML DISP.SYRIN SQ SCH (08:41)
[2017-02-03] MEDS: INSULIN NPH, HUMAN ISOPHANE 100 UNIT/ML VIAL SQ SCH ×2 (08:42→20:49)
[2017-02-03] MEDS: INSULIN NPH/REG 70/30 MIX INJ 100 UNIT/ML CARTRIDGE SQ SCH ×2 (08:42→17:00)
[2017-02-03] MEDS: QUETIAPINE FUMARATE 25 MG TABLET GT SCH ×2 (08:50→17:01)
[2017-02-03] MEDS: ISOSORBIDE DINITRATE (10MG) 10 MG TABLET GT SCH ×2 (09:00→20:26)
[2017-02-03] MEDS: Z GUARD REMEDY 2 OZ OINT TP SCH ×2 (09:05→20:35)
[2017-02-03 12:00] VITALS: BP 62/51
[2017-02-03] MEDS: LORAZEPAM 1 MG TABLET GT PRN (12:21)
[2017-02-03 16:00] VITALS: BP 95/25
[2017-02-03] MEDS ORDERED: VANC125C11 PO (17:45)
[2017-02-03] MEDS ORDERED: ACID1TAB12 PO (17:45)
[2017-02-03] MEDS ORDERED: NUT.100029 GT (17:45)
--- NOTE | 2017-02-03 18:36 | NUR ---
RN NOTES PT IS STABLE IN BED, SITTER AT BEDSIDE. NO S/S OF SOB OR DISTRESS. D/C ORDER RECEIVED. CASE MANAGEMENT AWARE, PT TO BE TRANSFERRED TO [facility]. WILL F/U TOMORROW. ALL PT NEEDS ANTICIPATED AND MET. SAFETY MEASURES IN PLACE, CALL LIGHT WITHIN REACH. WILL ENDORSE TO LOG CHIPPER OPERATOR FOR SANJEEV.
--- NOTE | 2017-02-03 19:28 | NUR ---
ELECTRICAL CHECKOUT MECHANIC NOTES: PEEP SETTINGS NOW TO 0; NEW ORDER PER. DR. CONWAY.
--- NOTE | 2017-02-03 19:28 | NUR ---
DIRECTOR OF ACADEMIC OPENING NOTES: RECEIVED PT IN BED RESTING COMFORTABLY W/ DAUGHTER AT BEDSIDE. HOB ELEVATED. PT SHOWS NO S/S OF DISTRESS AND IS CALM AT THE MOMENT. PT IS A/OX 1 AND IS ABLE TO OPEN EYES AND MOUTH WORDS IN [place]. SITTER AT BEDSIDE. PT IS ON TRACH/VENT. SHILEY #8 AND VENT SETTINGS ARE : AC #14, PEEP 5, TV #500, FIO2 40%. PT HAS G TUBE IN PLACE AND IS ON GLYTROL FEEDING AT 55ML/HR. PT ALSO HAS JENELLE MIDLINE AND IS CURRENTLY S/L. PT IS ALSO ON TELE. WILL CONTINUE TO MONITOR PT.
[2017-02-03 20:00] VITALS: BP 142/67
--- NOTE | 2017-02-03 20:49 | NUR ---
PARTY PLAN DEMONSTRATOR NOTES: BLOOD SUGAR WAS 191. 34 UNITS OF NOVOLIN N WAS ADMINISTERED. WILL CONTINUE TO MONITOR PT.
[2017-02-03] MEDS: ATORVASTATIN 10 MG TABLET GT SCH (21:21)
[2017-02-03] MEDS: QUETIAPINE FUMARATE 100 MG TABLET PO SCH (21:21)
[2017-02-03] MEDS: clonazePAM 0.5 MG TABLET GT SCH (21:22)
--- NOTE | 2017-02-03 23:37 | NUR ---
METAL BUGGY OPERATOR NOTES: BLOOD SUGAR WAS 225. 6 UNITS OF INSULIN WAS ADMINISTERED. PT ALSO ON GLYTROL FEEDING AT 55ML/HR. WILL CONTINUE TO MONITOR PT.
[2017-02-04] VITALS: BP 111/50
[2017-02-04] MEDS: CIPROFLOXACIN HCL 0.3% 5 ML BOTTLE EACHEYE SCH ×6 (00:11→21:19)
[2017-02-04] MEDS: ALBUTEROL FS 2.5 MG/0.5 ML VIAL.NEB NEB SCH ×4 (00:37→19:24)
[2017-02-04] MEDS: IPRATROPIUM NEB FS 0.5 MG/2.5 ML AMPUL.NEB NEB SCH ×4 (00:37→19:24)
[2017-02-04] MEDS: ONDANSETRON HCL/PF 4 MG/2 ML VIAL IVP PRN (00:55)
--- NOTE | 2017-02-04 00:58 | NUR ---
LICENSED EMBALMER NOTES: PT IS MOUTHING THAT SHE FEELS NAUSEOUS. PT WAS ADMINISTERED ZOFRAN 4MG IV. WILL CONTINUE TO MONITOR PT.
--- NOTE | 2017-02-04 01:00 | NUR ---
DIRECTOR CLINICAL DATA NOTES: NOTIFIED MOLD CLOSER HELPER THAT [facility] IS FINISHED AND THERE IS ANOTHER SCHEDULED ONE FOR 0500. CHARGE NURSE AWARE WELL. MOLD CLOSER HELPER WILL CHECK IF IT IS AVAILABLE.
--- NOTE | 2017-02-04 03:58 | NUR ---
ANIMAL TECHNICIAN NOTES: WAS NOTIFIED FROM CITY COUNCIL MEMBER THAT [facility] IS NOT AVAILABLE. WILL NON ADMIN FOR NEXT SCHEDULED DOSE AND ENDORSE TO AM NURSE TO NOTIFY PHARMACY IN THE AM.
[2017-02-04 04:00] VITALS: BP 144/56
[2017-02-04] MEDS: DIVALPROEX SODIUM 125 MG CAP.SPRINK GT SCH ×3 (04:08→21:02)
[2017-02-04] MEDS: GABAPENTIN 100 MG CAPSULE GT SCH ×3 (04:08→21:03)
[2017-02-04] MEDS: BLOOD SUGAR DIAGNOSTIC 1 EACH STRIP IN SCH ×4 (05:01→23:55)
[2017-02-04] MEDS: VANCOMYCIN HCL 125 MG/2.5 ML ORAL.SUSP PO SCH ×4 (05:02→23:56)
[2017-02-04] MEDS: INSULIN REGULAR, HUMAN 100 UNIT/ML 3 ML VIAL SQ PRN (05:50)
--- NOTE | 2017-02-04 05:52 | NUR ---
DERMATOLOGY SALES REPRESENTATIVE NOTES: BLOOD SUGAR THIS AM WAS 193. 3 UNITS OF INSULIN REGULAR WAS GIVEN. PT IS ALSO ON GLYTROL FEEDING AT 55ML/HR VIA G TUBE. WILL CONTINUE TO MONITOR PT.
--- NOTE | 2017-02-04 07:00 | NUR ---
WILDLIFE OFFICER CLOSING NOTES: ALL NEEDS WERE ATTENDED AND ANTICIPATED FOR. PT IS IN BED RESTING COMFORTABLY W/ HOB ELEVATED. PT KEPT CLEAN, DRY, AND COMFORTABLE. PT SHOWS NO S/S OF DISTRESS NOTED AT THIS TIME AND IS CALM AT THE MOMENT. PT IS A/OX1 AND IS ABLE TO OPEN EYES AND MOUTH WORDS IN [place]. SITTER AT BEDSIDE. PT IS ON TRACH/VENT. SHILEY #8 AND VENT SETTINGS ARE : AC #14, PEEP 0, TV #500, FIO2 40%. PT HAS G TUBE IN PLACE AND IS ON GLYTROL FEEDING AT 55ML/HR. 5ML OF RESIDUAL NOTED. PT ALSO HAS JENELLE MIDLINE AND IS CURRENTLY S/L. MIDLINE FLUSHED AND IS PATENT AND INTACT. PT IS ALSO ON TELE AND IS SR 87. WILL ENDORSE TO AM NURSE FOR SANJEEV.
--- NOTE | 2017-02-04 07:07 | NUR ---
ASSISTANT SPA DIRECTOR NOTES: CALLED PHARMACY AND SPOKE WITH JES AND INFORMED HER THAT PT IS OUT OF [facility].
[2017-02-04 07:29] LABS: BASOPHILS # (AUTO) 0.1 /CMM (0.0-0.2); BASOPHILS % (AUTO) 0.7 % (0.0-2.0); EOSINOPHILS # (AUTO) 0.2 /CMM (0.0-0.7); EOSINOPHILS % (AUTO) 1.7 % (0.0-6.0); HEMATOCRIT 26 % (33-45); HEMOGLOBIN 8.6 g/dL (11.5-14.8); LYMPHOCYTES # (AUTO) 2.9 /CMM (0.8-4.8); LYMPHOCYTES % (AUTO) 23.2 % (20.0-44.0); MEAN CORPUSCULAR HEMOGLOBIN 29 PG (26.0-33.0); MEAN CORPUSCULAR HGB CONC 33 g/dl (31.0-36.0); MEAN CORPUSCULAR VOLUME 88 fL (82-100); MONOCYTES # (AUTO) 0.6 /CMM (0.1-1.30); NEUTROPHILS # (AUTO) 8.6 /CMM (1.8-8.9); NEUTROPHILS % (AUTO) 69.4 % (43.0-81.0); PLATELET COUNT (AUTO) 411 /CMM (150-450); RDW COEFFICIENT OF VARIATION 16.3 (11.5-15.0); RED BLOOD CELL COUNT(AUTO) 2.93 MIL/uL (4.0-5.2); WHITE BLOOD COUNT (AUTO) 12.4 K/uL (4.3-11.0)
[2017-02-04 07:41] LABS: CALCIUM, SERUM 8.7 mg/dL (8.5-10.1); CREATININE 1.5 mg/dL (0.6-1.3); POTASSIUM 3.7 mmol/L (3.5-5.1)
--- NOTE | 2017-02-04 07:51 | NUR ---
CATHODE RAY TUBE SALVAGE PROCESSOR NOTES PATIENT SLEEPING CALMLY AT THIS TIME. ALERT ORIENTED X 1 PER BOILERMAKER INDUSTRIAL BOILERS. ON MECH VENT WITH SETTINGS ORDERED. ON TELE MONITORING WITH SR 88. MIDLINE ACCESS TO JENELLE, INTACT PATENT. RESP EVEN & NON LABORED. NO ACUTE DISTRESS, NO S/S OF PAIN NOTED. BED IN LOW LOCKED POSITION. CALL LIGHT WITHIN REACH. CONTINUING TO MONITOR.
[2017-02-04 08:00] VITALS: BP 102/50
[2017-02-04] MEDS: ASPIRIN 81 MG TAB.CHEW GT SCH (08:32)
[2017-02-04] MEDS: PANTOPRAZOLE 40 MG/PACK PACK GT SCH ×2 (08:32→17:59)
[2017-02-04] MEDS: FOLIC ACID 1 MG TABLET GT SCH (08:32)
[2017-02-04] MEDS: ACIDOPHILUS/BULGARICUS 1 EACH TAB.CHEW PO SCH ×3 (08:32→17:59)
[2017-02-04] MEDS: OLANZAPINE 5 MG TABLET GT SCH ×2 (08:33→21:03)
[2017-02-04] MEDS: FUROSEMIDE 20 MG TABLET GT SCH ×2 (08:33→21:03)
[2017-02-04] MEDS: LEVETIRACETAM SOL (5 ML) 100 MG/ML UDC GT SCH ×2 (08:33→21:03)
[2017-02-04] MEDS: PROSOURCE / PROSTAT (PYXIS) 30 ML UDC GT SCH ×2 (08:42→18:04)
[2017-02-04] MEDS: ENOXAPARIN SODIUM 40 MG/0.4 ML DISP.SYRIN SQ SCH (08:43)
[2017-02-04] MEDS: INSULIN NPH/REG 70/30 MIX INJ 100 UNIT/ML CARTRIDGE SQ SCH ×2 (08:48→18:21)
[2017-02-04] MEDS: Z GUARD REMEDY 2 OZ OINT TP SCH ×2 (08:56→21:03)
[2017-02-04] MEDS: QUETIAPINE FUMARATE 25 MG TABLET GT SCH ×2 (10:05→18:00)
[2017-02-04] MEDS: ISOSORBIDE DINITRATE (10MG) 10 MG TABLET GT SCH ×2 (10:05→21:02)
[2017-02-04] MEDS: INSULIN NPH, HUMAN ISOPHANE 100 UNIT/ML VIAL SQ SCH (10:35)
[2017-02-04 12:00] VITALS: BP 147/50
[2017-02-04] MEDS: LORAZEPAM 1 MG TABLET GT PRN (15:57)
[2017-02-04 16:00] VITALS: BP 135/56
--- NOTE | 2017-02-04 18:48 | NUR ---
GRAVITY METER OBSERVER NOTES PATIENT SLEEPING WITHOUT ANY S/S OF AGITATION, NO SOB, RESP EVEN & NONLABORED. ON [facility] [place] VENT WITH SETTINGS ORDERED. ON TELE MONITORING WITH SR 83. HAD EPISODE OF ANXIOUSNESS/RESTLESSNESS, PRN ATIVAN GIVEN & WAS EFFECTIVE. MIDLINE ACCESS ON JENELLE, INTACT PATENT. REPOSITIONED PER FACILITY PROTOCOL. KEPT CLEAN & DRY. BED IN LOW LOCKED POSITION. CALL LIGHT WITHIN REACH. WILL ENDORSE TO MILL LABORER.
[2017-02-04 20:00] VITALS: BP_SYST 135; BP_DIAS 51; BP_DIAS 56
--- NOTE | 2017-02-04 20:00 | NUR ---
RN NOTES RECEIVED PATIENT IN BED, RESTING COMFORTABLY, ON TRACH, VENTILATOR IN GOOD WORKING CONDITION, 02 SAT 99%, WITH EPISODES OF COMBATIVENESS AND RESTLESSNESS. NOT IN APPARENT PAIN, NO FACIAL GRIMACING, CALM AT THIS TIME, JENELLE MIDLINE IS PATENT AND INFUSING WELL, GT FEEDING IS CLAMPED AND WILL RESUME AT 2200. GT AUSCULTATED AND FLUSHED, ZERO RESIDUAL. KEPT HOB ELEVATED, SITTER AT THE BEDSIDE. CALL LIGHT WITHIN REACH.
--- NOTE | 2017-02-04 21:30 | NUR ---
RN NOTES WILL HOLD NOVOLIN 34 UNITS FOR NOW, BG 123 MG/DL, WILL RE CHECK BG AT 00:00. GT FEEDING HELD TILL 2200, WILL CONTINUE TO MONITOR.
[2017-02-04] MEDS: clonazePAM 0.5 MG TABLET GT SCH (21:59)
[2017-02-04] MEDS: ATORVASTATIN 10 MG TABLET GT SCH (21:59)
[2017-02-04] MEDS: GLYTROL 1,000 ML BAG GT PRN (21:59)
[2017-02-04] MEDS: QUETIAPINE FUMARATE 100 MG TABLET PO SCH (22:11)
[2017-02-05] VITALS: BP 97/36
[2017-02-05] MEDS: INSULIN NPH, HUMAN ISOPHANE 100 UNIT/ML VIAL SQ SCH ×3 (00:02→20:33)
[2017-02-05] MEDS: INSULIN REGULAR, HUMAN 100 UNIT/ML 3 ML VIAL SQ PRN ×4 (00:03→17:10)
[2017-02-05] MEDS: CIPROFLOXACIN HCL 0.3% 5 ML BOTTLE EACHEYE SCH ×6 (00:05→20:30)
[2017-02-05] MEDS: ALBUTEROL FS 2.5 MG/0.5 ML VIAL.NEB NEB SCH ×4 (01:18→19:23)
[2017-02-05] MEDS: IPRATROPIUM NEB FS 0.5 MG/2.5 ML AMPUL.NEB NEB SCH ×4 (01:18→19:23)
[2017-02-05 04:00] VITALS: BP_SYST 111; BP_SYST 92; BP_DIAS 25; BP_DIAS 45
[2017-02-05] MEDS: DIVALPROEX SODIUM 125 MG CAP.SPRINK GT SCH ×3 (05:14→20:31)
[2017-02-05] MEDS: GABAPENTIN 100 MG CAPSULE GT SCH ×3 (05:14→20:32)
[2017-02-05] MEDS: BLOOD SUGAR DIAGNOSTIC 1 EACH STRIP IN SCH ×4 (05:14→17:09)
[2017-02-05] MEDS: VANCOMYCIN HCL 125 MG/2.5 ML ORAL.SUSP PO SCH ×3 (05:32→17:30)
--- NOTE | 2017-02-05 06:30 | NUR ---
RN NOTES PATIENT IS AWAKE AND ALERT, NO SOB, VENTILATOR IN GOOD WORKING CONDITION, NOT IN APPARENT PAIN, NO FACIAL GRIMACING, WITH EPISODES OF AGITATION M/B BY RESTLESSNESS, DANGLING LEGS ON THE SIDE OF BED, TRYING TO GET OUT OF BED, JENELLE MIDLINE IS PATENT AND INFUSING WELL, GT FEEDING IS INFUSING WELL, TOLERATED WELL, NO ABDOMINAL DISTENTION, NO VOMITING, NO RESIDUAL. BP RUNS LOW BELOW SBP 100 TO MID 90S. WHEN AWAKE, SBP GOES UP TO > 100. ALL DUE MEDICATIONS GIVEN, SITTER AT THE BEDSIDE.
[2017-02-05 06:58] LABS: BASOPHILS % (AUTO) 0.3 % (0.0-2.0); EOSINOPHILS # (AUTO) 0.3 /CMM (0.0-0.7); EOSINOPHILS % (AUTO) 2.4 % (0.0-6.0); HEMATOCRIT 26 % (33-45); HEMOGLOBIN 8.5 g/dL (11.5-14.8); LYMPHOCYTES # (AUTO) 3.5 /CMM (0.8-4.8); LYMPHOCYTES % (AUTO) 26.6 % (20.0-44.0); MEAN CORPUSCULAR HEMOGLOBIN 29 PG (26.0-33.0); MEAN CORPUSCULAR HGB CONC 33 g/dl (31.0-36.0); MEAN CORPUSCULAR VOLUME 87 fL (82-100); MONOCYTES # (AUTO) 0.6 /CMM (0.1-1.30); MONOCYTES % (AUTO) 4.6 % (2.0-12.0); NEUTROPHILS # (AUTO) 8.7 /CMM (1.8-8.9); NEUTROPHILS % (AUTO) 66.1 % (43.0-81.0); PLATELET COUNT (AUTO) 443 /CMM (150-450); RDW COEFFICIENT OF VARIATION 16.1 (11.5-15.0); RED BLOOD CELL COUNT(AUTO) 2.99 MIL/uL (4.0-5.2); WHITE BLOOD COUNT (AUTO) 13.1 K/uL (4.3-11.0)
--- NOTE | 2017-02-05 07:20 | NUR ---
INVESTMENT PROFESSIONAL NOTES RECEIVED PATIENT IN BED, AWAKE. TRACH IN PLACE, ON VENT. PATIENT APPEARS ANXIOUS AND RESTLESS. SATING 99%, ON TELE MONITOR SINUS RHYTHM WITH PVS, NO SOB. GTUBE FEEDING AT 55ML/HR. JENELLE MIDLINE PATENT AND INTACT, FLUSHES WELL. WILL CONT TO MONITOR, 1:1 SITTER AT THE BEDSIDE.
[2017-02-05 08:00] VITALS: BP 126/58
[2017-02-05] MEDS: FOLIC ACID 1 MG TABLET GT SCH (08:11)
[2017-02-05] MEDS: PANTOPRAZOLE 40 MG/PACK PACK GT SCH ×2 (08:12→16:25)
[2017-02-05] MEDS: OLANZAPINE 5 MG TABLET GT SCH ×2 (08:13→20:31)
[2017-02-05] MEDS: LEVETIRACETAM SOL (5 ML) 100 MG/ML UDC GT SCH ×2 (08:13→20:32)
[2017-02-05] MEDS: ISOSORBIDE DINITRATE (10MG) 10 MG TABLET GT SCH ×2 (08:13→20:38)
[2017-02-05] MEDS: QUETIAPINE FUMARATE 25 MG TABLET GT SCH ×2 (08:13→16:25)
[2017-02-05] MEDS: FUROSEMIDE 20 MG TABLET GT SCH ×2 (08:13→20:38)
[2017-02-05] MEDS: ASPIRIN 81 MG TAB.CHEW GT SCH (08:13)
[2017-02-05] MEDS: PROSOURCE / PROSTAT (PYXIS) 30 ML UDC GT SCH ×2 (08:14→16:26)
[2017-02-05] MEDS: ENOXAPARIN SODIUM 40 MG/0.4 ML DISP.SYRIN SQ SCH (08:16)
[2017-02-05] MEDS: ACIDOPHILUS/BULGARICUS 1 EACH TAB.CHEW PO SCH ×3 (09:02→16:25)
[2017-02-05] MEDS: INSULIN NPH/REG 70/30 MIX INJ 100 UNIT/ML CARTRIDGE SQ SCH ×2 (09:05→17:00)
[2017-02-05] MEDS: Z GUARD REMEDY 2 OZ OINT TP SCH ×2 (09:06→20:31)
--- NOTE | 2017-02-05 10:03 | NUR ---
WBC ELEVATED 13.1, HOLD DC TODAY 02/05/17 PER WEB PRODUCTION MANAGER/BUSBY. WILL COLLECT URINE FOR URINALYSIS TEST.
[2017-02-05 12:00] VITALS: BP 135/61
[2017-02-05] MEDS: ACETAMINOPHEN 325 MG TABLET PO PRN (12:52)
[2017-02-05] MEDS: QUETIAPINE FUMARATE 25 MG TABLET PO PRN (12:52)
--- NOTE | 2017-02-05 12:56 | NUR ---
PATIENT APPEARS AGITATED AND WITH FACIAL GRIMACING, TRYING TO PULL OUT TUBES, SLIDING HERSELF TO FOOT OF THE BED. GIVEN SEROQUEL 12.5MG PRN AND TYLENOL PRN. 1:1 SITTER AT THE BEDSIDE.
[2017-02-05 15:22] LABS: APPEARANCE,URINE CLEAR (CLEAR); BILIRUBIN,URINE NEGATIVE (NEGATIVE); BLOOD, URINE NEGATIVE Ery/uL (NEGATIVE); COLOR,URINE YELLOW (YELLOW); KETONES,URINE NEGATIVE (NEGATIVE); LEUKOCYTE ESTERASE ,URINE NEGATIVE (NEGATIVE); NITRITE, URINE NEGATIVE (NEGATIVE); PH,URINE 6.5 (5.0-8.0); PROTEIN,URINE NEGATIVE (NEGATIVE); UGLUCOSE NEGATIVE (NEGATIVE); UROBILINOGEN,URINE 0.2 EU/dL (0.2)
[2017-02-05 16:00] VITALS: BP 116/44
--- NOTE | 2017-02-05 17:11 | NUR ---
ACCU CHECK 77MG/DL SCHEDULE INSULIN 70/30 10 UNITS NON ADMINISTERED.
[2017-02-05] MEDS: LORAZEPAM 1 MG TABLET GT PRN (17:27)
--- NOTE | 2017-02-05 18:27 | NUR ---
SKILL LABOR CLOSING NOTES PATIENT IN BED, CALM AT THIS TIME, ATIVAN 1MG PRN EFFECTIVE FOR ANXIETY. MAINTAIN SAFETY PRECAUTION. ON TELE MONITOR SINUS RHYTHM HR 88, NO SOB, VENT SETTINGS REMAINS THE SAME. ON GTUBE FEEDING AT 55ML/HR, TOLERATING WELL. ON ANTIBIOTIC WITH NO ADVERSE SIDE EFFECT, AFEBRILE, NO DIARRHEA. TURN AND REPOSITION Q 2HOURS, CONTINUOUS TO OFFLOAD EXTREMITIES. 1:1 AT THE BEDSIDE. DISCHARGE HELD TODAY PER HARDWARE PRESS OPERATOR/BUSBY. CHARGE NURSE IS AWARE. WILL ENDORSE TO OUTBOUND TELEMARKETER RN FOR SANJEEV.
--- NOTE | 2017-02-05 19:30 | NUR ---
SCIENTIFIC DATABASE CURATOR OPENING NOTES: PATIENT IN BED, AOX1, ON [facility] VENTILATION WITH THE FF SETTINGS: AC:14, FIO2: 40%, TV: 500, PEEP:0. O2 SAT AT 99-100%. ON TELE MONITORING: SR AT RATE OF 86. WITH G TUBE, CLAMPED AT THIS TIME, PER REPORT, FEEDING TO BE RESTARTED AT 2200 PM. JENELLE MIDLINE INTACT AND PATENT TO FLUSH. PROVIDED FOR COMFORT AND SAFETY. BED IN LOWEST AND LOCKED POSITION, SIDERAILS UPX3. FAMILY AT BEDSIDE. WILL CONT TO MONITOR.
[2017-02-05 20:00] VITALS: BP 114/51
--- NOTE | 2017-02-05 20:27 | NUR ---
RN NOTES: RECEIVED CALL FROM FREDDIE BAY, DAUGHTER AND PRIMARY CONTACT. PER DTR, SHE HAS HAD AN AGREEMENT WITH HER SISTER GISSEL STEWART THAT THE LATTER WILL NOT HAVE ANYTHING TO DO WITH HER MOTHER'S CARE. PER FREDDIE, SHE HAS SPOKEN TO A MAINTENANCE TRAINER RE THIS MATTER, AND THAT SHE DOES NOT WANT GISSEL STEWART TO KNOW ANY LABS OR INFO RE WHERE THE PATIENT WILL BE PLACED AFTER DISCHARGE FROM [facility].
--- NOTE | 2017-02-05 20:36 | NUR ---
RN NOTES: PATIENT'S BLOOD SUGAR IS 95 MG/DL, HELD NOVOLIN N 34 UNITS SCHEDULED FOR 2100 PM.
[2017-02-05] MEDS: GLYTROL 1,000 ML BAG GT PRN (21:35)
[2017-02-05] MEDS: clonazePAM 0.5 MG TABLET GT SCH (21:47)
[2017-02-05] MEDS: ATORVASTATIN 10 MG TABLET GT SCH (21:47)
[2017-02-05] MEDS: QUETIAPINE FUMARATE 100 MG TABLET PO SCH (21:47)
[2017-02-06] VITALS (7 sets, daily range): BP systolic 87–139; BP diastolic 24–76
--- NOTE | 2017-02-06 | NUR ---
RN NOTES: BLOOD SUGAR CHECKED AT 182 MG/DL. ADMINISTERED 3 UNITS REGULAR INSULIN PER SCALE. GT FEEDING OF GLYTROL RUNNING AT 55 ML/HR. PATIENT TOLERATING FEEDING WELL.
[2017-02-06] MEDS: BLOOD SUGAR DIAGNOSTIC 1 EACH STRIP IN SCH ×5 (00:14→23:16)
[2017-02-06] MEDS: VANCOMYCIN HCL 125 MG/2.5 ML ORAL.SUSP PO SCH ×5 (00:15→23:16)
[2017-02-06] MEDS: INSULIN REGULAR, HUMAN 100 UNIT/ML 3 ML VIAL SQ PRN ×5 (00:28→23:22)
[2017-02-06] MEDS: CIPROFLOXACIN HCL 0.3% 5 ML BOTTLE EACHEYE SCH ×6 (00:43→21:48)
[2017-02-06] MEDS: ALBUTEROL FS 2.5 MG/0.5 ML VIAL.NEB NEB SCH ×4 (01:45→19:11)
[2017-02-06] MEDS: IPRATROPIUM NEB FS 0.5 MG/2.5 ML AMPUL.NEB NEB SCH ×4 (01:45→19:11)
[2017-02-06] MEDS: GABAPENTIN 100 MG CAPSULE GT SCH ×3 (05:34→21:50)
[2017-02-06] MEDS: DIVALPROEX SODIUM 125 MG CAP.SPRINK GT SCH ×3 (05:34→21:49)
--- NOTE | 2017-02-06 06:00 | NUR ---
RN NOTES: BLOOD SUGAR CHECKED AT 183. ADMINISTERED 3 UNITS REGULAR INSULIN PER SLIDING SCALE. ON CONTINUOUS GT FEEDING, PATIENT TOLERATING FEEDING WELL, WITH NO RESIDUALS.
--- NOTE | 2017-02-06 06:38 | NUR ---
CHICLE GRINDER FEEDER CLOSING NOTES: PATIENT IN BED, AOX1, ON MECH VENTILATION, BREATHING EVEN AND UNLABORED. MAINTAINED HOB ELEVATED. SUCTIONED TRACHE AND MOUTH PRN. ON TELE MONITORING: SINUS RHYTHM AT RATE OF 80S. JENELLE MIDLINE INTACT AND PATENT TO FLUSH. GT FEEDING OF GLYTROL RUNNING AT 55 ML/HR, PATIENT TOLERATING FEEDING WELL. NO ACUTE CHANGE IN CONDITION NOTED THROUGH SHIFT. MORNING CARE DONE. TURNED NAD REPOSITIONED PATIENT. BED IN LWOEST NAD LOCKED POSITION, SIDERAILS UPX3. WILL ENDORSE TO AM RN FOR SANJEEV.
[2017-02-06 07:10] LABS: BASOPHILS % (AUTO) 0.1 % (0.0-2.0); EOSINOPHILS # (AUTO) 0.3 /CMM (0.0-0.7); EOSINOPHILS % (AUTO) 2.8 % (0.0-6.0); HEMATOCRIT 26 % (33-45); HEMOGLOBIN 8.6 g/dL (11.5-14.8); LYMPHOCYTES # (AUTO) 2.3 /CMM (0.8-4.8); LYMPHOCYTES % (AUTO) 21.3 % (20.0-44.0); MEAN CORPUSCULAR HEMOGLOBIN 29 PG (26.0-33.0); MEAN CORPUSCULAR HGB CONC 33 g/dl (31.0-36.0); MEAN CORPUSCULAR VOLUME 88 fL (82-100); MONOCYTES # (AUTO) 0.5 /CMM (0.1-1.30); MONOCYTES % (AUTO) 4.3 % (2.0-12.0); NEUTROPHILS # (AUTO) 7.6 /CMM (1.8-8.9); NEUTROPHILS % (AUTO) 71.5 % (43.0-81.0); PLATELET COUNT (AUTO) 366 /CMM (150-450); RDW COEFFICIENT OF VARIATION 16.3 (11.5-15.0); RED BLOOD CELL COUNT(AUTO) 2.98 MIL/uL (4.0-5.2); WHITE BLOOD COUNT (AUTO) 10.7 K/uL (4.3-11.0)
--- NOTE | 2017-02-06 07:10 | NUR ---
PRODUCT COORDINATOR NOTES RECEIVED PATIENT IN BED, SLEEPING, AROUSES EASILY. ON TELE MONITOR SINUS RHYTHM. TRACH IN PLACE, ON VENT. JENELLE MID LINE PATENT AND INTACT, FLUSHES WELL. ON GTUBE FEEDING GLYTROL AT 55ML/HR, TOLERATING WELL. NO SOB, BREATHING EVEN AND NON LABORED. WILL CONT TO MONITOR, 1:1 SITTER AT THE BEDSIDE.
[2017-02-06 07:35] LABS: CALCIUM, SERUM 9.3 mg/dL (8.5-10.1); CREATININE 1.1 mg/dL (0.6-1.3); POTASSIUM 4.1 mmol/L (3.5-5.1)
[2017-02-06] MEDS: FUROSEMIDE 20 MG TABLET GT SCH ×2 (09:00→21:50)
[2017-02-06] MEDS: ISOSORBIDE DINITRATE (10MG) 10 MG TABLET GT SCH ×2 (09:00→22:00)
[2017-02-06] MEDS: FOLIC ACID 1 MG TABLET GT SCH (09:06)
[2017-02-06] MEDS: QUETIAPINE FUMARATE 25 MG TABLET GT SCH ×2 (09:07→16:22)
[2017-02-06] MEDS: OLANZAPINE 5 MG TABLET GT SCH ×2 (09:07→21:49)
[2017-02-06] MEDS: ACIDOPHILUS/BULGARICUS 1 EACH TAB.CHEW PO SCH ×3 (09:07→16:22)
[2017-02-06] MEDS: Z GUARD REMEDY 2 OZ OINT TP SCH ×2 (09:07→21:48)
[2017-02-06] MEDS: ENOXAPARIN SODIUM 40 MG/0.4 ML DISP.SYRIN SQ SCH (09:08)
[2017-02-06] MEDS: ASPIRIN 81 MG TAB.CHEW GT SCH (09:08)
[2017-02-06] MEDS: PANTOPRAZOLE 40 MG/PACK PACK GT SCH ×2 (09:18→16:22)
[2017-02-06] MEDS: PROSOURCE / PROSTAT (PYXIS) 30 ML UDC GT SCH ×2 (09:18→16:22)
[2017-02-06] MEDS: LEVETIRACETAM SOL (5 ML) 100 MG/ML UDC GT SCH ×2 (09:18→21:49)
[2017-02-06] MEDS: INSULIN NPH/REG 70/30 MIX INJ 100 UNIT/ML CARTRIDGE SQ SCH ×2 (09:27→17:28)
[2017-02-06] MEDS: INSULIN NPH, HUMAN ISOPHANE 100 UNIT/ML VIAL SQ SCH ×2 (09:29→21:00)
[2017-02-06] MEDS: LORAZEPAM 1 MG TABLET GT PRN (12:33)
--- NOTE | 2017-02-06 18:20 | NUR ---
SWITCHER CLOSING NOTES PATIENT IN BED, A/O X1 WITH CONTINUED CONFUSION. MAINTAIN SAFETY PRECAUTION. ON TELE MONITOR SINUS RHYTHM HR 83, NO SOB, VENT SETTINGS REMAINS THE SAME. ON GTUBE FEEDING AT 55ML/HR, TOLERATING WELL. ON ANTIBIOTIC WITH NO ADVERSE SIDE EFFECT. TURN AND REPOSITION Q 2 HR. 1:1 AT THE BEDSIDE. AWAITING ACCEPTANCE TO [facility], CM IS AWARE. WILL ENDORSE TO ACTUARIAL SCIENCE TEACHER RN FOR SANJEEV.
--- NOTE | 2017-02-06 19:30 | NUR ---
LEGAL EXECUTIVE OPENING NOTES: RECEIVED PT IN BED AND IS A/OX 1 WITH CONTINUED CONFUSION. PT IS ABLE TO MOUTH WORDS IN [place]. PT IS ON TELE MONITOR. NO SOB NOTED AT THIS TIME. VENT SETTINGS REMAIN THE SAME. G TUBE FEEDING STOPPED AT THIS TIME. PER AM NURSE, IT WAS STOPPED AT 1800. SITTER AT BEDSIDE. PT HAS JENELLE MIDLINE AND IS PATENT AND INTACT. WILL CONTINUE TO MONITOR PT.
[2017-02-06] MEDS: QUETIAPINE FUMARATE 100 MG TABLET PO SCH (21:49)
[2017-02-06] MEDS: ATORVASTATIN 10 MG TABLET GT SCH (21:49)
[2017-02-06] MEDS: clonazePAM 0.5 MG TABLET GT SCH (21:50)
--- NOTE | 2017-02-06 21:50 | NUR ---
MALE INFERTILITY SPECIALIST NOTES: BLOOD SUGAR WAS 63. NOVOLIN 34 UNITS WAS HELD. RESUMED GLYTROL FEEDING AT 55ML/HR VIA G TUBE TO PREVENT BLOOD SUGAR FROM DROPPING. WILL CONTINUE TO MONITOR PT.
--- NOTE | 2017-02-06 22:00 | NUR ---
GENERAL TECHNICIAN NOTES: ISORDIL HELD D/T BP BEING 109/76 HR 89. WILL CONTINUE TO MONITOR PT.
[2017-02-06] MEDS: GLYTROL 1,000 ML BAG GT PRN (22:04)
--- NOTE | 2017-02-06 23:23 | NUR ---
THAI MASSEUR NOTES: BLOOD SUGAR WAS 101. NO INSULIN WAS ADMINISTERED. PT IS ON GLYTROL 55ML/HR VIA G TUBE FEEDING. WILL CONTINUE TO MONITOR PT.
[2017-02-07] VITALS: BP 149/72
[2017-02-07] MEDS: CIPROFLOXACIN HCL 0.3% 5 ML BOTTLE EACHEYE SCH ×6 (00:03→21:41)
[2017-02-07] MEDS: IPRATROPIUM NEB FS 0.5 MG/2.5 ML AMPUL.NEB NEB SCH ×4 (01:09→19:21)
[2017-02-07] MEDS: ALBUTEROL FS 2.5 MG/0.5 ML VIAL.NEB NEB SCH ×4 (01:09→19:21)
[2017-02-07 04:00] VITALS: BP 144/99
[2017-02-07] MEDS: GABAPENTIN 100 MG CAPSULE GT SCH ×3 (04:38→21:44)
[2017-02-07] MEDS: DIVALPROEX SODIUM 125 MG CAP.SPRINK GT SCH ×3 (04:38→21:42)
[2017-02-07] MEDS: BLOOD SUGAR DIAGNOSTIC 1 EACH STRIP IN SCH ×3 (05:27→17:41)
[2017-02-07] MEDS: VANCOMYCIN HCL 125 MG/2.5 ML ORAL.SUSP PO SCH ×3 (05:27→17:42)
[2017-02-07] MEDS: INSULIN REGULAR, HUMAN 100 UNIT/ML 3 ML VIAL SQ PRN ×3 (05:32→17:47)
--- NOTE | 2017-02-07 05:32 | NUR ---
DIRECTOR TELEVISION NEWS NOTES: BLOOD SUGAR WAS 212. 6 UNITS OF INSULIN REGULAR WAS GIVEN. PT ON GLYTROL FEEDING VIA GTUBE AT 55ML/HR. WILL CONTINUE TO MONITOR PT.
[2017-02-07 07:00] LABS: BASOPHILS % (AUTO) 0.4 % (0.0-2.0); EOSINOPHILS # (AUTO) 0.2 /CMM (0.0-0.7); EOSINOPHILS % (AUTO) 2.2 % (0.0-6.0); HEMATOCRIT 26 % (33-45); HEMOGLOBIN 8.4 g/dL (11.5-14.8); LYMPHOCYTES # (AUTO) 3.1 /CMM (0.8-4.8); LYMPHOCYTES % (AUTO) 28.6 % (20.0-44.0); MEAN CORPUSCULAR HEMOGLOBIN 29 PG (26.0-33.0); MEAN CORPUSCULAR HGB CONC 33 g/dl (31.0-36.0); MEAN CORPUSCULAR VOLUME 89 fL (82-100); MONOCYTES # (AUTO) 0.6 /CMM (0.1-1.30); MONOCYTES % (AUTO) 5.9 % (2.0-12.0); NEUTROPHILS # (AUTO) 6.8 /CMM (1.8-8.9); NEUTROPHILS % (AUTO) 62.9 % (43.0-81.0); PLATELET COUNT (AUTO) 374 /CMM (150-450); RED BLOOD CELL COUNT(AUTO) 2.88 MIL/uL (4.0-5.2); WHITE BLOOD COUNT (AUTO) 10.9 K/uL (4.3-11.0)
--- NOTE | 2017-02-07 07:15 | NUR ---
FISH FARM MANAGER CLOSING NOTES: ALL NEEDS WERE ATTENDED AND ANTICIPATED FOR. PT IS IN BED AND IS A/OX 1 WITH CONTINUED CONFUSION. PT IS ABLE TO MOUTH WORDS IN [place]. PT IS ON TELE MONITOR AND IS SR WITH OCCASIONAL PVCS. NO SOB NOTED AT THIS TIME. VENT SETTINGS REMAIN THE SAME: TV 500, AC 14, FIO2 40%, PEEP 0, SHILEY #8. PT ON G TUBE FEEDING AT GLYTROL 55ML/HR. SITTER AT BEDSIDE. PT HAS JENELLE MIDLINE AND IS PATENT AND INTACT. ENDORSED TO AM NURSE FOR SANJEEV.
[2017-02-07 07:26] LABS: CALCIUM, SERUM 9.3 mg/dL (8.5-10.1); MAGNESIUM 1.6 mg/dL (1.8-2.4); PHOSPHORUS 3.6 mg/dL (2.5-4.9); POTASSIUM 3.9 mmol/L (3.5-5.1)
--- NOTE | 2017-02-07 07:35 | NUR ---
RN NOTES RECEIVED PATIENT AWAKE ALERT TO SELF, ABLE TO MOUTH WORDS IN [place], WITH MECHANICAL VENT TOLERATING CURRENT SETTINGS AT THIS TIME. RESPIRATIONS EVEN AND UNLABORED, IN NO APPARENT PAIN OR DISCOMFORT AT THIS TIME, NO FACIAL GRIMACING OR GUARDED MOVEMENT NOTED. ORIENTED NEEDED. IV ACCESS PATENT AND INTACT NO REDNESS OR INFILTRATION NOTED. KEPT CLEAN DRY AND COMFORTABLE, CALL LIGHT WITHIN EASY REACH, WILL CONTINUE TO MONITOR
[2017-02-07 08:00] VITALS: BP 114/56
[2017-02-07] MEDS: FOLIC ACID 1 MG TABLET GT SCH (09:58)
[2017-02-07] MEDS: ACIDOPHILUS/BULGARICUS 1 EACH TAB.CHEW PO SCH ×3 (09:58→17:42)
[2017-02-07] MEDS: ASPIRIN 81 MG TAB.CHEW GT SCH (09:59)
[2017-02-07] MEDS: OLANZAPINE 5 MG TABLET GT SCH ×2 (09:59→21:43)
[2017-02-07] MEDS: ISOSORBIDE DINITRATE (10MG) 10 MG TABLET GT SCH ×2 (09:59→21:44)
[2017-02-07] MEDS: PANTOPRAZOLE 40 MG/PACK PACK GT SCH ×2 (09:59→17:42)
[2017-02-07] MEDS: FUROSEMIDE 20 MG TABLET GT SCH ×2 (09:59→21:42)
[2017-02-07] MEDS: LEVETIRACETAM SOL (5 ML) 100 MG/ML UDC GT SCH ×2 (09:59→21:44)
[2017-02-07] MEDS: QUETIAPINE FUMARATE 25 MG TABLET GT SCH ×2 (09:59→17:42)
[2017-02-07] MEDS: PROSOURCE / PROSTAT (PYXIS) 30 ML UDC GT SCH ×2 (10:00→17:42)
[2017-02-07] MEDS: ENOXAPARIN SODIUM 40 MG/0.4 ML DISP.SYRIN SQ SCH (10:44)
[2017-02-07] MEDS: INSULIN NPH/REG 70/30 MIX INJ 100 UNIT/ML CARTRIDGE SQ SCH ×2 (10:48→17:46)
[2017-02-07] MEDS: INSULIN NPH, HUMAN ISOPHANE 100 UNIT/ML VIAL SQ SCH ×2 (10:48→21:00)
[2017-02-07] MEDS: Z GUARD REMEDY 2 OZ OINT TP SCH ×2 (10:50→21:41)
[2017-02-07] MEDS: Magnesium 1GM/D5W 100ML PREMIX 100 ML IV SCH ×2 (12:31→13:36)
--- NOTE | 2017-02-07 14:19 | NUR ---
RN NOTES PATIENT WITH DISCHARGE ORDERS, SPOKE TO CM AND [facility] PT AWAITING PLACEMENT WILL CONTINUE TO MONITOR AND ASSIST WITH DISCHARGE PROCESS IT APPLIES
--- NOTE | 2017-02-07 18:56 | NUR ---
RN NOTES PATIENT ASLEEP COMFORTABLY IN BED, ABLE TO MOUTH WORDS IN OCCIT[place], WITH MECHANICAL VENT TOLERATING CURRENT SETTINGS AT THIS TIME. RESPIRATIONS EVEN AND UNLABORED, IN NO APPARENT PAIN OR DISCOMFORT AT THIS TIME, NO FACIAL GRIMACING OR GUARDED MOVEMENT NOTED. ORIENTED NEEDED. IV ACCESS PATENT AND INTACT NO REDNESS OR INFILTRATION NOTED. KEPT CLEAN DRY AND COMFORTABLE, CALL LIGHT WITHIN EASY REACH, WILL CONTINUE TO MONITOR AND ENDORSE FOR CONTINUITY OF CARE
--- NOTE | 2017-02-07 19:30 | NUR ---
RN INITIAL NOTES RECEIVED ENDORSEMENT FROM PREVIOUS SHIFT, PATIENT WITH NO ACUTE DISTRESS. PATIENT IS IN BED SLEEPING, EASILY AROUSABLE WITH VERBAL AND TACTILE STIMULI. PATIENT WITH NO DISTRESS. ON VENT VIA TRACH, C/D/I, NO DISCHARGE NOTED. TOLERATING MECH VENT SETTINGS WELL, SATURATION AT 100%, AIRWAY SUCTIONED NEEDED AND KEPT PATENT. PATIENT IS SR ON TELE WITH HR OF 86. 1:1 SITTER AT BEDSIDE FOR SAFETY WITH BEHAVIOR KEPT AT MINIMUM, EFFECTIVE. GTF ORDERED, NO GASTRIC RESIDUAL NOTED, HOB ELEVATED. JENELLE MIDLINE FLUSHED AND PATENT, SL. PATIENT'S NEEDS ANTICIPATED AND MET. SAFETY AND COMFORT ENSURED. BED IN LOW AND LOCKED POSITION. CALL LIGHT IN REACH. WILL MONITOR.
[2017-02-07] MEDS: clonazePAM 0.5 MG TABLET GT SCH (21:44)
[2017-02-07] MEDS: QUETIAPINE FUMARATE 100 MG TABLET PO SCH (21:45)
[2017-02-07] MEDS: ATORVASTATIN 10 MG TABLET GT SCH (21:45)
[2017-02-07] MEDS: GLYTROL 1,000 ML BAG GT PRN (21:55)
[2017-02-07 22:00] VITALS: BP 112/57
[2017-02-08] VITALS: BP 94/54
[2017-02-08] MEDS: VANCOMYCIN HCL 125 MG/2.5 ML ORAL.SUSP PO SCH ×4 (00:24→17:23)
[2017-02-08] MEDS: BLOOD SUGAR DIAGNOSTIC 1 EACH STRIP IN SCH ×4 (00:24→17:20)
[2017-02-08] MEDS: INSULIN REGULAR, HUMAN 100 UNIT/ML 3 ML VIAL SQ PRN ×4 (00:25→17:22)
[2017-02-08] MEDS: CIPROFLOXACIN HCL 0.3% 5 ML BOTTLE EACHEYE SCH ×6 (00:26→20:33)
[2017-02-08] MEDS: IPRATROPIUM NEB FS 0.5 MG/2.5 ML AMPUL.NEB NEB SCH ×4 (01:04→19:18)
[2017-02-08] MEDS: ALBUTEROL FS 2.5 MG/0.5 ML VIAL.NEB NEB SCH ×4 (01:04→19:19)
[2017-02-08 04:00] VITALS: BP 104/44
[2017-02-08] MEDS: DIVALPROEX SODIUM 125 MG CAP.SPRINK GT SCH ×3 (05:14→20:35)
[2017-02-08] MEDS: GABAPENTIN 100 MG CAPSULE GT SCH ×3 (05:14→20:35)
--- NOTE | 2017-02-08 06:44 | NUR ---
RN CLOSING NOTES PATIENT IN BED, SLEEPING COMFORTABLY. PATIENT WITH NO ACUTE DISTRESS, NO ACUTE CHANGE IN CONDITION OBSERVED OVERNIGHT. AIRWAY SUCTIONED NEEDED. REMAINS SR ON TELE WITH OCCASIONAL PVCs, HR IN THE 80s. GTF INFUSING WELL, NO GASTRIC RESIDUAL NOTED, TOLERATED WELL. PATIENT TURNED AND REPOSITIONED. KEPT CLEAN AND DRY. PATIENT'S BEHAVIOR KEPT AT MINIMUM, 1:1 SITTER AT BEDSIDE AT ALL TIMES, REORIENTED AND REASSURED NEEDED WITH GOOD HELP. ALL DUE MEDS GIVEN ORDERED. PATIENT'S NEEDS ANTICIPATED AND MET. WILL ENDORSE ACCORDINGLY FOR CONTINUITY OF CARE.
--- NOTE | 2017-02-08 07:13 | NUR ---
TELE-RN OPENING NOTES PATIENT RECEIVED COMFORTABLY ASLEEP IN BED WITH SITTER AT BEDSIDE. ON MECHANICAL VENTILATOR AT PRESCRIBED PARAMETERS, TOLERATING SETTINGS WELL WITH NO SOB NOTED. ON TELE-MONITORING WITH CURRENT READING OF SR WITH HR OF 74. FEEDING OF GLYTROL @ 55 ML/HR VIA G-TUBE IN PROGRESS, TOLERATING WELL. ASPIRATION PRECAUTIONS MAINTAINED. JENELLE MIDLINE INTACT AND PATENT, FLUSHES WELL. BED IN LOW AND LOCKED POSITION WITH SIDE-RAILS UP APPROPRIATE. CALL LIGHT IN REACH. ALL SAFETY MEASURES IN PLACED. WILL CONTINUE TO MONITOR PT ACCORDINGLY.
[2017-02-08 07:37] LABS: CREATININE 1.3 mg/dL (0.6-1.3); MAGNESIUM 1.7 mg/dL (1.8-2.4); POTASSIUM 3.7 mmol/L (3.5-5.1)
[2017-02-08 08:00] VITALS: BP 134/68
[2017-02-08] MEDS: LEVETIRACETAM SOL (5 ML) 100 MG/ML UDC GT SCH ×2 (09:08→20:33)
[2017-02-08] MEDS: FUROSEMIDE 20 MG TABLET GT SCH ×2 (09:08→20:35)
[2017-02-08] MEDS: PROSOURCE / PROSTAT (PYXIS) 30 ML UDC GT SCH ×2 (09:08→16:10)
[2017-02-08] MEDS: ASPIRIN 81 MG TAB.CHEW GT SCH (09:09)
[2017-02-08] MEDS: FOLIC ACID 1 MG TABLET GT SCH (09:09)
[2017-02-08] MEDS: ACIDOPHILUS/BULGARICUS 1 EACH TAB.CHEW PO SCH ×3 (09:09→16:12)
[2017-02-08] MEDS: PANTOPRAZOLE 40 MG/PACK PACK GT SCH ×2 (09:09→16:10)
[2017-02-08] MEDS: ISOSORBIDE DINITRATE (10MG) 10 MG TABLET GT SCH ×2 (09:09→20:36)
[2017-02-08] MEDS: OLANZAPINE 5 MG TABLET GT SCH ×2 (09:09→20:35)
[2017-02-08] MEDS: QUETIAPINE FUMARATE 25 MG TABLET GT SCH ×2 (09:09→16:10)
[2017-02-08] MEDS: Z GUARD REMEDY 2 OZ OINT TP SCH ×2 (09:11→20:37)
[2017-02-08] MEDS: ENOXAPARIN SODIUM 40 MG/0.4 ML DISP.SYRIN SQ SCH (09:14)
[2017-02-08] MEDS: INSULIN NPH/REG 70/30 MIX INJ 100 UNIT/ML CARTRIDGE SQ SCH ×2 (09:14→17:22)
[2017-02-08] MEDS: Magnesium 1GM/D5W 100ML PREMIX 100 ML IV SCH ×2 (10:21→11:16)
[2017-02-08] MEDS: INSULIN NPH, HUMAN ISOPHANE 100 UNIT/ML VIAL SQ SCH ×2 (10:28→21:00)
[2017-02-08 12:00] VITALS: BP 137/63
--- NOTE | 2017-02-08 12:29 | NUR ---
RN NOTES PT NOTED WITH LOW MG LEVEL OF 1.7, MD AWARE. REPLACED WITH 1GM/100ML D5W IV X 2 DOSES AND TO CHECK MG LEVEL TOMORROW. WILL CONTINUE TO MONITOR
--- NOTE | 2017-02-08 19:15 | NUR ---
TELE-RN OPENING NOTES PATIENT ASLEEP IN BED WITH DAUGHTER AT BEDSIDE. ALERT AND ORIENTED X 1, UN-ABLE TO MAKE NEEDS KNOWN. 1:1 SITTER AT BEDSIDE. NO SIGNIFICANT CHANGES NOTED THROUGHOUT THE DAY. CONTINUES ON MECHANICAL VENTILATOR AT PRESCRIBED SETTINGS, NO SOB NOTED. ON TELE-MONITORING WITH CURRENT READING OF SR WITH HR OF THE 80'S. FEEDING OF GLYTROL @ 55 ML/HR VIA G-TUBE X 18HRS DAILY ON HOLD AT THIS TIME AND ENDORSED TO TURN IT ON AT 2200. ASPIRATION PRECAUTIONS MAINTAINED. JENELLE MIDLINE INTACT AND PATENT, FLUSHES WELL. BED IN LOW AND LOCKED POSITION WITH SIDE-RAILS UP APPROPRIATE. CALL LIGHT IN REACH. ALL SAFETY MEASURES IN PLACED. ALL NEEDS AND CARE PROVIDED WELL. ENDORSED TO DEMAND EQUIPMENT REPAIRER NURSE FOR SANJEEV. .
[2017-02-08 20:00] VITALS: BP 146/64
--- NOTE | 2017-02-08 20:00 | NUR ---
POWDER SHOVELER NOTES PATIENT RECEIVED SLEEPING IN BED, ON MECH VENT WITH SR 86, ON TELE MONITORING. A & O X 1, NON VERBAL. NO S/S OF PAIN, ACUTE DISTRESS OR DISCOMFORT NOTED. GT FEEDING OFF ACCORDING TO THE ROUTINE SCHEDULE, WILL TURN IT BACK ON AT 2200. IN SEMI WORRELL POSITION. MIDLINE TO JENELLE INTACT PATENT. BED IN LOW LOCKED POSITION. CALL LIGHT WITHIN REACH. ON 1:1 SITTER. CONTINUING TO MONITOR.
--- NOTE | 2017-02-08 20:25 | NUR ---
RN NOTES CALLED DR.SAM GUTIERREZ TO INFORMED HIM THAT PT DOESN'T WANT TO LEAVE AGAIN , PT. WAS DISCHARGE SINCE YESTERDAY AND THEY ALREADY LET HIM STAY YESTERDAY AND PT DOESN'T WANT TO GO TO HIS FAMILY.. WE ALSO READ ON EXHAUST WORKER NOTES PT. REFUSED TO GO TO NURSING HOME. DR. GUTIERREZ DID NOT LET HIM STAY FOR ONE MORE DAY BECAUSE IF PT REFUSED TO GO TO NURSING HOME WE CANNOT SO ANYTHING ABOUT IT Addendum: 02/08/17 at 2037 by ADAN ZHOU RN WRONG PT. WRONG NOTES
--- NOTE | 2017-02-08 22:03 | NUR ---
CASE WORK AIDE NOTES WITH HELD NOVOLIN N INSULIN PER DR. ZHANG'S ORDER DUE TO BS BEING 107MG/DL. GT FEEDING OFF DUE TO SCHEDULED ORDER. WILL MONITOR CLOSELY.
[2017-02-08] MEDS: GLYTROL 1,000 ML BAG GT PRN (22:09)
[2017-02-08] MEDS: clonazePAM 0.5 MG TABLET GT SCH (22:22)
[2017-02-08] MEDS: QUETIAPINE FUMARATE 100 MG TABLET PO SCH (22:22)
[2017-02-08] MEDS: ATORVASTATIN 10 MG TABLET GT SCH (22:22)
[2017-02-09] VITALS: BP 119/68
[2017-02-09] MEDS: BLOOD SUGAR DIAGNOSTIC 1 EACH STRIP IN SCH ×4 (00:10→17:32)
[2017-02-09] MEDS: VANCOMYCIN HCL 125 MG/2.5 ML ORAL.SUSP PO SCH ×4 (00:12→17:35)
[2017-02-09] MEDS: INSULIN REGULAR, HUMAN 100 UNIT/ML 3 ML VIAL SQ PRN ×4 (00:19→17:46)
[2017-02-09] MEDS: IPRATROPIUM NEB FS 0.5 MG/2.5 ML AMPUL.NEB NEB SCH ×4 (01:00→20:16)
[2017-02-09] MEDS: ALBUTEROL FS 2.5 MG/0.5 ML VIAL.NEB NEB SCH ×4 (01:00→20:16)
[2017-02-09] MEDS: CIPROFLOXACIN HCL 0.3% 5 ML BOTTLE EACHEYE SCH ×6 (01:00→21:07)
[2017-02-09] MEDS: DIVALPROEX SODIUM 125 MG CAP.SPRINK GT SCH ×3 (04:29→21:06)
[2017-02-09] MEDS: GABAPENTIN 100 MG CAPSULE GT SCH ×3 (04:29→21:05)
--- NOTE | 2017-02-09 06:29 | NUR ---
MASONRY SUPERVISOR CLOSING NOTES PATIENT SLEPT WELL AT NIGHT. ON [facility] WITH SETTINGS ORDERED. ON TELE MONITORING WITH SR 95. NO S/S OF PAIN, NO SOB, NO ACUTE DISTRESS OR DISCOMFORT NOTED. BREATHING TREATMENT GIVEN BY RT SCHEDULED. REPOSITIONED. KEPT CLEAN & DRY. ON 1:1 SITTER MIDLINE ACCESS TO JENELLE, INTACT PATENT. ON GT FEEDING AT 55ML/HR. NO S/S OF ASPIRATION NOTED. HOB ELEVATED. ALL DUE MEDS GIVEN & TOLERATED WELL. ALL NEEDS MET. BED IN LOW LOCKED POSITION. CALL LIGHT WITHIN REACH. WILL ENDORSE TO AM SHIFT.
[2017-02-09 06:38] LABS: BASOPHILS # (AUTO) 0.1 /CMM (0.0-0.2); BASOPHILS % (AUTO) 0.5 % (0.0-2.0); EOSINOPHILS # (AUTO) 0.2 /CMM (0.0-0.7); EOSINOPHILS % (AUTO) 1.6 % (0.0-6.0); HEMATOCRIT 25 % (33-45); HEMOGLOBIN 8.4 g/dL (11.5-14.8); LYMPHOCYTES # (AUTO) 3.2 /CMM (0.8-4.8); LYMPHOCYTES % (AUTO) 24.9 % (20.0-44.0); MEAN CORPUSCULAR HEMOGLOBIN 30 PG (26.0-33.0); MEAN CORPUSCULAR HGB CONC 34 g/dl (31.0-36.0); MEAN CORPUSCULAR VOLUME 87 fL (82-100); NEUTROPHILS # (AUTO) 8.3 /CMM (1.8-8.9); PLATELET COUNT (AUTO) 318 /CMM (150-450); RDW COEFFICIENT OF VARIATION 16.3 (11.5-15.0); RED BLOOD CELL COUNT(AUTO) 2.82 MIL/uL (4.0-5.2); WHITE BLOOD COUNT (AUTO) 12.8 K/uL (4.3-11.0)
[2017-02-09 06:58] LABS: CALCIUM, SERUM 8.9 mg/dL (8.5-10.1); CREATININE 1.4 mg/dL (0.6-1.3); MAGNESIUM 1.9 mg/dL (1.8-2.4); PHOSPHORUS 4.4 mg/dL (2.5-4.9); POTASSIUM 3.9 mmol/L (3.5-5.1)
--- NOTE | 2017-02-09 07:30 | NUR ---
PATIENT ALERT AND ORIENTED X1. RESPIRATIONS EVEN AND UNLABORED. ON VENT SETTINGS. TRACH IN SECURE AND PROPER POSITION. VS STABLE. NO RESPIRATORY DISTRESS NOTED. G TUBE FEEDING INFUSING AT 55 ML/HR. SITTER AT BEDSIDE. BED IN LOW POSITION. SIDE RAILSX2. CALL LIGHT WITHIN REACH. CONTINUE TO MONITOR.
[2017-02-09 08:00] VITALS: BP 126/58
[2017-02-09] MEDS: ACIDOPHILUS/BULGARICUS 1 EACH TAB.CHEW PO SCH ×3 (09:39→17:35)
[2017-02-09] MEDS: QUETIAPINE FUMARATE 25 MG TABLET GT SCH ×2 (09:39→17:36)
[2017-02-09] MEDS: OLANZAPINE 5 MG TABLET GT SCH ×2 (09:40→21:05)
[2017-02-09] MEDS: FOLIC ACID 1 MG TABLET GT SCH (09:40)
[2017-02-09] MEDS: ASPIRIN 81 MG TAB.CHEW GT SCH (09:40)
[2017-02-09] MEDS: FUROSEMIDE 20 MG TABLET GT SCH ×2 (09:40→21:06)
[2017-02-09] MEDS: ISOSORBIDE DINITRATE (10MG) 10 MG TABLET GT SCH ×2 (09:41→21:07)
[2017-02-09] MEDS: LEVETIRACETAM SOL (5 ML) 100 MG/ML UDC GT SCH ×2 (09:42→21:06)
[2017-02-09] MEDS: PANTOPRAZOLE 40 MG/PACK PACK GT SCH ×2 (09:42→17:35)
[2017-02-09] MEDS: ENOXAPARIN SODIUM 40 MG/0.4 ML DISP.SYRIN SQ SCH (09:43)
[2017-02-09] MEDS: PROSOURCE / PROSTAT (PYXIS) 30 ML UDC GT SCH ×2 (09:44→17:35)
[2017-02-09] MEDS: INSULIN NPH, HUMAN ISOPHANE 100 UNIT/ML VIAL SQ SCH ×2 (09:50→22:31)
[2017-02-09] MEDS: Z GUARD REMEDY 2 OZ OINT TP SCH ×2 (09:53→21:08)
[2017-02-09] MEDS: INSULIN NPH/REG 70/30 MIX INJ 100 UNIT/ML CARTRIDGE SQ SCH ×2 (09:58→17:38)
[2017-02-09] MEDS ORDERED: QUETIAPINE FUMARATE 25 MG TABLET PO PRN (14:00)
--- NOTE | 2017-02-09 19:27 | NUR ---
RN CLOSING NOTES Addendum: 02/09/17 at 1938 by DARRYL CHOUDHARY RN PATIENT ALERT AND ORIENTED X1. RESPIRATIONS EVEN AND UNLABORED. ON VENT SETTINGS. TRACH IN SECURE AND PROPER POSITION. VS STABLE. NO RESPIRATORY DISTRESS NOTED. G TUBE FEEDING INFUSING AT 55 ML/HR. SITTER AT BEDSIDE. BED IN LOW POSITION. SIDE RAILSX2. CALL LIGHT WITHIN REACH. ENDORSED TO HELPER COORDINATORLIVE GAMES DEALER FOR CONTINUITY OF CARE.
[2017-02-09 20:00] VITALS: BP 132/98
--- NOTE | 2017-02-09 20:00 | NUR ---
CASING SOAKER NOTES PATIENT RECEIVED LAYING IN BED AWAKE, A & O X 1. ON 1:1 SITTER. TELE MONITORING WITH SR 88. ON [facility] VENT WITH SETTINGS ORDERED. NO SOB, RESP EVEN & NONLABORED. MIDLINE TO JENELLE, INTACT PATENT. GT FEEDING OFF SCHEDULED WILL TURN IT BACK ON AT 2200. CHECKED THE RESIDUAL & PATENCY. BED IN LOW LOCKED POSITION. CALL LIGHT WITHIN REACH. WILL MONITOR CLOSELY.
[2017-02-09] MEDS: clonazePAM 0.5 MG TABLET GT SCH (21:51)
[2017-02-09] MEDS: QUETIAPINE FUMARATE 100 MG TABLET PO SCH (21:51)
[2017-02-09] MEDS: ATORVASTATIN 10 MG TABLET GT SCH (21:52)
[2017-02-09] MEDS: GLYTROL 1,000 ML BAG GT PRN (21:52)
[2017-02-10] VITALS: BP 149/53
[2017-02-10] MEDS: VANCOMYCIN HCL 125 MG/2.5 ML ORAL.SUSP PO SCH ×4 (00:16→17:46)
[2017-02-10] MEDS: BLOOD SUGAR DIAGNOSTIC 1 EACH STRIP IN SCH ×4 (00:16→17:41)
[2017-02-10] MEDS: INSULIN REGULAR, HUMAN 100 UNIT/ML 3 ML VIAL SQ PRN ×3 (00:31→12:31)
[2017-02-10] MEDS: CIPROFLOXACIN HCL 0.3% 5 ML BOTTLE EACHEYE SCH ×6 (00:32→22:08)
--- NOTE | 2017-02-10 02:10 | NUR ---
RN CARDIAC REHAB NOTES PATIENT SLEEPING COMFORTABLY IN SEMI WORRELL POSITION. SCHEDULED MEDS GIVEN ORDERED, TOLERATED WELL. ON TELE MONITORING WITH SR 90. NO ACUTE DISTRESS, NO DISCOMFORT NOTED. REPOSITIONED. KEPT CLEAN & DRY. ON [facility] VENT WITH SETTINGS ORDERED. 1:1 SITTER OBSERVING CLOSELY. CALL LIGHT WITHIN REACH.
[2017-02-10] MEDS: ALBUTEROL FS 2.5 MG/0.5 ML VIAL.NEB NEB SCH ×4 (02:17→19:51)
[2017-02-10] MEDS: IPRATROPIUM NEB FS 0.5 MG/2.5 ML AMPUL.NEB NEB SCH ×4 (02:17→19:51)
[2017-02-10 03:22] VITALS: BP 133/56
[2017-02-10] MEDS: GABAPENTIN 100 MG CAPSULE GT SCH ×3 (05:02→21:56)
[2017-02-10] MEDS: DIVALPROEX SODIUM 125 MG CAP.SPRINK GT SCH ×3 (05:02→21:54)
--- NOTE | 2017-02-10 06:45 | NUR ---
EATING DISORDER SPECIALIST NOTES PATIENT SLEPT INTERMITTENTLY. ON TELE MONITORING WITH SR 87, RESP EVEN & NON LABORED. ON [facility] VENT SETTINGS ORDERED, TOLERATED WELL. IV ACCESS NAM JENELLE INTACT PATENT. REPOSITIONED, KEPT CLEAN & DRY. SUCTIONED NEEDED. IN MODERATE SEMI WORRELL POSITION FOR EASY BREATHING & ASPIRATION PRECAUTIONS. ON GTF, GLYTROL AT 55 ML/HR. TOLERATED WELL. GT RESIDUAL & PATENCY CHECKED. ALL DUE MEDS GIVEN VIA GT. ALL NEEDS MET. NO SANJEEV NOTED. BED IN LOW LOCKED POSITION. CALL LIGHT WITHIN REACH. WILL ENDORSE TO AM SHIFT.
--- NOTE | 2017-02-10 07:30 | NUR ---
RN NOTES PATIENT ALERT AND ORIENTED X1. RESPIRATIONS EVEN AND UNLABORED. ON VENT SETTINGS. TRACH IN SECURE AND PROPER POSITION. VS STABLE. NO RESPIRATORY DISTRESS NOTED. G TUBE FEEDING INFUSING AT 55 ML/HR. TOLERATING WELL. IV ACCESS PATENT AND INTACT. SITTER AT BEDSIDE. BED IN LOW POSITION. SIDE RAILSX2. CALL LIGHT WITHIN REACH. CONTINUE TO MONITOR.
[2017-02-10 08:00] VITALS: BP 94/41
[2017-02-10] MEDS: ISOSORBIDE DINITRATE (10MG) 10 MG TABLET GT SCH ×2 (09:00→21:00)
[2017-02-10] MEDS: FUROSEMIDE 20 MG TABLET GT SCH ×2 (09:00→21:56)
[2017-02-10] MEDS: ACIDOPHILUS/BULGARICUS 1 EACH TAB.CHEW PO SCH ×3 (09:01→17:44)
[2017-02-10] MEDS: PANTOPRAZOLE 40 MG/PACK PACK GT SCH ×2 (09:01→17:44)
[2017-02-10] MEDS: FOLIC ACID 1 MG TABLET GT SCH (09:01)
[2017-02-10] MEDS: OLANZAPINE 5 MG TABLET GT SCH ×2 (09:01→21:56)
[2017-02-10] MEDS: LEVETIRACETAM SOL (5 ML) 100 MG/ML UDC GT SCH ×2 (09:01→21:54)
[2017-02-10] MEDS: PROSOURCE / PROSTAT (PYXIS) 30 ML UDC GT SCH ×2 (09:02→17:44)
[2017-02-10] MEDS: ASPIRIN 81 MG TAB.CHEW GT SCH (09:02)
[2017-02-10] MEDS: QUETIAPINE FUMARATE 25 MG TABLET GT SCH ×2 (09:02→17:44)
[2017-02-10] MEDS: Z GUARD REMEDY 2 OZ OINT TP PRN ×3 (09:05→09:41)
[2017-02-10] MEDS: ENOXAPARIN SODIUM 40 MG/0.4 ML DISP.SYRIN SQ SCH (09:05)
[2017-02-10] MEDS: INSULIN NPH/REG 70/30 MIX INJ 100 UNIT/ML CARTRIDGE SQ SCH ×2 (09:11→17:00)
[2017-02-10] MEDS: INSULIN NPH, HUMAN ISOPHANE 100 UNIT/ML VIAL SQ SCH ×2 (09:33→21:56)
[2017-02-10] MEDS: Z GUARD REMEDY 2 OZ OINT TP SCH ×2 (09:44→21:00)
[2017-02-10 13:20] VITALS: BP_SYST 80
--- NOTE | 2017-02-10 17:45 | NUR ---
RN NOTES BLOOD SUGAR NOTED AT 91. INSULIN COVERAGE HELD. CONTINUED ON TUBE FEEDING ORDERED. CONTINUE TO MONITOR.
--- NOTE | 2017-02-10 18:50 | NUR ---
RN NOTES PATIENT ALERT AND ORIENTED X1. RESPIRATIONS EVEN AND UNLABORED. ON VENT SETTINGS. TRACH IN SECURE AND PROPER POSITION. VS STABLE. NO RESPIRATORY DISTRESS NOTED. G TUBE FEEDING INFUSING AT 45 ML/HR. TOLERATING WELL. IV ACCESS PATENT AND INTACT. SITTER AT BEDSIDE. BED IN LOW POSITION. SIDE RAILSX2. CALL LIGHT WITHIN EASY REACH. WILL CONTINUE TO MONITOR AND ENDORSE TO COMPLIANCE INTERNACCOUNTS PAYABLE REPRESENTATIVE FOR CONTINUITY OF CARE.
--- NOTE | 2017-02-10 19:20 | NUR ---
TELE/RN NOTES RECEIVED PT. LYING IN BED. AWAKE ALERT AND ORIENTED TO SELF. PT. IS TRACH/VENT DEPENDENT. PT. HAS SHILEY #8 TRACH PRESENT AND INTACT. BREATHING EVEN AND UNLABORED. NO SOB, RESPIRATORY DISTRESS OR S/S OF PAIN NOTED AT THIS TIME. PT. WITH EXTERNAL OXYGEN EQUIPMENT TECHNICIAN PRESENT AND INTACT. CURRENT RHYTHM = SINUS RHYTHM HR 100. PT. WITH RIGHT UPPER ARM MIDLINE PRESENT, PATENT AND INTACT. PT. WITH G-TUBE PRESENT, PATENT AND INTACT ADMINISTERING TO PT. GLYTROL @ 45 ML/HR. PT. TOLERATING WELL. NO RESIDUAL NOTED AT THIS TIME. PT. WITH SITTER PRESENT AT BEDSIDE. BED LOCKED AND IN LOWEST POSITION, SIDE RAILS UP X3, CALL LIGHT WITHIN REACH, WILL CONTINUE TO MONITOR.
--- NOTE | 2017-02-10 19:52 | NUR ---
PT RCVD ON [facility] VENT WITH NOTED SETTINGS . VENT ALARM WORKING AND AUDIBLE, VENT PLUGGED INTO RED OUTLET. TRACH SECURE IN AND IN PROPER POSITION. CUFF CHECKED MOTORCYCLE DELIVERY DRIVER. SXN MODERATE AMOUNT OF PALE YELLOW SECRETIONS . NO RESPIRATORY DISTRESS AT THIS TIME .BREATHING TX'S GIVEN ORDERED, NO ADVERSE REACTION NOTED. AMBU BAG AT [facility], WILL CONTINUE TO MONITOR THE PT.
[2017-02-10 20:00] VITALS: BP 111/54
[2017-02-10] MEDS: ATORVASTATIN 10 MG TABLET GT SCH (21:54)
[2017-02-10] MEDS: clonazePAM 0.5 MG TABLET GT SCH (21:56)
[2017-02-10] MEDS: QUETIAPINE FUMARATE 100 MG TABLET PO SCH (21:56)
[2017-02-11] VITALS: BP 92/60
[2017-02-11] MEDS: BLOOD SUGAR DIAGNOSTIC 1 EACH STRIP IN SCH ×4 (00:17→17:05)
[2017-02-11] MEDS: VANCOMYCIN HCL 125 MG/2.5 ML ORAL.SUSP PO SCH ×4 (00:17→17:02)
[2017-02-11] MEDS: INSULIN REGULAR, HUMAN 100 UNIT/ML 3 ML VIAL SQ PRN ×4 (00:19→17:07)
[2017-02-11] MEDS: GLYTROL 1,000 ML BAG GT PRN (01:24)
[2017-02-11] MEDS: CIPROFLOXACIN HCL 0.3% 5 ML BOTTLE EACHEYE SCH ×6 (01:25→21:09)
[2017-02-11] MEDS: IPRATROPIUM NEB FS 0.5 MG/2.5 ML AMPUL.NEB NEB SCH ×4 (02:10→19:55)
[2017-02-11] MEDS: ALBUTEROL FS 2.5 MG/0.5 ML VIAL.NEB NEB SCH ×4 (02:10→19:56)
[2017-02-11 04:00] VITALS: BP 94/51
[2017-02-11] MEDS: DIVALPROEX SODIUM 125 MG CAP.SPRINK GT SCH ×3 (05:45→21:06)
[2017-02-11] MEDS: GABAPENTIN 100 MG CAPSULE GT SCH ×3 (05:45→21:07)
--- NOTE | 2017-02-11 06:27 | NUR ---
TELE/RN NOTES PT. IS LYING IN BED RESTING. PT. IS TRACH/VENT DEPENDENT. PT. HAS SHILEY #8 TRACH PRESENT AND INTACT. BREATHING EVEN AND UNLABORED. NO SOB, RESPIRATORY DISTRESS OR S/S OF PAIN NOTED AT THIS TIME. PT. WITH EXTERNAL ESCALATOR MECHANIC PRESENT AND INTACT. CURRENT RHYTHM = SINUS RHYTHM HR 86. PT. WITH RIGHT UPPER ARM MIDLINE PRESENT, PATENT AND INTACT. PT. WITH G-TUBE PRESENT, PATENT AND INTACT ADMINISTERING TO PT. GLYTROL @ 45 ML/HR. PT. TOLERATING WELL. NO RESIDUAL NOTED AT THIS TIME AND THROUGHOUT SHIFT. PT. WITH 1:1 SITTER PRESENT AT BEDSIDE. ALL PT. NEEDS MET. PT. OFFLOADED. TURNED AND REPOSITIONED Q2H AND NEEDED. BED LOCKED AND IN LOWEST POSITION, SIDE RAILS UP X3, CALL LIGHT WITHIN REACH, WILL ENDORSE TO DAYSTNFT NURSE FOR CONTINUITY OF CARE.
--- NOTE | 2017-02-11 07:30 | NUR ---
MARKETING INFORMATION MANAGER NOTES PATIENT IN BED RESTING QUIETLY, NO S/SX OF DISTRESS, ON VENT AND TOLERATING CURRENT SETTINGS WELL, NO SOB NOTED, HOB ELEVATED, GTF ONGOING, NO RESIDUAL NOTED, PLACEMENT VERIFIED, MIDLINE PATENT AND FLUSHES WELL, 1:1 SITTER AT BEDSIDE, NEEDS ATTENDED AND MET, TURNED AND REPOSITIONED, CALL LIGHT WITHIN REACH, SAFETY MEASURES IN PLACED, WILL CONTINUE TO MONITOR.
[2017-02-11 08:00] VITALS: BP 130/60
[2017-02-11] MEDS: ACIDOPHILUS/BULGARICUS 1 EACH TAB.CHEW PO SCH ×3 (09:19→16:55)
[2017-02-11] MEDS: OLANZAPINE 5 MG TABLET GT SCH ×2 (09:19→21:07)
[2017-02-11] MEDS: LEVETIRACETAM SOL (5 ML) 100 MG/ML UDC GT SCH ×2 (09:19→21:06)
[2017-02-11] MEDS: FUROSEMIDE 20 MG TABLET GT SCH ×2 (09:19→21:07)
[2017-02-11] MEDS: ISOSORBIDE DINITRATE (10MG) 10 MG TABLET GT SCH ×2 (09:19→21:07)
[2017-02-11] MEDS: FOLIC ACID 1 MG TABLET GT SCH (09:19)
[2017-02-11] MEDS: ASPIRIN 81 MG TAB.CHEW GT SCH (09:19)
[2017-02-11] MEDS: ENOXAPARIN SODIUM 40 MG/0.4 ML DISP.SYRIN SQ SCH (09:19)
[2017-02-11] MEDS: QUETIAPINE FUMARATE 25 MG TABLET GT SCH ×2 (09:20→16:55)
[2017-02-11] MEDS: Z GUARD REMEDY 2 OZ OINT TP SCH ×2 (09:20→21:08)
[2017-02-11] MEDS: PANTOPRAZOLE 40 MG/PACK PACK GT SCH ×2 (09:20→16:55)
[2017-02-11] MEDS: PROSOURCE / PROSTAT (PYXIS) 30 ML UDC GT SCH ×2 (09:20→16:54)
[2017-02-11] MEDS: INSULIN NPH/REG 70/30 MIX INJ 100 UNIT/ML CARTRIDGE SQ SCH ×2 (09:30→17:06)
[2017-02-11] MEDS: INSULIN NPH, HUMAN ISOPHANE 100 UNIT/ML VIAL SQ SCH ×2 (09:33→21:00)
--- NOTE | 2017-02-11 18:54 | NUR ---
RN MS NOTES PATIENT A/OX1, BREATHING EVEN AND UNLABORED, NO DISTRESS NOTED, TURNED AND REPOSITIONED EVERY 2 HOURS AND NEEDED, Z-GUARD APPLIED ON SACRAL REDNESS, NO CHANGES NOTED, GTF ONGOING AND TOLERATING WELL, NO RESIDUAL NOTED, NEEDS ATTENDED, AWAITING FOR PLACEMENT, UPDATES GIVEN TO MIKAL, CALL LIGHT WITHINR EACH, WILL ENDORSE TO WAXER FOR SANJEEV.
--- NOTE | 2017-02-11 19:20 | NUR ---
TELE/RN NOTES RECEIVED PT. LYING IN BED. PT. IS AWAKE, ALERT AND ORIENTED TO SELF. PT. IS TRACH/VENT DEPENDENT. PT. HAS SHILEY #8 TRACH PRESENT AND INTACT. BREATHING EVEN AND UNLABORED. NO SOB, RESPIRATORY DISTRESS OR S/S OF PAIN NOTED AT THIS TIME. PT. WITH EXTERNAL APPLICATION PROJECT LEADER PRESENT AND INTACT. CURRENT RHYTHM = SINUS RHYTHM HR 89. PT. WITH RIGHT UPPER ARM MIDLINE PRESENT, PATENT AND INTACT. PT. WITH G-TUBE PRESENT, PATENT AND INTACT ADMINISTERING TO PT. GLYTROL @ 45 ML/HR. PT. TOLERATING WELL. NO RESIDUAL NOTED AT THIS TIME. PT. WITH 1:1 SITTER PRESENT AT BEDSIDE. BED LOCKED AND IN LOWEST POSITION, SIDE RAILS UP X3, CALL LIGHT WITHIN REACH, WILL CONTINUE TO MONITOR.
[2017-02-11 20:00] VITALS: BP 132/70
[2017-02-11] MEDS: clonazePAM 0.5 MG TABLET GT SCH (21:07)
[2017-02-11] MEDS: QUETIAPINE FUMARATE 100 MG TABLET PO SCH (21:07)
[2017-02-11] MEDS: ATORVASTATIN 10 MG TABLET GT SCH (21:16)
--- NOTE | 2017-02-11 21:37 | NUR ---
MS/RN NOTES PT. 2100 NOVOLIN INSULIN NOT ADMINISTERED TO PT. DUE TO RISK OF HYPOGLYCEMIA. PT. BLOOD SUGAR IS 98 MG/DL. WILL CONTINUE TO MONITOR AND ASSESS FOR S/S OF HYPO/HYPERGLYCEMIA.
[2017-02-12] VITALS: BP 134/65
[2017-02-12] MEDS: BLOOD SUGAR DIAGNOSTIC 1 EACH STRIP IN SCH ×4 (00:29→17:42)
[2017-02-12] MEDS: CIPROFLOXACIN HCL 0.3% 5 ML BOTTLE EACHEYE SCH ×6 (00:30→21:21)
[2017-02-12] MEDS: VANCOMYCIN HCL 125 MG/2.5 ML ORAL.SUSP PO SCH ×4 (00:30→17:00)
[2017-02-12] MEDS: ALBUTEROL FS 2.5 MG/0.5 ML VIAL.NEB NEB SCH ×4 (01:16→19:49)
[2017-02-12] MEDS: IPRATROPIUM NEB FS 0.5 MG/2.5 ML AMPUL.NEB NEB SCH ×4 (01:16→19:49)
[2017-02-12] MEDS: GLYTROL 1,000 ML BAG GT PRN (02:42)
[2017-02-12 04:00] VITALS: BP 124/65
[2017-02-12] MEDS: INSULIN REGULAR, HUMAN 100 UNIT/ML 3 ML VIAL SQ PRN ×3 (05:37→17:46)
[2017-02-12] MEDS: GABAPENTIN 100 MG CAPSULE GT SCH ×3 (05:37→21:22)
[2017-02-12] MEDS: DIVALPROEX SODIUM 125 MG CAP.SPRINK GT SCH ×3 (05:37→21:22)
--- NOTE | 2017-02-12 06:50 | NUR ---
TELE/RN NOTES PT. IS LYING IN BED RESTING. PT. IS TRACH/VENT DEPENDENT. PT. HAS SHILEY #8 TRACH PRESENT AND INTACT. BREATHING EVEN AND UNLABORED. NO SOB, RESPIRATORY DISTRESS OR S/S OF PAIN NOTED AT THIS TIME. PT. WITH EXTERNAL COUNTERINTELLIGENCE AGENT PRESENT AND INTACT. CURRENT RHYTHM = SINUS RHYTHM HR 88. PT. WITH RIGHT UPPER ARM MIDLINE PRESENT, PATENT AND INTACT. PT. WITH G-TUBE PRESENT, PATENT AND INTACT ADMINISTERING TO PT. GLYTROL @ 45 ML/HR. PT. TOLERATING WELL. NO RESIDUAL NOTED AT THIS TIME AND THROUGHOUT SHIFT. ALL PT. NEEDS MET. PT. OFFLOADED. TURNED AND REPOSITIONED Q2H AND NEEDED. NO S/S OF HYPO/HYPERGLYCEMIA NOTED AT THIS TIME AND THROUGHOUT SHIFT. PT. WITH 1:1 SITTER PRESENT AT BEDSIDE. BED LOCKED AND IN LOWEST POSITION, SIDE RAILS UP X3, CALL LIGHT WITHIN REACH, WILL ENDORSE TO DAYSHIFT NURSE FOR CONTINUITY OF CARE.
--- NOTE | 2017-02-12 08:10 | NUR ---
TOURIST INFORMATION OFFICER NOTES PATIENT RESTING IN BED. PT VANESSA COTO #8. NO SOB. PT NPO GLYTROL @ 45 ML/HR. MONITOR SHOWS SINUS RHYTHM 84. NO APPARENT S/S OF PAIN OR DISTRESS. LACQUER MACHINE FEEDER PRESENT.
[2017-02-12 08:20] VITALS: BP 88/43
[2017-02-12] MEDS: LEVETIRACETAM SOL (5 ML) 100 MG/ML UDC GT SCH ×2 (08:59→21:22)
[2017-02-12] MEDS: ISOSORBIDE DINITRATE (10MG) 10 MG TABLET GT SCH ×2 (09:00→21:22)
[2017-02-12] MEDS: FUROSEMIDE 20 MG TABLET GT SCH ×2 (09:00→21:22)
[2017-02-12] MEDS: FOLIC ACID 1 MG TABLET GT SCH (09:01)
[2017-02-12] MEDS: ASPIRIN 81 MG TAB.CHEW GT SCH (09:01)
[2017-02-12] MEDS: ACIDOPHILUS/BULGARICUS 1 EACH TAB.CHEW PO SCH ×3 (09:01→16:47)
[2017-02-12] MEDS: QUETIAPINE FUMARATE 25 MG TABLET GT SCH ×2 (09:01→16:47)
[2017-02-12] MEDS: OLANZAPINE 5 MG TABLET GT SCH ×2 (09:02→21:22)
[2017-02-12] MEDS: PANTOPRAZOLE 40 MG/PACK PACK GT SCH ×2 (09:03→16:47)
[2017-02-12] MEDS: PROSOURCE / PROSTAT (PYXIS) 30 ML UDC GT SCH ×2 (09:17→16:47)
[2017-02-12] MEDS: ENOXAPARIN SODIUM 40 MG/0.4 ML DISP.SYRIN SQ SCH (09:29)
[2017-02-12] MEDS: INSULIN NPH, HUMAN ISOPHANE 100 UNIT/ML VIAL SQ SCH ×2 (09:31→21:33)
[2017-02-12] MEDS: Z GUARD REMEDY 2 OZ OINT TP SCH ×2 (09:32→21:23)
[2017-02-12] MEDS: INSULIN NPH/REG 70/30 MIX INJ 100 UNIT/ML CARTRIDGE SQ SCH ×2 (09:32→17:45)
--- NOTE | 2017-02-12 10:24 | NUR ---
MEDICATIONS HELD PT BP 88/43 HR 90
[2017-02-12 12:00] VITALS: BP 112/55
--- NOTE | 2017-02-12 13:00 | NUR ---
MEDICAL LABORATORY ASSISTANT NOTES PT IN BED, NO SIGN OF PAIN OR DISTRESS, MEDS GIVEN ORDERED, TURNED AND REPOSITIONED Q2 HRS, GT FEEDING INFUSING WELL, KEPT CLEAN AND COMFORTABLE.
[2017-02-12 16:25] VITALS: BP 145/57
--- NOTE | 2017-02-12 18:31 | NUR ---
RN CLOSING NOTES PT RESTING IN BED. NO APPARENT S/S OF PAIN OR DISTRESS. NO SOB. TRACH/VENT INTACT. TRACH FRANSISCA #8. GTUBE PATENT AND INTACT GLYTROL @45ML/HR. TOLERATING FEEDING WELL. PT MONITORED SINUS RHYTHM -90'S. PT TURNED AND REPOSITIONED Q2HR. 1:1 SITTER PRESENT. CALL LIGHT WITHIN REACH.
--- NOTE | 2017-02-12 19:30 | NUR ---
HOME DESIGNER NOTE: PATIENT RESTING IN BED, NO ACUTE DISTRESS NOTED. BREATHING EVEN AND UNLABORED, NO SOB NOTED. VENT SETTINGS IN PLACE. TELE READING SR 90. G-TUBE IN PLACE, WITH 5ML OF RESIDUAL, INFUSING GLYTROL AT 45 ML/HR. HOB ELEVATED. MIDLINE TO RIGHT UPPER ARM IN PLACE. NO S/S OF HYPER/HYPOGLYCEMIA NOTED. SITTER AT BEDSIDE. BED LOCKED AND IN LOWEST POSITION, CALL LIGHT IN REACH. CONTINUE TO MONITOR.
[2017-02-12 20:00] VITALS: BP 122/64
[2017-02-12] MEDS: QUETIAPINE FUMARATE 100 MG TABLET PO SCH (21:22)
[2017-02-12] MEDS: ATORVASTATIN 10 MG TABLET GT SCH (21:22)
[2017-02-12] MEDS: clonazePAM 0.5 MG TABLET GT SCH (21:22)
[2017-02-13] VITALS: BP 108/71
[2017-02-13] MEDS: VANCOMYCIN HCL 125 MG/2.5 ML ORAL.SUSP PO SCH ×3 (00:03→12:04)
[2017-02-13] MEDS: BLOOD SUGAR DIAGNOSTIC 1 EACH STRIP IN SCH ×3 (00:04→12:02)
[2017-02-13] MEDS: CIPROFLOXACIN HCL 0.3% 5 ML BOTTLE EACHEYE SCH ×4 (00:05→12:09)
[2017-02-13] MEDS: INSULIN REGULAR, HUMAN 100 UNIT/ML 3 ML VIAL SQ PRN ×3 (00:06→12:02)
--- NOTE | 2017-02-13 00:10 | NUR ---
RAPID TRANSIT OPERATOR NOTE: PATIENT BLOOD SUGAR LEVEL 216 MG/DL, PATIENT TO RECEIVE 6 UNITS PER SLIDING SCALE AND RECEIVED 34 UNITS OF NOVOLIN N PER MD ORDER. NO S/S OF HYPERGLYCEMIA NOTED. WILL CONTINUE TO MONITOR.
[2017-02-13] MEDS: IPRATROPIUM NEB FS 0.5 MG/2.5 ML AMPUL.NEB NEB SCH ×2 (01:25→07:25)
[2017-02-13] MEDS: ALBUTEROL FS 2.5 MG/0.5 ML VIAL.NEB NEB SCH ×2 (01:25→07:25)
[2017-02-13 04:02] VITALS: BP 109/47
[2017-02-13] MEDS: GABAPENTIN 100 MG CAPSULE GT SCH ×2 (05:33→12:04)
[2017-02-13] MEDS: DIVALPROEX SODIUM 125 MG CAP.SPRINK GT SCH ×2 (05:33→12:04)
--- NOTE | 2017-02-13 06:15 | NUR ---
FORESTRY CREW CHIEF NOTE: PATIENT RESTING IN BED, NO ACUTE DISTRESS NOTED. BREATHING EVEN AND UNLABORED, NO SOB NOTED. VENT SETTINGS IN PLACE. TELE READING SR 90-99. G-TUBE IN PLACE, INFUSING GLYTROL AT 45 ML/HR. HOB ELEVATED. MIDLINE TO RIGHT UPPER ARM IN PLACE. BLOOD SUGAR LEVEL 273MG/DL, PATIENT TO RECEIVE 9 UNITS PER SLIDING SCALE. NO S/S OF HYPER/HYPOGLYCEMIA NOTED. SITTER AT BEDSIDE. BED LOCKED AND IN LOWEST POSITION, CALL LIGHT IN REACH. WILL ENDORSE TO DAY NURSE TO CONTINUE WITH PLAN OF CARE.
[2017-02-13] MEDS: GLYTROL 1,000 ML BAG GT PRN (06:52)
[2017-02-13 08:00] VITALS: BP 84/50
--- NOTE | 2017-02-13 08:00 | NUR ---
tele window shade ring sewer: initial assessment received pt in bed with eyes open, a/ox1, able to mouth words. vent dependent with settings: ac 15, tv500, fio2 at 40% and with peep of 5. hob elevated. on g-tube feeding, jenise. well. no residual obtained. reality orientation provided prn. tele sr= 87. continue on 1:[address] scott at bedside and informed md re: b/p of 84/50 and pt for d'c planning. pt has hypotensive baseline per dr. scott. will continue to monitor.
[2017-02-13] MEDS: Z GUARD REMEDY 2 OZ OINT TP SCH (08:29)
[2017-02-13] MEDS: FUROSEMIDE 20 MG TABLET GT SCH (08:30)
[2017-02-13] MEDS: ISOSORBIDE DINITRATE (10MG) 10 MG TABLET GT SCH (08:30)
[2017-02-13] MEDS: ASPIRIN 81 MG TAB.CHEW GT SCH (09:00)
[2017-02-13] MEDS: OLANZAPINE 5 MG TABLET GT SCH (09:00)
[2017-02-13] MEDS: QUETIAPINE FUMARATE 25 MG TABLET GT SCH (09:00)
[2017-02-13] MEDS: FOLIC ACID 1 MG TABLET GT SCH (09:00)
[2017-02-13] MEDS: PROSOURCE / PROSTAT (PYXIS) 30 ML UDC GT SCH (09:00)
[2017-02-13] MEDS: PANTOPRAZOLE 40 MG/PACK PACK GT SCH (09:00)
[2017-02-13] MEDS: ACIDOPHILUS/BULGARICUS 1 EACH TAB.CHEW PO SCH ×2 (09:00→12:04)
[2017-02-13] MEDS: LEVETIRACETAM SOL (5 ML) 100 MG/ML UDC GT SCH (09:00)
[2017-02-13] MEDS: ENOXAPARIN SODIUM 40 MG/0.4 ML DISP.SYRIN SQ SCH (09:12)
[2017-02-13] MEDS: INSULIN NPH/REG 70/30 MIX INJ 100 UNIT/ML CARTRIDGE SQ SCH (09:12)
[2017-02-13] MEDS: INSULIN NPH, HUMAN ISOPHANE 100 UNIT/ML VIAL SQ SCH (09:13)
--- NOTE | 2017-02-13 10:00 | NUR ---
tele supervisor travel trailer: notes incontinent of bowel and bladder rendered. kept clean and dry. z guard applied to perineal excoriation with redness for skin management. turned and repositioned. hob elevated. sitter remains at bedside. will continue to monitor.
--- NOTE | 2017-02-13 11:10 | NUR ---
tele stone driller: notes daughter at bedside. cn informed me that pt is leaving at 1330 to go [facility] via ambulance. daughter agreed and will wait until she leaves the hospital. report given to heber (nurse) for continuity of care.
--- NOTE | 2017-02-13 11:20 | NUR ---
tele orthopaedic nurse: notes mrsa swabbed collected to both nares per policy prior to discharge. called [facility] (lab) to supervisor opening and picking specimen.
--- NOTE | 2017-02-13 11:40 | NUR ---
tele marketing support coordinator: d'c instructions discharged instructions given to arron (daughter) and verbalized understanding. pt unable to sign discharge papers due to cognitive impairment. discharge papers copy provided to daughter.
[2017-02-13 12:00] VITALS: BP 94/59
--- NOTE | 2017-02-13 12:30 | NUR ---
tele beach lifeguard: notes incontinent of bladder rendered, kept clean and dry. good pericare rendered. applied z guard to perineum area. turned and repositioned and kept comfortable. daughter remains at bedside. awaiting for ambulance.
--- NOTE | 2017-02-13 13:00 | NUR ---
chad ibarran: notes [facility] here and report given to jamee and one of the crew. mid line removed with tip intact with no bleeding, no redness, and no swelling noted. g-tube feeding stopped and flushed with 30ml of h2o. daughter remains at bedside. Addendum: 02/13/17 at 1344 by LISA IBARRAN tele removed.
--- NOTE | 2017-02-13 13:30 | NUR ---
tele prosthodontist: discharged discharged to [facility] via ambulance accompanied by 2 crew and 1 r.t. in stable condition.
== END 2017-02-13 13:30 | DRG 371 ==
LOC: ER 09:03 → TELE 10:45
PROVIDERS: ADMIT Internal Medicine; ATTEND Internal Medicine
PROC: 5A1955Z Respiratory Ventilation, Greater than 96 Consecutive Hours (ICD-10-PCS; principal; 2017-01-18)
PROC: 05H533Z Insertion of Infusion Device into Right Subclavian Vein, Percutaneous Approach (ICD-10-PCS; 2017-01-26)
PROC: B546ZZA Ultrasonography of Right Subclavian Vein, Guidance (ICD-10-PCS; 2017-01-26)
DX: A04.72 Enterocolitis due to Clostridium difficile, not specified as recurrent (principal); N17.0 Acute kidney failure with tubular necrosis; J96.20 Acute and chronic respiratory failure, unspecified whether with hypoxia or hypercapnia; Z99.11 Dependence on respirator [ventilator] status; E44.0 Moderate protein-calorie malnutrition; J96.11 Chronic respiratory failure with hypoxia; Z93.0 Tracheostomy status; E11.22 Type 2 diabetes mellitus with diabetic chronic kidney disease; I48.91 Unspecified atrial fibrillation; E66.2 Morbid (severe) obesity with alveolar hypoventilation; E11.65 Type 2 diabetes mellitus with hyperglycemia; T76.91XA Unspecified adult maltreatment, suspected, initial encounter; I12.9 Hypertensive chronic kidney disease with stage 1 through stage 4 chronic kidney disease, or unspecified chronic kidney disease; N18.9 Chronic kidney disease, unspecified; Z68.31 Body mass index [BMI] 31.0-31.9, adult; E78.5 Hyperlipidemia, unspecified; E87.6 Hypokalemia; E86.0 Dehydration; E03.9 Hypothyroidism, unspecified; D63.8 Anemia in other chronic diseases classified elsewhere; F41.9 Anxiety disorder, unspecified; E83.42 Hypomagnesemia; G40.909 Epilepsy, unspecified, not intractable, without status epilepticus; G93.89 Other specified disorders of brain; I25.10 Atherosclerotic heart disease of native coronary artery without angina pectoris; K21.9 Gastro-esophageal reflux disease without esophagitis; R13.10 Dysphagia, unspecified; Z79.4 Long term (current) use of insulin; Z79.82 Long term (current) use of aspirin; Z79.899 Other long term (current) drug therapy; Z93.1 Gastrostomy status; I70.0 Atherosclerosis of aorta; F25.9 Schizoaffective disorder, unspecified; F39 Unspecified mood [affective] disorder; Z86.73 Personal history of transient ischemic attack (TIA), and cerebral infarction without residual deficits
CPT/HCPCS: 31720; 36415; 36569; 36600; 70450-TC; 71010-TC; 80048-TC; 80076-TC; 80305; 81000-TC; 82272-TC; 82962-TC; 83540-TC; 83605-TC; 83735-TC; 84100-TC; 84484-TC; 85025-TC; 86850-TC; 87040-TC; 87081-TC; 87086-TC; 93971-TC; 94002-TC; 94003-TC; 94762-TC; 99082-TC; A4606; A6402; G0480; J1650; J1815; J1953; J2270; J2405; J3475; J3490; J7030; J7040; Z7610